=== PATIENT | male | born 1940 | race Caucasian/White ===

== ENCOUNTER 2020-05-05 21:10 | Inpatient (IN) | payer MEDICARE, SELFPAY ==
[2020-05-05 23:33] VITALS: BMI 38.8
[2020-05-06] VITALS (8 sets, daily range): BP systolic 135–178; BP diastolic 71–88; PULSE 66–86; RESP 18–20; TEMP 36.4–37.2; O2SAT 94–100; BMI 37.9; BMI 38.8
[2020-05-06] MEDS: Furosemide 40 MG/4 ML VIAL IVPUSH ×3 (01:00→17:31)
[2020-05-06] MEDS: 0.9 % Sodium Chloride Flush 3 ML SYRINGE 2 ML IVFLUSH ×4 (01:00→23:22)
[2020-05-06] MEDS: carvediloL 6.25 MG TABLET PO ×3 (01:00→21:21)
[2020-05-06] MEDS: Pantoprazole Sodium 40 MG/10 ML VIAL IVPUSH ×3 (01:00→17:31)
[2020-05-06] MEDS: HYDROcodone Bit/Acetam 5/325 TABLET 1 TAB PO ×3 (05:20→21:47)
--- NOTE | 2020-05-06 06:18 | P.HPIM_ITS ---
History of Present Illness Date of Service: 05/05/20 Chief Complaint: multiple complaint /abnormal labs this is a pleasant 79-year-old male with past medical history of COPD, HTN, diabetes, heart failure, CAD, aortic valve replacement who presents to the hospital with multiple complaints. Patient reports that he was called by his PCP to come into the ED for abnormal labs. He reports that he has not been feeling well for the past 1 week or so. He has been having dizziness, lightheadedness, walking imbalance due to the lightheadedness. He also had nausea and vomiting about 6 days ago that has now resolved. He was suffering from constipation but received MiraLax from his PCP which caused him to have d iarrhea but the diarrhea has not resolved. He did have dark stools for the past 3 days. He has been having shortness of breath on exertion with no cough . He has had some lower extremity edema. Fourteen point review of system otherwise negative On arrival to the ED patient hemodynamically stable with no significant abnormal vitals. Next labs are significant for hemoglobin of 9.9 ( 12.8 in April 23), hematocrit of 31.8, MCV of 91.4. Labs are also significant for troponin of 42.5, BNP of 858, and stool occult blood positive patient will be admitted for further management Past medical history: COPD, hypertension, diabetes, heart failure, CAD, AVR Surgical history: Back surgery, neck surgery, cataracts, hernia repair, aortic valve replacement family history: Mother had breast cancer and coronary artery disease social history: Comes from home, lives with his , denies any tobacco alcohol or illicit drug Review of Systems Review of Systems: Yes all other systems are reviewed and are negative FOR[facility]LY [facility] Social History Advance Directives: No Advance Directives Information Provided: No Meds Allergies Allergy/AdvReac Type Severity Reaction Status Date / Time No Known Allergies* Allergy Uncoded 04/23/20 13:56 Home Medications Medication Instructions Recorded Confirmed Type acetaminophen 1,000 mg PO BID PRN 05/06/20 05/06/20 History albuterol sulfate 2.5 mg INHALATION Q4H PRN 05/06/20 05/06/20 History albuterol sulfate [ProAir HFA] 2 puff PO Q4H PRN 05/06/20 05/06/20 History apixaban [Eliquis] 1 tab PO BID 05/06/20 05/06/20 History carvedilol 1 tab PO BID 05/06/20 05/06/20 History docusate sodium [Stool Softener] 1 cap PO BID 05/06/20 05/06/20 History furosemide 1 tab PO DAILY 05/06/20 05/06/20 History hydrocodone-acetaminophen 1 tab PO Q8H PRN 05/06/20 05/06/20 History latanoprost 1 drp OPHTHALMIC-RIGHT BEDTIME 05/06/20 05/06/20 History levobunolol 1 drp OPHTHALMIC-RIGHT BID 05/06/20 05/06/20 History magnesium hydroxide [Milk of 30 ml PO BID PRN 05/06/20 05/06/20 History Magnesia] metformin 1 tab PO BID 05/06/20 05/06/20 History polyethylene glycol 3350 [Miralax] 17 g PO BEDTIME 05/06/20 05/06/20 History potassium chloride 1 tab PO BID 05/06/20 05/06/20 History simvastatin 1 tab PO BEDTIME 05/06/20 05/06/20 History Physical Exam Vital Signs and Narrative: Vital Signs: Last Vital Signs Temp 98.2 F 05/06/20 04:00 Pulse 72 05/06/20 04:00 Resp 18 05/06/20 04:00 BP 160/82 H 05/06/20 04:00 Pulse Ox 96 05/06/20 04:00 Body Mass Index 38.8 on arrival patient's vitals were significant for 98.4 temp, pulse of 73, respiratory rate of 18, blood pressure 168/77 and pulse ox of 95% on room air Const: General: cooperative and no acute distress Orientati on/consciousness: patient oriented x3 Eyes: General: appearance normal, both eyes and all related structures Pupils: Equal, round and reactive pupils present Resp: Effort & Inspection: normal respiratory effort Cardio: Rate: regular rate Rhythm: regular rhythm GI: Other: no tenderness, no guarding or rebound, no distention Inspection: Yes normal to inspection Skin: General skin exam: no rashes or lesions noted Neuro: General: patient oriented x3 Cranial nerves: Yes Equal, round and reactive pupils present Extrem: General: Yes edema ( 1+ lower extremity edema) Results Labs Labs: Laboratory Tests 05/05/20 05/05/20 05/05/20 17:07 17:07 18:18 WBC 8.8 RBC 3.48 L Hgb 9.9 L Hct 31.8 L MCV 91.4 MCH 28.4 MCHC 31.1 RDW Coeff of Leighann 14.1 Plt Count 344 D MPV 9.4 Immature Gran % (Auto) 0.6 H Neut % (Auto) 73.2 H Lymph % (Auto) 17.3 L [place] % (Auto) 7.1 Eos % (Auto) 1.7 Baso % (Auto) 0.1 Abs Immat Gran (auto) 0.05 H Absolute Lymphs (auto) 1.5 Absolute Monos (auto) 0.6 Absolute Eos (auto) 0.2 Absolute Basos (auto) 0.0 Absolute Nucleated RBC 0.000 Nucleated RBC % (auto) 0.0 Absolute Neutrophils 6.5 PT INR APTT Sodium 144 Potassium 3.6 Chloride 104 Bicarbonate 31 H Anion Gap 13 BUN 10 D Creatinine 0.95 Estimated Creat Clear 73.0 Est GFR (Non-Af Amer) > 60 Random Glucose 143 H Fasting Glucose Calcium Magnesium 2.0 Iron 40 L TIBC 256 Iron Saturation 16 L Ferritin 229 Total Bilirubin 0.3 Direct Bilirubin 0.2 AST 39 H D ALT 60 H Alkaline Phosphatase 109 D Troponin I High Sens B-Natriuretic Peptide Total Protein 5.9 L Albumin 3.4 L Lipase 33 Vitamin B12 Folate Urine Color Urine Appearance Urine pH Ur Specific [place] Urine Protein Urine Glucose (UA) Urine Ketones Urine Blood Urine Nitrite Urine WBC (Auto) Stool Occult Blood POS H ABO Group 05/05/20 05/05/20 05/05/20 20:36 20:36 20:36 WBC RBC Hgb Hct MCV MCH MCHC RDW Coeff of [place] Plt Count MPV Immature Gran % (Auto) Neut % (Auto) Lymph % (Auto) [place] % (Auto) Eos % (Auto) Baso % (Auto) Abs Immat Gran (auto) Absolute Lymphs (auto) Absolute Monos (auto) Absolute Eos (auto) Absolute Basos (auto) Absolute Nucleated RBC Nucleated RBC % (auto) Absolute Neutrophils PT 16.7 H INR 1.4 H APTT 33.4 Sodium Potassium Chloride Bicarbonate Anion Gap BUN Creatinine Estimated Creat Clear Est GFR (Non-Af Amer) Random Glucose Fasting Glucose Calcium Magnesium Iron TIBC Iron Saturation Ferritin Total Bilirubin Direct Bilirubin AST ALT Alkaline Phosphatase Troponin I High Sens 42.5 H B-Natriuretic Peptide 858 H Total Protein Albumin Lipase Vitamin B12 Folate Urine Color Urine Appearance Urine pH Ur Specific [place] Urine Protein Urine Glucose (UA) Urine Ketones Urine Blood Urine Nitrite Urine WBC (Auto) Stool Occult Blood ABO Group T&S COMPLETED 05/05/20 05/05/20 05/05/20 21:10 21:47 22:28 WBC RBC Hgb Hct MCV MCH MCHC RDW Coeff of Leighann Plt Count MPV Immature Gran % (Auto) Neut % (Auto) Lymph % (Auto) [place] % (Auto) Eos % (Auto) Baso % (Auto) Abs Immat Gran (auto) Absolute Lymphs (auto) Absolute Monos (auto) Absolute Eos (auto) Absolute Basos (auto) Absolute Nucleated RBC Nucleated RBC % (auto) Absolute Neutrophils PT INR APTT Sodium Potassium Chloride Bicarbonate Anion Gap BUN Creatinine Estimated Creat Clear Est GFR (Non-Af Amer) Random Glucose Fasting Glucose Calcium Magnesium Iron TIBC Iron Saturation Ferritin Cancelled Total Bilirubin Direct Bilirubin AST ALT Alkaline Phosphatase Troponin I High Sens 40.6 H B-Natriuretic Peptide Total Protein Albumin Lipase Vitamin B12 Folate Urine Color YELLOW Urine Appearance CLEAR Urine pH 7.0 Ur Specific [place] 1.010 Urine Protein NEG Urine Glucose (UA) NEG Urine Ketones NEG Urine Blood NEG Urine Nitrite NEG Urine WBC (Auto) NEG Stool Occult Blood ABO Group 05/06/20 05/06/20 05/06/20 07:00 07:00 07:00 WBC Not Rcvd RBC Not Rcvd Hgb Not Rcvd Hct Not Rcvd MCV Not Rcvd MCH Not Rcvd MCHC Not Rcvd RDW Coeff of Leighann Not Rcvd Plt Count Not Rcvd MPV Not Rcvd Immature Gran % (Auto) Not Rcvd Neut % (Auto) Not Rcvd Lymph % (Auto) Not Rcvd [place] % (Auto) Not Rcvd Eos % (Auto) Not Rcvd Baso % (Auto) Not Rcvd Abs Immat Gran (auto) Not Rcvd Absolute Lymphs (auto) Not Rcvd Absolute Monos (auto) Not Rcvd Absolute Eos (auto) Not Rcvd Absolute Basos (auto) Not Rcvd Absolute Nucleated RBC Not Rcvd Nucleated RBC % (auto) Not Rcvd Absolute Neutrophils PT INR APTT Sodium Not Rcvd Potassium Not Rcvd Chloride Not Rcvd Bicarbonate Not Rcvd Anion Gap Not Rcvd BUN Not Rcvd Creatinine Not Rcvd Estimated Creat Clear Not Rcvd Est GFR (Non-Af Amer) Not Rcvd Random Glucose Fasting Glucose Not Rcvd Calcium Not Rcvd Magnesium Iron TIBC Iron Saturation Ferritin Total Bilirubin Direct Bilirubin AST ALT Alkaline Phosphatase Troponin I High Sens B-Natriuretic Peptide Total Protein Albumin Lipase Vitamin B12 Not Rcvd Folate Not Rcvd Urine Color Urine Appearance Urine pH Ur Specific [place] Urine Protein Urine Glucose (UA) Urine Ketones Urine Blood Urine Nitrite Urine WBC (Auto) Stool Occult Blood ABO Group Assessment and Plan (1) Normocytic anemia: Status: Acute - most likely lower GI bleed, normal BUN - stool guaiac positive - patient on Eliquis for history of AVR?, no history of AFib plan: - PPI 40 IV b.i.d. - given his history of CAD hemoglobin threshold of 8 for transfusion - NPO - GI consult (2) CHF exacerbation: Status: Acute - elevated BNP - has dyspnea, orthopnea and PND and lower extremity edema - most likely due to anemia - on 40 of Lasix daily at home plan - will start on Lasix 40 IV b.i.d. - strict I&O, daily weight, low-sodium diet - echo cardio - consult cardiology (3) COPD (chronic obstructive pulmonary disease): Status: Acute no evidence of exacerbation - continue DuoNeb p.r.n. (4) Diabetes mellitus type 2 in obese: Status: Acute on metformin at home will start him on low-dose sliding scale insulin diabetic diet (5) Hypertension: Status: Acute stable continue carvedilol (6) Coronary artery disease: Status: Acute denies any chest pain will continue carvedilol
[2020-05-06 06:43] LABS: MANUAL DIFF FLAG NO
[2020-05-06 06:47] LABS: Basophils Percent Auto 0.2 % (0-2); Eosinophils Absolute Auto 0.1 X10*3/uL (0.0-0.4); Eosinophils Percent Auto 1.6 % (0-4); Hematocrit 30.8 % (42-52); Hemoglobin 9.6 g/dl (14.0-18.0); Imm Gran Abs Auto 0.06 X10*3/uL (0.00-0.03); Imm Gran Pct Auto 0.7 % (0.0-0.4); Lymphocytes Absolute Auto 1.5 X10*3/uL (1.2-4.9); Lymphocytes Percent Auto 18.8 % (20-40); Mean Corpuscular HGB Conc 31.2 g/dl (31.0-36.0); Mean Corpuscular Hemoglobin 28.5 pg (27.0-33.0); Mean Corpuscular Volume 91.4 fL (80-98); Mean Platelet Volume 9.7 fL (9.4-12.4); Monocytes Absolute Auto 0.6 X10*3/uL (0.1-1.2); Monocytes Percent Auto 7.6 % (2-11); Neutrophils Absolute Auto 5.8 X10*3/uL (2.0-8.3); Neutrophils Percent Auto 71.1 % (45-73); Platelet Count 360 X10*3/uL (160-400); Red Blood Count 3.37 X10*6/uL (4.60-5.80); Red Cell Distribution Width 14.2 % (11.0-16.0); White Blood Count 8.1 X10*3/uL (4.8-10.8)
[2020-05-06 06:56] LABS: Anion Gap 10 (12-20); Blood Urea Nitrogen 9 mg/dL (9-16); Calcium 8.2 mg/dL (8.4-10.2); Carbon Dioxide 32 mmol/L (22-29); Chloride 104 mmol/L (96-108); Creatinine Clr Calc Pharmacy 77.9; Estimated Glomerular Filt Rate > 60; Glucose Fasting 139 mg/dL (60-99); Potassium 3.4 mmol/l (3.3-5.1); Sodium 143 mmol/L (135-145)
[2020-05-06 07:26] LABS: Glucose, Whole Blood 134 mg/dL (60-115)
--- NOTE | 2020-05-06 08:02 | P.CDIC_ITS ---
CDI Concurrent Query Service Date: 05/06/20 Documentation Clarification: Please clarify if you are treating a proba ble/suspected/likely or confirmed: Acute diastolic and/or systolic Congestive heart failure Acute on chronic diastolic and/or systolic Congestive heart failure Please specify if known Acute CHF, unclear if diastolic/systolic Provider Response: CHF PLEASE DO NOT DELETE/MODIFY EXISTING CONTENT Additional information is needed in order to code to the highest accuracy and appropriate Severity of Illness (SOI). Please clarify the information noted below in your progress notes and discharge summary. Risk Factors/Clinical Indicators/Treatments ED: Clinical impression: Acute moderate systolic, left ventricular congestive heart failure. Hypoxemia. BNP 858 History of Congestive heart failure CDS: Franchesca Garsia Contact Number: [phone] Please Review the information above and exercise your independent professional judgment in responding to the query. If you concur, pleas document in the PROGRESS NOTES and DISCHARGE SUMMARY. If you do not agree with the query, please document in the query above. THIS QUERY IS PART OF THE PERMANENT MEDICAL RECORD
[2020-05-06 08:05] LABS: Folate 18.3 ng/mL (> or = 4.0); Vitamin B12 820 pg/mL (200-900)
--- NOTE | 2020-05-06 09:15 | CA_ITS ---
Transthoracic Echocardiogram Patient (Last, First, Middle): Vishal Ford F Gender: Male Date of : 1940 Age: 79 Procedure Date: 05/06/2020 Procedure Type: Transthoracic Echocardiogram Location: [facility] [place] Height: 167.64 cm Weight: 108.86 kg BSA: 2.16 m2 Heart Rate: bpm Seam Stay Stitcher: THI Fatima MD: Rebecca Harper MD Rn Lpn Cna: Boris Samaniego MD Symptoms: [facility] [place] Study Quality: Technically Difficult ECG Rhythm: Undetermined question ventricularly paced Conclusions: - 1. Technically difficult study despite using definity contrast 2. Normal LV systolic function with impaired relaxation filling pattern 3. Mildly dilated left atrium 4. Severe mitral annular calcification 5. Limited evaluation of cardiac valves with normal cardiac valvular Doppler 6. Normal RV systolic pressure Findings Procedure Information Contrast agent, definity, is being given per protocol without apparent complications. Left Ventricle The left ventricular systolic function is normal. The visually estimated ejection fraction is between 55-60%. Regional wall motion abnormalities can not be excluded due to suboptimal endocardial definition. There is paradoxical septal motion consistent with a right ventricular pacemaker. Diastolic function is indeterminate on the basis of available data. Right Ventricle The right ventricle was not well visualized. There is a pacemaker wire seen in the right ventricle. Atria The left atrium is mildly dilated. The right atrium was not well visualized. A pacemaker wire is identified in the right atrium. Aortic Valve The aortic valve was not well visualized. There is no aortic valve stenosis. There is no aortic valve regurgitation. Mitral Valve There is severe mitral annular calcification. There is trace mitral valve regurgitation. There is no mitral valve stenosis. Pulmonic Valve The pulmonic valve was not well visualized. Tricuspid Valve Likely normal tricuspid valve structure and function. There is mild tricuspid valve regurgitation. The right ventricular systolic pressure is normal. The right ventricular systolic pressure is 33 mmHg. There is no evidence of pulmonary hypertension. Great Vessels The aorta was not well visualized. The pulmonary artery was not well visualized. Venous The inferior vena cava was not well visualized. Pericardium/Pleural The pericardium was not well visualized. Prior Study Comparison No prior study available for comparison. Measurements 2D Systolic Function EF 4C: 65.30 >55% EF 2C: 52.80 >55% EF BiP: 57.50 >55% Mitral Valve MV Pk E: 0.69 MV PK A: 1.07 MV Decel Time: 144.00 E/A: 0.60 E'Lateral: 7.54 E'Medial: 7.25 E/E' Med: 9.60 E/E' Lat: 9.20 PHT: 42.00 MVA PHT: 5.24 Decel [place]: 4.80 Aortic Valve AoV Pk Arun: 2.82 AoV Mn Arun: 2.08 AoV VTI: 0.62 AoV Pk Grad: 32.00 Aov Mn Grad: 20.00 LVOT LVOT Pk Arun: 1.08 LVOT Mn Arun: 0.79 LVOT VTI: 0.22 LVOT Pk Grad: 5.00 LVOT Mn Grad: 3.00 Diastolic Function MV Pk E: 0.69 MV Pk A: 1.07 E/A: 0.60 E'Medial: 7.25 E/E' Med: 9.60 E' Laterial: 7.54 E/E' Lat: 9.20 Tricuspid Valve TR Pk Arun: 2.50 TR Pk Grad: 25.00 RA Press: 8.00 RVSP: 33.00 Updated in Other Vendor System with Status of Final Boris Samaniego MD electronically signed on 05/06/2020 4:42:29 PM with status of Final
--- NOTE | 2020-05-06 10:10 | MHC.CM.PN ---
IMM 05/06/20 Male 79 Lives with Dtr. Pt reports independent ADLS and ambulation with devices, shower bench, walker. No HCP Ed provided, pt declined. DP home no services family transport. CM will follow to assess for change in DC needs.
[2020-05-06 11:12] LABS: Glucose, Whole Blood 266 mg/dL (60-115)
[2020-05-06] MEDS: Insulin Lispro 100 UNIT/ML 3 ML VIAL SUBCUT (12:02)
[2020-05-06] MEDS: Albuterol Sulfate 90 MCG 8 GM INHALER 2 PUFF INHALE ×3 (12:03→21:40)
--- NOTE | 2020-05-06 14:31 | PM.IMPN ---
Subjective Subjective Date of Service: 05/06/20 Interval History: seen and examined this morning Still feeling short of breath with minimal exertion denies any bleeding Constitutional Constitutional: Reports fatigue and Denies fever(s) Cardiovascular Cardiovascular: Denies chest pain and Reports dyspnea Respiratory Respiratory: Reports dyspnea Gastrointestinal Gastrointestinal: Reports abdominal pain and Reports vomiting Endocrine Endocrine: Reports fatigue Physical Exam Vital Signs and I&O and Narrative: Vital Signs and I&O: Vital Signs Temp 97.5 F 05/06/20 12:00 Pulse 76 05/06/20 12:00 Resp 20 05/06/20 12:00 BP 135/73 05/06/20 12:00 Pulse Ox 94 05/06/20 12:00 Intake & Output 05/05/20 05/06/20 05/06/20 18:59 06:59 18:59 Intake Total 400 / 400 240 / 240 Balance 400 / 400 240 / 240 Weight 106.651 kg 109.1 kg Intake: Intake, Oral [place] unt 400 / 400 240 / 240 Other: Continuous Bladd er Irrigation Fluid - Amount I nstilled Condom 400 Body Mass Index 38.8 Const: General: cooperative and comfortable Orientation/consciousness: oriented to person and oriented to place Chest: Chest palpation & inspection: normal inspection of the chest Resp: Effort & Inspection: normal respiratory effort Auscultation: clear to auscultation bilaterally Cardio: Heart sounds: S1 normal heart sound present and S2 normal heart sound present Neuro: General: oriented to person and oriented to place Objective Data Current Medications Generic Name Dose Route Start Last Admin Trade Name Freq PRN Reason Stop Dose Admin Acetaminophen 650 mg 05/06/20 00:01 Acetaminophen 325 Mg Tablet PO Q6H PRN FEVER/PAIN.MILD (SCALE 1-3) Hydrocodone Bitart/Acetaminophen 1 tab 05/06/20 00:01 05/06/20 13:59 Hydrocodone Bit/Acetam 5/325 Tablet PO 1 tab Q8H PRN Administration Pain, Moderate (Pain Scale 4-6 Albuterol Sulfate 2 puff 05/06/20 00:01 05/06/20 12:03 Albuterol Sulfate 90 Mcg 8 Gm Inhaler INHALE 2 puff RQ4H PRN Administration RESPIRATORY DISTRESS Carvedilol 6.25 mg 05/06/20 09:00 05/06/20 09:36 Carvedilol 6.25 Mg Tablet PO 6.25 mg BID DAVID Administration Docusate Sodium 100 mg 05/06/20 00:01 Docusate Sodium 100 Mg Capsule PO Q24H PRN Constipation Furosemide 40 mg 05/06/20 09:00 05/06/20 09:35 Furosemide 40 Mg/4 Ml Vial IVPUSH 40 mg BID@0900,1800 [facility] Administration Protocol Insulin Human Lispro 0 unit 05/06/20 07:30 05/06/20 12:02 Insulin Lispro 100 Unit/Ml 3 Ml Vial SUBCUT 6 unit QIDACHS [facility] Administration Protocol Latanoprost 1 drop 05/06/20 21:00 Latanoprost 0.005 % Ophth Danielle 2.5 Ml Drops EYE-RIGHT BEDTIME [facility] Ondansetron HCl 4 mg 05/06/20 00:01 Ondansetron Hcl 4 Mg/2 Ml Vial IVPUSH Q8H PRN Nausea and Vomiting Pantoprazole Sodium 40 mg 05/06/20 06:30 05/06/20 09:35 Pantoprazole Sodium 40 Mg/10 Ml Vial IVPUSH 40 mg BID@0630,1630 [facility] Administration Potassium Chloride 10 meq 05/06/20 09:00 05/06/20 09:36 Potassium Chloride Er 10 Meq Capsule.Er PO 10 meq BID DAVID Administration Sodium Chloride 2 ml 05/06/20 08:00 05/06/20 09:38 0.9 % Sodium Chloride Flush 3 Ml Syringe IVFLUSH 2 ml QSHIFT [facility] Administration Labs CBC & Chem 7: 05/06/20 07:00 05/06/20 07:00 Labs: Laboratory Results - last 24 hr 05/05/20 05/05/20 05/05/20 17:07 17:07 18:18 MCV 91.4 MCH 28.4 MCHC 31.1 RDW RDW Coeff of Leighann 14.1 Plt Count 344 D MPV 9.4 Immature Gran % (Auto) 0.6 H Neut % (Auto) 73.2 H Lymph % (Auto) 17.3 L Hodgeman % (Auto) 7.1 Eos % (Auto) 1.7 Baso % (Auto) 0.1 Neut # (Auto) Lymph # (Auto) Hodgeman # (Auto) Eos # (Auto) Baso # (Auto) Abs Immat Gran (auto) 0.05 H Absolute Lymphs (auto) 1.5 Absolute Monos (auto) 0.6 Absolute Eos (auto) 0.2 Absolute Basos (auto) 0.0 Absolute Nucleated RBC 0.000 Nucleated RBC % (auto) 0.0 Absolute Neutrophils 6.5 PT INR APTT Bicarbonate 31 H Anion Gap 13 Estimated Creat Clear 73.0 Estim Creat Clear Calc Estimated GFR Est GFR (Non-Af Amer) > 60 POC Glucose Random Glucose 143 H Fasting Glucose Calcium Magnesium 2.0 Iron 40 L TIBC 256 Iron Saturation 16 L Ferritin 229 Total Bilirubin 0.3 Direct Bilirubin 0.2 AST 39 H D ALT 60 H Alkaline Phosphatase 109 D Troponin I High Sens B-Natriuretic Peptide Total Protein 5.9 L Albumin 3.4 L Lipase 33 Vitamin B12 Folate Urine Color Urine Appearance Urine pH Ur Specific [place] Urine Protein Urine Glucose (UA) Urine Ketones Urine Blood Urine Nitrite Urine WBC (Auto) Stool Occult Blood POS H Blood Type ABO Group Antibody Screen 05/05/20 05/05/20 05/05/20 20:34 20:36 20:36 MCV MCH MCHC RDW RDW Coeff of Leighann Plt Count MPV Immature Gran % (Auto) Neut % (Auto) Lymph % (Auto) Hodgeman % (Auto) Eos % (Auto) Baso % (Auto) Neut # (Auto) Lymph # (Auto) Hodgeman # (Auto) Eos # (Auto) Baso # (Auto) Abs Immat Gran (auto) Absolute Lymphs (auto) Absolute Monos (auto) Absolute Eos (auto) Absolute Basos (auto) Absolute Nucleated RBC Nucleated RBC % (auto) Absolute Neutrophils PT INR APTT Bicarbonate Anion Gap Estimated Creat Clear Estim Creat Clear Calc Estimated GFR Est GFR (Non-Af Amer) POC Glucose Random Glucose Fasting Glucose Calcium Magnesium Iron TIBC Iron Saturation Ferritin Total Bilirubin Direct Bilirubin AST ALT Alkaline Phosphatase Troponin I High Sens 42.5 H B-Natriuretic Peptide 858 H Total Protein Albumin Lipase Vitamin B12 Folate Urine Color Urine Appearance Urine pH Ur Specific [place] Urine Protein Urine Glucose (UA) Urine Ketones Urine Blood Urine Nitrite Urine WBC (Auto) Stool Occult Blood Blood Type O Positive ABO Group T&S COMPLETED Antibody Screen NEGATIVE 05/05/20 05/05/20 05/05/20 20:36 21:10 21:47 MCV MCH MCHC RDW RDW Coeff of Leighann Plt Count MPV Immature Gran % (Auto) Neut % (Auto) Lymph % (Auto) Hodgeman % (Auto) Eos % (Auto) Baso % (Auto) Neut # (Auto) Lymph # (Auto) Hodgeman # (Auto) Eos # (Auto) Baso # (Auto) Abs Immat Gran (auto) Absolute Lymphs (auto) Absolute Monos (auto) Absolute Eos (auto) Absolute Basos (auto) Absolute Nucleated RBC Nucleated RBC % (auto) Absolute Neutrophils PT 16.7 H INR 1.4 H APTT 33.4 Bicarbonate Anion Gap Estimated Creat Clear Estim Creat Clear Calc Estimated GFR Est GFR (Non-Af Amer) POC Glucose Random Glucose Fasting Glucose Calcium Magnesium Iron TIBC Iron Saturation Ferritin Cancelled Total Bilirubin Direct Bilirubin AST ALT Alkaline Phosphatase Troponin I High Sens B-Natriuretic Peptide Total Protein Albumin Lipase Vitamin B12 Folate Urine Color YELLOW Urine Appearance CLEAR Urine pH 7.0 Ur Specific Aurora 1.010 Urine Protein NEG Urine Glucose (UA) NEG Urine Ketones NEG Urine Blood NEG Urine Nitrite NEG Urine WBC (Auto) NEG Stool Occult Blood Blood Type ABO Group Antibody Screen 05/05/20 05/06/20 05/06/20 22:28 05:48 05:48 MCV 91.4 MCH 28.5 MCHC 31.2 RDW 14.2 RDW Coeff of Leighann Plt Count 360 MPV 9.7 Immature Gran % (Auto) 0.7 H Neut % (Auto) 71.1 Lymph % (Auto) 18.8 L Hodgeman % (Auto) 7.6 Eos % (Auto) 1.6 Baso % (Auto) 0.2 Neut # (Auto) 5.8 Lymph # (Auto) 1.5 Hodgeman # (Auto) 0.6 Eos # (Auto) 0.1 Baso # (Auto) 0.0 Abs Immat Gran (auto) 0.06 H Absolute Lymphs (auto) Absolute Monos (auto) Absolute Eos (auto) Absolute Basos (auto) Absolute Nucleated RBC 0.000 Nucleated RBC % (auto) 0.0 Absolute Neutrophils PT INR APTT Bicarbonate Anion Gap 10 L Estimated Creat Clear Estim Creat Clear Calc 77.9 Estimated GFR > 60 Est GFR (Non-Af Amer) POC Glucose Random Glucose Fasting Glucose 139 H Calcium 8.2 L Magnesium Iron TIBC Iron Saturation Ferritin Total Bilirubin Direct Bilirubin AST ALT Alkaline Phosphatase Troponin I High Sens 40.6 H B-Natriuretic Peptide Total Protein Albumin Lipase Vitamin B12 Folate Urine Color Urine Appearance Urine pH Ur Specific [place] Urine Protein Urine Glucose (UA) Urine Ketones Urine Blood Urine Nitrite Urine WBC (Auto) Stool Occult Blood Blood Type ABO Group Antibody Screen 05/06/20 05/06/20 05/06/20 05:48 05:48 07:00 MCV MCH MCHC RDW RDW Coeff of Leighann Plt Count MPV Immature Gran % (Auto) Neut % (Auto) Lymph % (Auto) Hodgeman % (Auto) Eos % (Auto) Baso % (Auto) Neut # (Auto) Lymph # (Auto) Hodgeman # (Auto) Eos # (Auto) Baso # (Auto) Abs Immat Gran (auto) Absolute Lymphs (auto) Absolute Monos (auto) Absolute Eos (auto) Absolute Basos (auto) Absolute Nucleated RBC Nucleated RBC % (auto) Absolute Neutrophils PT INR APTT Bicarbonate Not Rcvd Anion Gap Not Rcvd Estimated Creat Clear Not Rcvd Estim Creat Clear Calc Estimated GFR Est GFR (Non-Af Amer) Not Rcvd POC Glucose Random Glucose Fasting Glucose Not Rcvd Calcium Not Rcvd Magnesium Iron TIBC Iron Saturation Ferritin Total Bilirubin Direct Bilirubin AST ALT Alkaline Phosphatase Troponin I High Sens B-Natriuretic Peptide Total Protein Albumin Lipase Vitamin B12 820 Folate 18.3 Urine Color Urine Appearance Urine pH Ur Specific [place] Urine Protein Urine Glucose (UA) Urine Ketones Urine Blood Urine Nitrite Urine WBC (Auto) Stool Occult Blood Blood Type O Positive ABO Group Antibody Screen 05/06/20 05/06/20 05/06/20 07:00 07:00 07:20 MCV Not Rcvd MCH Not Rcvd MCHC Not Rcvd RDW RDW Coeff of Leighann Not Rcvd Plt Count Not Rcvd MPV Not Rcvd Immature Gran % (Auto) Not Rcvd Neut % (Auto) Not Rcvd Lymph % (Auto) Not Rcvd Hodgeman % (Auto) Not Rcvd Eos % (Auto) Not Rcvd Baso % (Auto) Not Rcvd Neut # (Auto) Lymph # (Auto) Hodgeman # (Auto) Eos # (Auto) Baso # (Auto) Abs Immat Gran (auto) Not Rcvd Absolute Lymphs (auto) Not Rcvd Absolute Monos (auto) Not Rcvd Absolute Eos (auto) Not Rcvd Absolute Basos (auto) Not Rcvd Absolute Nucleated RBC Not Rcvd Nucleated RBC % (auto) Not Rcvd Absolute Neutrophils PT INR APTT Bicarbonate Anion Gap Estimated Creat Clear Estim Creat Clear Calc Estimated GFR Est GFR (Non-Af Amer) POC Glucose 134 H Random Glucose Fasting Glucose Calcium Magnesium Iron TIBC Iron Saturation Ferritin Total Bilirubin Direct Bilirubin AST ALT Alkaline Phosphatase Troponin I High Sens B-Natriuretic Peptide Total Protein Albumin Lipase Vitamin B12 Not Rcvd Folate Not Rcvd Urine Color Urine Appearance Urine pH Ur Specific [place] Urine Protein Urine Glucose (UA) Urine Ketones Urine Blood Urine Nitrite Urine WBC (Auto) Stool Occult Blood Blood Type ABO Group Antibody Screen 05/06/20 10:59 MCV MCH MCHC RDW RDW Coeff of Leighann Plt Count MPV Immature Gran % (Auto) Neut % (Auto) Lymph % (Auto) Hodgeman % (Auto) Eos % (Auto) Baso % (Auto) Neut # (Auto) Lymph # (Auto) Hodgeman # (Auto) Eos # (Auto) Baso # (Auto) Abs Immat Gran (auto) Absolute Lymphs (auto) Absolute Monos (auto) Absolute Eos (auto) Absolute Basos (auto) Absolute Nucleated RBC Nucleated RBC % (auto) Absolute Neutrophils PT INR APTT Bicarbonate Anion Gap Estimated Creat Clear Estim Creat Clear Calc Estimated GFR Est GFR (Non-Af Amer) POC Glucose 266 H Random Glucose Fasting Glucose Calcium Magnesium Iron TIBC Iron Saturation Ferritin Total Bilirubin Direct Bilirubin AST ALT Alkaline Phosphatase Troponin I High Sens B-Natriuretic Peptide Total Protein Albumin Lipase Vitamin B12 Folate Urine Color Urine Appearance Urine pH Ur Specific [place] Urine Protein Urine Glucose (UA) Urine Ketones Urine Blood Urine Nitrite Urine WBC (Auto) Stool Occult Blood Blood Type ABO Group Antibody Screen Progress Note: A&P (1) Symptomatic anemia: Status: Acute (2) Coronary artery disease: Status: Acute (3) Hypertension: Status: Acute (4) Diabetes mellitus type 2 in obese: Status: Acute (5) COPD (chronic obstructive pulmonary disease): Status: Acute (6) CHF exacerbation: Status: Acute Assessment and Plan: This is a 79-year-old male with a past medical history of CHF, diabetes, on Eliquis (unclear why) who presents with SOB. 1. Symptomatic anemia FOBT positive h/h stable eliquis on hold GI consult 2. CHF exacerbation iv lasix echo i/o 3. DM ISS diabetic diet 4. CAD coreg Full Code
[2020-05-06 16:37] LABS: Glucose, Whole Blood 167 mg/dL (60-115)
[2020-05-06 16:37] LABS: Glucose, Whole Blood 138 mg/dL (60-115)
[2020-05-06 21:55] LABS: Glucose, Whole Blood 146 mg/dL (60-115)
[2020-05-06] MEDS: Latanoprost 0.005 % Ophth Sol 2.5 ML DROPS 1 DROP EYE-RIGHT (23:03)
[2020-05-06] MEDS: Acetaminophen 325 MG TABLET 650 MG PO (23:21)
[2020-05-07] VITALS (8 sets, daily range): BP systolic 136–180; BP diastolic 69–100; PULSE 69–85; RESP 16–22; TEMP 36.1–37; O2SAT 94–97; BMI 38.5
[2020-05-07] MEDS: Albuterol Sulfate 90 MCG 8 GM INHALER 2 PUFF INHALE ×4 (02:14→21:45)
[2020-05-07 07:34] LABS: Glucose, Whole Blood 169 mg/dL (60-115)
[2020-05-07] MEDS: Insulin Lispro 100 UNIT/ML 3 ML VIAL SUBCUT ×3 (08:06→21:41)
[2020-05-07] MEDS: Docusate Sodium 100 MG CAPSULE PO (08:16)
[2020-05-07] MEDS: HYDROcodone Bit/Acetam 5/325 TABLET 1 TAB PO (08:16)
[2020-05-07] MEDS: Furosemide 40 MG/4 ML VIAL IVPUSH ×2 (08:17→16:51)
[2020-05-07] MEDS: Pantoprazole Sodium 40 MG/10 ML VIAL IVPUSH ×2 (08:18→16:51)
[2020-05-07] MEDS: 0.9 % Sodium Chloride Flush 3 ML SYRINGE 2 ML IVFLUSH ×3 (08:24→21:42)
[2020-05-07] MEDS: carvediloL 6.25 MG TABLET PO ×2 (08:26→21:41)
[2020-05-07 11:31] LABS: Glucose, Whole Blood 269 mg/dL (60-115)
--- NOTE | 2020-05-07 12:01 | P.PNIM_ITS ---
Subjective Subjective Interval History: Seen in f/u for SOB d/t CHF. Anemia with with FOB + Less SOB but feels constipatated Physical Exam Vital Signs and I&O and Narrative: Vital Signs and I&O: Vital Signs Temp 96.9 F 05/07/20 11:13 Pulse 71 05/07/20 11:13 Resp 20 05/07/20 11:13 BP 141/69 H 05/07/20 11:13 Pulse Ox 97 05/07/20 11:13 Const: General: cooperative, comfortable and no acute distress Orientation/consciousness: oriented to person, oriented to place and patient oriented x3 Eyes: General: appearance normal, both eyes and all related structures Pupils: Equal, round and reactive pupils present Chest: Chest palpation & inspection: normal inspection of the chest Resp: Effort & Inspection: normal respiratory effort Auscultation: clear to auscultation bilaterally Cardio: Rate: regular rate Rhythm: regular rhythm Heart sounds: S1 normal heart sound present and S2 normal heart sound present GI: Other: no tenderness, no guarding or rebound, no distention Inspection: Yes normal to inspection Skin: General skin exam: no rashes or lesions noted Neuro: General: oriented to person, oriented to place and patient oriented x3 Cranial nerves: Yes Equal, round and reactive pupils present Extrem: General: Yes edema ( 1+ lower extremity edema) Objective Data Current Medications Generic Name Dose Route Start Last Admin Trade Name Freq PRN Reason Stop Dose Admin Acetaminophen 650 mg 05/06/20 00:01 05/06/20 23:21 Acetaminophen 325 Mg Tablet PO 650 mg Q6H PRN Administration FEVER/PAIN.MILD (SCALE 1-3) Hydrocodone Bitart/Acetaminophen 1 tab 05/06/20 00:01 05/07/20 08:16 Hydrocodone Bit/Acetam 5/325 Tablet PO 1 tab Q8H PRN Administration Pain, Moderate (Pain Scale 4-6 Albuterol Sulfate 2 puff 05/06/20 00:01 05/07/20 08:08 Albuterol Sulfate 90 Mcg 8 Gm Inhaler INHALE 2 puff RQ4H PRN Administration RESPIRATORY DISTRESS Carvedilol 6.25 mg 05/06/20 09:00 05/07/20 08:26 Carvedilol 6.25 Mg Tablet PO 6.25 mg BID DAVID Administration Docusate Sodium 100 mg 05/06/20 00:01 05/07/20 08:16 Docusate Sodium 100 Mg Capsule PO 100 mg Q24H PRN Administration Constipation Furosemide 40 mg 05/06/20 09:00 05/07/20 08:17 Furosemide 40 Mg/4 Ml Vial IVPUSH 40 mg BID@0900,1800 [facility] Administration Protocol Insulin Human Lispro 0 unit 05/06/20 07:30 05/07/20 11:43 Insulin Lispro 100 Unit/Ml 3 Ml Vial SUBCUT 6 unit QIDACHS [facility] Administration Protocol Latanoprost 1 drop 05/06/20 21:00 05/06/20 23:03 Latanoprost 0.005 % Ophth Danielle 2.5 Ml Drops EYE-RIGHT 1 drop BEDTIME DAVID Administration Ondansetron HCl 4 mg 05/06/20 00:01 Ondansetron Hcl 4 Mg/2 Ml Vial IVPUSH Q8H PRN Nausea and Vomiting Pantoprazole Sodium 40 mg 05/06/20 06:30 05/07/20 08:18 Pantoprazole Sodium 40 Mg/10 Ml Vial IVPUSH 40 mg BID@0630,1630 [facility] Administration Potassium Chloride 10 meq 05/06/20 09:00 05/07/20 08:17 Potassium Chloride Er 10 Meq Capsule.Er PO 10 meq BID DAVID Administration Sodium Chloride 2 ml 05/06/20 08:00 05/07/20 08:24 0.9 % Sodium Chloride Flush 3 Ml Syringe IVFLUSH 2 ml QSHIFT [facility] Administration Labs CBC & Chem 7: 05/06/20 07:00 05/06/20 07:00 Labs: Laboratory Results - last 24 hr 05/06/20 05/06/20 05/06/20 15:55 16:26 21:48 POC Glucose 167 H 138 H 146 H 05/07/20 05/07/20 07:20 11:26 POC Glucose 169 H 269 H Assessment and Plan (1) Symptomatic anemia: Status: Acute (2) Coronary artery disease: Status: Acute (3) Hypertension: Status: Acute (4) Diabetes mellitus type 2 in obese: Status: Acute (5) COPD (chronic obstructive pulmonary disease): Status: Acute (6) CHF exacerbation: Status: Acute Assessment and Plan: 79-year-old male with a past medical history of CHF, diabetes, on Eliquis (unclear why) who presents with SOB. 1. Symptomatic Anemia FOBT positive h/h stable eliquis on hold GI consult is pending 2. CHF exacerbation IV whit Downey to PO today echo pending i/o 3. DM ISS diabetic diet 4. CAD coreg 5. Constipation--bowel regimen Full Code
[2020-05-07 12:40] LABS: Hematocrit 33.4 % (42-52); Hemoglobin 10.5 g/dl (14.0-18.0); Mean Corpuscular HGB Conc 31.4 g/dl (31.0-36.0); Mean Corpuscular Hemoglobin 28.8 pg (27.0-33.0); Mean Corpuscular Volume 91.5 fL (80-98); Mean Platelet Volume 9.2 fL (9.4-12.4); Platelet Count 388 X10*3/uL (160-400); Red Blood Count 3.65 X10*6/uL (4.60-5.80); Red Cell Distribution Width 14.3 % (11.0-16.0); White Blood Count 8.8 X10*3/uL (4.8-10.8)
--- NOTE | 2020-05-07 15:07 | MHC.CM.PN ---
HCP COMPLETED WITH PT TODAY NAMING HIS DAUGHTER WITH WHOM HE LIVES, ÁNGELA GAGE ([phone]) HIS PRIMARY AND HIS SON, LILIANA GAGE JR ([phone]) HIS SECONDARY PROXY.
[2020-05-07 16:47] LABS: Glucose, Whole Blood 145 mg/dL (60-115)
[2020-05-07 21:22] LABS: Glucose, Whole Blood 188 mg/dL (60-115)
[2020-05-07] MEDS: Latanoprost 0.005 % Ophth Sol 2.5 ML DROPS 1 DROP EYE-RIGHT (21:40)
[2020-05-08] VITALS (7 sets, daily range): BP systolic 146–166; BP diastolic 78–91; PULSE 64–78; RESP 18–20; TEMP 35.9–36.4; O2SAT 93–97; BMI 86.0
[2020-05-08] MEDS: HYDROcodone Bit/Acetam 5/325 TABLET 1 TAB PO ×3 (00:45→17:19)
[2020-05-08] MEDS: Acetaminophen 325 MG TABLET 650 MG PO ×3 (02:31→21:36)
[2020-05-08] MEDS: Pantoprazole Sodium 40 MG/10 ML VIAL IVPUSH ×2 (05:50→17:18)
[2020-05-08 07:58] LABS: Glucose, Whole Blood 158 mg/dL (60-115)
[2020-05-08] MEDS: carvediloL 6.25 MG TABLET PO ×2 (08:56→21:36)
[2020-05-08] MEDS: Furosemide 40 MG/4 ML VIAL IVPUSH (08:56)
[2020-05-08] MEDS: 0.9 % Sodium Chloride Flush 3 ML SYRINGE 2 ML IVFLUSH ×3 (08:57→21:37)
[2020-05-08] MEDS: Albuterol Sulfate 90 MCG 8 GM INHALER 2 PUFF INHALE (11:03)
[2020-05-08 11:52] LABS: Glucose, Whole Blood 216 mg/dL (60-115)
[2020-05-08] MEDS: Insulin Lispro 100 UNIT/ML 3 ML VIAL SUBCUT ×3 (12:15→21:36)
[2020-05-08] MEDS: Lactulose 20 GM/30 ML SOLUTION 15 GM PO (12:17)
--- NOTE | 2020-05-08 12:36 | CONS_ITS ---
DATE OF SERVICE: 05/07/2020 REFERRING PHYSICIAN: Dr. Haider REASON FOR CONSULTATION: Symptomatic anemia. HISTORY OF PRESENT ILLNESS: The patient is a pleasant 79-year-old man, who was admitted to the hospital on with complaints of lightheadedness and weakness with nausea and vomiting and dark stools. He has been noted to be anemic with a hemoglobin of 9.9, which is down from 12.8 in 2018. Stools have been occult blood positive. He reports no bleeding and no upper GI symptoms. He previously had undergone colonoscopy in [address] Cannon for bleeding diverticular disease as an outpatient. He has been on Eliquis, but has no history of atrial fibrillation. This has been held since admission. PAST MEDICAL HISTORY: 1. Congestive heart failure. 2. Coronary artery disease and aortic valve replacement. 3. Diabetes mellitus. 4. Hypertension. CURRENT MEDICATIONS: His current medication list is reviewed in the chart. ALLERGIES: NKDA. FAMILY HISTORY: This is reviewed with the patient and is noncontributory. SOCIAL HISTORY: There is no current tobacco, alcohol, or substance abuse. REVIEW OF SYSTEMS: SKIN: No pruritus. HEENT: Negative. CARDIOPULMONARY: No shortness of breath or chest pain. GASTROINTESTINAL: As above. GENITOURINARY: Negative. NEUROPSYCHIATRIC: Negative. PHYSICAL EXAMINATION: GENERAL: Reveals a pleasant male, lying comfortably in bed. VITAL SIGNS: Reviewed in electronic medical record and are stable. SKIN: Pale. HEENT: Shows no scleral icterus. NECK: Without lymphadenopathy or thyromegaly. LUNGS: Clear. HEART: Shows a regular rate and rhythm. S1, S2. No murmur. ABDOMEN: Soft without focal masses or tenderness. Bowel sounds are present. No organomegaly is noted. EXTREMITIES: Show edema. LABORATORY DATA: Reviewed. IMPRESSION: Anemia with Hemoccult-positive stools in the setting of anticoagulation. I did discuss colonoscopy and endoscopy with the patient. This will be arranged for Sunday if he is stable from a cardiac standpoint. He understands risks and benefits and agrees to proceed. Thanks for asking me to see him. I will follow him in the hospital with you. MD ELISABETH Ozuna/CATHERINE / [phone]
--- NOTE | 2020-05-08 16:51 | P.PNIM_ITS ---
Subjective Subjective Date of Service: 05/08/20 Interval History: patient admitted for shortness of breath and diagnosed to have congestive heart failure and anemia patient complaining of constipation this a.m. otherwise denies any shortness of breath, no chest pain no other acute issues overnight. Review of Systems General patient denies lightheadedness dizziness. Cardiovascular no chest pain, no palpitation. Respiratory complaining of shortness of breath and tightness,no cough. Skin no rash Physical Exam Vital Signs and I&O and Narrative: Vital Signs and I&O: Vital Signs Temp 97.4 F 05/08/20 16:23 Pulse 69 05/08/20 16:23 Resp 18 05/08/20 16:23 BP 149/82 H 05/08/20 16:23 Pulse Ox 96 05/08/20 16:23 Intake & Output 05/07/20 05/08/20 05/08/20 18:59 06:59 18:59 Intake Total 460 / 1660 1200 / 1660 480 / 480 Output Total 1800 / 3000 1200 / 3000 650 / 650 Balance -1340 / -1340 0 / -1340 -170 / -170 Urine Output (Aver age ml/kg/hr) 1.39 0.41 0.22 Weight 242 kg Intake: Intake, Oral [place]ister unt 460 / 1660 1200 / 1660 480 / 480 Output: Output, Urine Am ount 1200 / 2400 1200 / 2400 650 / 650 Output, Urine Am ount (Catheter) 600 / 600 Condom 600 / 600 Other: Meal Refused No NPO No Breakfast % Eate n 100% 100% Lunch % Eaten 100% 100% Afternoon Snack % Eaten 100 Dinner % Eaten 100% Diabetic Snack % Eaten 100 Urine Urinal Urine Color Yellow Body Mass Index 86.0 general patient sitting comfortably in no distress. Neck is supple no JVD. Lungs clear to auscultation diminished breath sounds right base no wheeze, no rh onchi noted. Gastrointestinal abdomen obese soft nontender bowel sounds audible. Heart regular rate rhythm. Extremities Bilateral pitting edema. Skin no rash no pallor. Neurological examination patient awake alert no neuro deficit noted. Objective Data Current Medications Generic Name Dose Route Start Last Admin Trade Name Freq PRN Reason Stop Dose Admin Acetaminophen 650 mg 05/06/20 00:01 05/08/20 14:53 Acetaminophen 325 Mg Tablet PO 650 mg Q6H PRN Administration FEVER/PAIN.MILD (SCALE 1-3) Hydrocodone Bitart/Acetaminophen 1 tab 05/06/20 00:01 05/08/20 09:02 Hydrocodone Bit/Acetam 5/325 Tablet PO 1 tab Q8H PRN Administration Pain, Moderate (Pain Scale 4-6 Albuterol Sulfate 2 puff 05/06/20 00:01 05/08/20 11:03 Albuterol Sulfate 90 Mcg 8 Gm Inhaler INHALE 2 puff RQ4H PRN Administration RESPIRATORY DISTRESS Carvedilol 6.25 mg 05/06/20 09:00 05/08/20 08:56 Carvedilol 6.25 Mg Tablet PO 6.25 mg BID DAVID Administration Docusate Sodium 100 mg 05/06/20 00:01 05/07/20 08:16 Docusate Sodium 100 Mg Capsule PO 100 mg Q24H PRN Administration Constipation Insulin Human Lispro 0 unit 05/06/20 07:30 05/08/20 12:15 Insulin Lispro 100 Unit/Ml 3 Ml Vial SUBCUT 4 unit QIDACHS [facility] Administration Protocol Latanoprost 1 drop 05/06/20 21:00 05/07/20 21:40 Latanoprost 0.005 % Ophth Danielle 2.5 Ml Drops EYE-RIGHT 1 drop BEDTIME [facility]ID Administration Ondansetron HCl 4 mg 05/06/20 00:01 Ondansetron Hcl 4 Mg/2 Ml Vial IVPUSH Q8H PRN Nausea and Vomiting Pantoprazole Sodium 40 mg 05/06/20 06:30 05/08/20 05:50 Pantoprazole Sodium 40 Mg/10 Ml Vial IVPUSH 40 mg BID@0630,1630 [facility] Administration Polyethylene Glycol/Electrolytes 4,000 ml 05/09/20 13:30 Peg 3350/Na Sulf,Bicarb,Cl/Kcl 4,000 Ml Soln.Recon PO 05/09/20 13:31 ONCE@1330 DAVID Potassium Chloride 10 meq 05/06/20 09:00 05/08/20 08:56 Potassium Chloride Er 10 Meq Capsule.Er PO 10 meq BID DAVID Administration Sodium Chloride 2 ml 05/06/20 08:00 05/08/20 08:57 0.9 % Sodium Chloride Flush 3 Ml Syringe IVFLUSH 2 ml QSHIFT [facility] Administration Labs CBC & Chem 7: 05/07/20 12:29 05/06/20 07:00 Labs: Laboratory Results - last 24 hr 05/07/20 05/08/20 05/08/20 21:14 07:54 11:48 POC Glucose 188 H 158 H 216 H Assessment and Plan (1) Symptomatic anemia: Status: Acute (2) Coronary artery disease: Status: Acute (3) Hypertension: Status: Acute (4) Diabetes mellitus type 2 in obese: Status: Acute (5) COPD (chronic obstructive pulmonary disease): Status: Acute (6) CHF exacerbation: Status: Acute (7) Normocytic anemia: Status: Acute Assessment and Plan: Symptomatic anemia. Patient presented with shortness of breath and weakness and noted to be anemic with his heme-positive stool patient seen by it applications manager and will be undergoing upper endoscopy and colonoscopy on Sunday continue current diet and NPO Sunday morning. Will continue IV Protonix no active GI bleed noted. Patient was on Eliquis currently held, Will verify medications with PCP on Sunday. acute Diastolic congestive heart failure patient noted to have elevated BNP on admission with bilateral leg edema currently on IV Lasix patient lung examination is normal therefore will hold IV Lasix and will place patient on ovidio ly Lasix once a day will follow BNP and electrolytes at a.m. History of COPD no acute exacerbation Will continue home inhalers. Constipation persistent will give lactulose and follow bowel movement. History of coronary artery disease continue Coreg no acute symptoms of chest pain. Insulin-dependent diabetes mellitus blood sugars elevated continue insulin sliding scale. DVT prophylaxis on compression boots.
[2020-05-08 17:11] LABS: Glucose, Whole Blood 163 mg/dL (60-115)
[2020-05-08 21:30] LABS: Glucose, Whole Blood 157 mg/dL (60-115)
[2020-05-08] MEDS: Latanoprost 0.005 % Ophth Sol 2.5 ML DROPS 1 DROP EYE-RIGHT (21:37)
[2020-05-09] VITALS (10 sets, daily range): BP systolic 132–180; BP diastolic 60–90; PULSE 65–77; RESP 14–20; TEMP 36.3–36.8; O2SAT 95–98; BMI 37.4
[2020-05-09] MEDS: Pantoprazole Sodium 40 MG/10 ML VIAL IVPUSH ×2 (05:38→18:55)
[2020-05-09] MEDS: HYDROcodone Bit/Acetam 5/325 TABLET 1 TAB PO ×2 (06:26→14:48)
[2020-05-09 06:51] LABS: MANUAL DIFF FLAG NO
[2020-05-09 07:02] LABS: Basophils Percent Auto 0.3 % (0-2); Eosinophils Absolute Auto 0.2 X10*3/uL (0.0-0.4); Eosinophils Percent Auto 2.6 % (0-4); Hematocrit 32.7 % (42-52); Hemoglobin 10.2 g/dl (14.0-18.0); Imm Gran Abs Auto 0.03 X10*3/uL (0.00-0.03); Imm Gran Pct Auto 0.4 % (0.0-0.4); Lymphocytes Percent Auto 28.3 % (20-40); Mean Corpuscular HGB Conc 31.2 g/dl (31.0-36.0); Mean Corpuscular Hemoglobin 28.7 pg (27.0-33.0); Mean Corpuscular Volume 91.9 fL (80-98); Mean Platelet Volume 9.4 fL (9.4-12.4); Monocytes Absolute Auto 0.6 X10*3/uL (0.1-1.2); Monocytes Percent Auto 8.8 % (2-11); Neutrophils Absolute Auto 4.1 X10*3/uL (2.0-8.3); Neutrophils Percent Auto 59.6 % (45-73); Platelet Count 379 X10*3/uL (160-400); Red Blood Count 3.56 X10*6/uL (4.60-5.80); Red Cell Distribution Width 14.4 % (11.0-16.0); White Blood Count 6.9 X10*3/uL (4.8-10.8)
[2020-05-09 07:23] LABS: B Type Natriuretic Peptide 217 pg/mL (<100)
[2020-05-09 07:35] LABS: Glucose, Whole Blood 127 mg/dL (60-115)
[2020-05-09 07:43] LABS: Anion Gap 12 (12-20); Carbon Dioxide 32 mmol/L (22-29); Chloride 101 mmol/L (96-108); Creatinine Clr Calc Pharmacy 70.1; Estimated Glomerular Filt Rate > 60; Glucose Random 132 mg/dL (60-115); Sodium 141 mmol/L (135-145)
[2020-05-09 07:46] LABS: Blood Urea Nitrogen 17 mg/dL (9-16); Calcium 8.7 mg/dL (8.4-10.2)
[2020-05-09] MEDS: lisinopriL 10 MG TABLET PO (09:58)
[2020-05-09] MEDS: Furosemide 40 MG/4 ML SOLUTION PO (09:58)
[2020-05-09] MEDS: carvediloL 6.25 MG TABLET PO ×2 (09:59→21:59)
[2020-05-09] MEDS: 0.9 % Sodium Chloride Flush 3 ML SYRINGE 2 ML IVFLUSH ×3 (10:00→22:00)
[2020-05-09 11:29] LABS: Glucose, Whole Blood 258 mg/dL (60-115)
[2020-05-09] MEDS: Insulin Lispro 100 UNIT/ML 3 ML VIAL SUBCUT (12:51)
[2020-05-09] MEDS: Albuterol Sulfate 90 MCG 8 GM INHALER 2 PUFF INHALE (12:55)
[2020-05-09] MEDS: PEG 3350/Na Sulf,Bicarb,Cl/KCL 4,000 ML SOLN.RECON 4000 ML PO (14:49)
--- NOTE | 2020-05-09 15:26 | P.PNIM_ITS ---
Subjective Subjective Date of Service: 05/09/20 Interval History: patient admitted for shortness of breath and diagnosed to have congestive heart failure and anemia patient complaining of Intermittent shortness of breath/ tightness feels related to COPD use updraft treatment twice daily and as needed albuterol at home, otherwise denies any chest pain no other acute patient had 2 normal bowel movements.. Review of Systems review of systems [employer] no headache, no dizziness CVS no chest pain, no palpitation. Gastrointestinal no nausea no vomiting constipation resolved Physical Exam Vital Signs and I&O and Narrative: Vital Signs and I&O: Vital Signs Temp 97.7 F 05/09/20 11:29 Pulse 74 05/09/20 11:29 Resp 20 05/09/20 11:29 BP 167/81 H 05/09/20 11:29 Pulse Ox 97 05/09/20 11:29 Intake & Output 05/08/20 05/09/20 05/09/20 18:59 06:59 18:59 Intake Total 480 / 480 720 / 720 Output Total 650 / 1000 350 / 1000 950 / 950 Balance -170 / -520 -350 / -520 -230 / -230 Urine Output (Aver age ml/kg/hr) 0.22 0.28 0.75 Weight 105.2 kg Intake: Intake, Oral [place] unt 480 / 480 720 / 720 Output: Output, Urine Am ount 650 / 1000 350 / 1000 950 / 950 Other: Meal Refused No NPO No Breakfast % Eate n 100% 100% Lunch % Eaten 100% 100% Urine Urinal Bathroom Urinal Urine Color Yellow Yellow Yellow Body Mass Index 37.4 general patient sitting comfortably in no distress. Neck is supple no JVD. Lungs clear to auscultation diminished breath sounds right base no wheeze, no rhonchi noted. Gastrointestinal abdomen obese , soft nontender bowel sounds audible. Heart regular rate rhythm. Extremities Bilateral pitting edema resolved. Skin no rash no pallor. Neurological examination patient awake alert no neuro deficit noted. Objective Data Current Medications Generic Name Dose Route Start Last Admin Trade Name Freq PRN Reason Stop Dose Admin Acetaminophen 650 mg 05/06/20 00:01 05/08/20 21:36 Acetaminophen 325 Mg Tablet PO 650 mg Q6H PRN Administration FEVER/PAIN.MILD (SCALE 1-3) Hydrocodone Bitart/Acetaminophen 1 tab 05/06/20 00:01 05/09/20 14:48 Hydrocodone Bit/Acetam 5/325 Tablet PO 1 tab Q8H PRN Administration Pain, Moderate (Pain Scale 4-6 Albuterol Sulfate 2 puff 05/06/20 00:01 05/09/20 12:55 Albuterol Sulfate 90 Mcg 8 Gm Inhaler INHALE 2 puff RQ4H PRN Administration RESPIRATORY DISTRESS Carvedilol 6.25 mg 05/06/20 09:00 05/09/20 09:59 Carvedilol 6.25 Mg Tablet PO 6.25 mg BID DAVID Administration Docusate Sodium 100 mg 05/06/20 00:01 05/07/20 08:16 Docusate Sodium 100 Mg Capsule PO 100 mg Q24H PRN Administration Constipation Furosemide 40 mg 05/09/20 09:15 05/09/20 09:58 Furosemide 40 Mg/4 Ml Solution PO 40 mg DAILY [facility] Administration Protocol Insulin Human Lispro 0 unit 05/06/20 07:30 05/09/20 12:51 Insulin Lispro 100 Unit/Ml 3 Ml Vial SUBCUT 6 unit QIDACHS [facility] Administration Protocol Latanoprost 1 drop 05/06/20 21:00 05/08/20 21:37 Latanoprost 0.005 % Ophth Danielle 2.5 Ml Drops EYE-RIGHT 1 drop BEDTIME DAVID Administration Lisinopril 10 mg 05/09/20 10:00 05/09/20 09:58 Lisinopril 10 Mg Tablet PO 10 mg DAILY DAVID Administration Protocol Ondansetron HCl 4 mg 05/06/20 00:01 Ondansetron Hcl 4 Mg/2 Ml Vial IVPUSH Q8H PRN Nausea and Vomiting Potassium Chloride 10 meq 05/06/20 09:00 05/09/20 09:59 Potassium Chloride Er 10 Meq Capsule.Er PO 10 meq BID DAVID Administration Sodium Chloride 2 ml 05/06/20 08:00 05/09/20 10:00 0.9 % Sodium Chloride Flush 3 Ml Syringe IVFLUSH 2 ml QSHIFT [facility] Administration Labs CBC & Chem 7: 05/09/20 06:27 05/09/20 06:27 Labs: Laboratory Results - last 24 hr 05/05/20 05/06/20 05/06/20 17:07 05:48 07:00 Hct 31.8 L 30.8 L Not Rcvd MCV MCH MCHC RDW Plt Count MPV Immature Gran % (Auto) Neut % (Auto) Lymph % (Auto) Harvey % (Auto) Eos % (Auto) Baso % (Auto) Neut # (Auto) Lymph # (Auto) Harvey # (Auto) Eos # (Auto) Baso # (Auto) Abs Immat Gran (auto) Absolute Nucleated RBC Nucleated RBC % (auto) Anion Gap Estim Creat Clear Calc Estimated GFR POC Glucose Random Glucose Calcium B-Natriuretic Peptide 05/07/20 05/08/20 05/08/20 12:29 17:07 21:20 Hct 33.4 L MCV MCH MCHC RDW Plt Count MPV Immature Gran % (Auto) Neut % (Auto) Lymph % (Auto) Harvey % (Auto) Eos % (Auto) Baso % (Auto) Neut # (Auto) Lymph # (Auto) Harvey # (Auto) Eos # (Auto) Baso # (Auto) Abs Immat Gran (auto) Absolute Nucleated RBC Nucleated RBC % (auto) Anion Gap Estim Creat Clear Calc Estimated GFR POC Glucose 163 H 157 H Random Glucose Calcium B-Natriuretic Peptide 05/09/20 05/09/20 05/09/20 06:27 06:27 06:27 Hct 32.7 L MCV 91.9 MCH 28.7 MCHC 31.2 RDW 14.4 Plt Count 379 MPV 9.4 Immature Gran % (Auto) 0.4 Neut % (Auto) 59.6 Lymph % (Auto) 28.3 Harvey % (Auto) 8.8 Eos % (Auto) 2.6 Baso % (Auto) 0.3 Neut # (Auto) 4.1 Lymph # (Auto) 2.0 Harvey # (Auto) 0.6 Eos # (Auto) 0.2 Baso # (Auto) 0.0 Abs Immat Gran (auto) 0.03 Absolute Nucleated RBC 0.000 Nucleated RBC % (auto) 0.0 Anion Gap 12 Estim Creat Clear Calc 70.1 Estimated GFR > 60 POC Glucose Random Glucose 132 H Calcium 8.7 B-Natriuretic Peptide 217 H 05/09/20 05/09/20 07:29 11:25 Hct MCV MCH MCHC RDW Plt Count MPV Immature Gran % (Auto) Neut % (Auto) Lymph % (Auto) Harvey % (Auto) Eos % (Auto) Baso % (Auto) Neut # (Auto) Lymph # (Auto) Harvey # (Auto) Eos # (Auto) Baso # (Auto) Abs Immat Gran (auto) Absolute Nucleated RBC Nucleated RBC % (auto) Anion Gap Estim Creat Clear Calc Estimated GFR POC Glucose 127 H 258 H Random Glucose Calcium B-Natriuretic Peptide Assessment and Plan (1) Symptomatic anemia: Status: Acute (2) Coronary artery disease: Status: Acute (3) Hypertension: Status: Acute (4) Diabetes mellitus type 2 in obese: Status: Acute (5) COPD (chronic obstructive pulmonary disease): Status: Acute (6) CHF exacerbation: Status: Acute (7) Normocytic anemia: Status: Acute Assessment and Plan: Symptomatic anemia. Patient presented with shortness of breath and weakness and noted to be anemic with heme-positive stool patient seen by archival records clerk and will be undergoing upper endoscopy and colonoscopy on Sunday continue current diet and NPO Sunday morning. Will continue IV Protonix no active GI bleed noted. Patient was on Eliquis due to risk of CVA currently held. acute Diastolic congestive heart failure patient noted to have elevated BNP on admission with bilateral leg edema no patient feeling significantly better no orthopnea, PND leg edema has resolved therefore patient placed back on by mouth Lasix 40 mg daily home dose. BNP trended down History of COPD no acute exacerbation Will continue home inhalers and add scheduled updraft twice daily. Constipation resolved History of coronary artery disease continue Coreg no acute symptoms of chest pain. Insulin-dependent diabetes mellitus blood sugars fluctuating continue insulin sliding scale. DVT prophylaxis on compression boots.
[2020-05-09 16:49] LABS: Glucose, Whole Blood 133 mg/dL (60-115)
[2020-05-09 21:55] LABS: Glucose, Whole Blood 129 mg/dL (60-115)
[2020-05-09] MEDS: Latanoprost 0.005 % Ophth Sol 2.5 ML DROPS 1 DROP EYE-RIGHT (21:59)
[2020-05-10] VITALS (12 sets, daily range): BP systolic 96–184; BP diastolic 53–100; PULSE 71–88; RESP 16–22; TEMP 36–36.8; O2SAT 95–100
[2020-05-10] MEDS: Albuterol Sulfate 90 MCG 8 GM INHALER 2 PUFF INHALE (04:01)
[2020-05-10] MEDS: Pantoprazole Sodium 40 MG/10 ML VIAL IVPUSH ×2 (05:25)
[2020-05-10 08:38] LABS: Glucose, Whole Blood 164 mg/dL (60-115)
[2020-05-10 11:22] LABS: Glucose, Whole Blood 155 mg/dL (60-115)
--- NOTE | 2020-05-10 12:28 | P.PNIM_ITS ---
Subjective Subjective Interval History: patient admitted for shortness of breath and diagnosed to have congestive heart failure and anemia patient complaining of chest tightness feels related to COPD use updraft treatment twice daily and as needed albuterol at home, otherwise denies any chest pain no other acute issues overnight, has had multiple normal bowel sounds last night due to colonoscopy prep. Physical Exam Vital Signs and I&O and Narrative: Vital Signs and I&O: Vital Signs Temp 97.8 F 05/10/20 08:24 Pulse 72 05/10/20 08:24 Resp 20 05/10/20 08:24 BP 160/88 H 05/10/20 08:24 Pulse Ox 95 05/10/20 08:24 Intake & Output 05/09/20 05/10/20 05/10/20 18:59 06:59 18:59 Intake Total 720 / 960 240 / 960 Output Total 1050 / 1450 400 / 1450 Balance -330 / -490 -160 / -490 Urine Output (Aver age ml/kg/hr) 0.83 0.32 Intake: Intake, Oral [place] unt 720 / 960 240 / 960 Output: Output, Urine Am ount 1050 / 1450 400 / 1450 Other: Breakfast % Eate n 100% Lunch % Eaten 100% Diabetic Snack % Eaten 100 Urine Urinal Urinal Urine Color Yellow Last Bowel Movem ent 05/10/20 Stool Bathroom Stool Color Clear Stool Consistenc y Watery Body Mass Index 37.4 General sitting comfortably in no distress. Neck is supple no JVD. Lungs clear to auscultation diminished breath sounds right base no wheeze, no rhonchi noted, no change from yesterday. Gastrointestinal abdomen obese , soft nontender bowel sounds audible. Heart regular rate rhythm. Extremities no edema. Skin no rash, no pallor. Neurological examination patient awake alert no neuro deficit noted. Objective Data Current Medications Generic Name Dose Route Start Last Admin Trade Name Freq PRN Reason Stop Dose Admin Acetaminophen 650 mg 05/06/20 00:01 05/08/20 21:36 Acetaminophen 325 Mg Tablet PO 650 mg Q6H PRN Administration FEVER/PAIN.MILD (SCALE 1-3) Hydrocodone Bitart/Acetaminophen 1 tab 05/06/20 00:01 05/09/20 14:48 Hydrocodone Bit/Acetam 5/325 Tablet PO 1 tab Q8H PRN Administration Pain, Moderate (Pain Scale 4-6 Albuterol Sulfate 2 puff 05/06/20 00:01 05/10/20 04:01 Albuterol Sulfate 90 Mcg 8 Gm Inhaler INHALE 2 puff RQ4H PRN Administration RESPIRATORY DISTRESS Carvedilol 6.25 mg 05/06/20 09:00 05/09/20 21:59 Carvedilol 6.25 Mg Tablet PO 6.25 mg BID DAVID Administration Docusate Sodium 100 mg 05/06/20 00:01 05/07/20 08:16 Docusate Sodium 100 Mg Capsule PO 100 mg Q24H PRN Administration Constipation Furosemide 40 mg 05/09/20 09:15 05/09/20 09:58 Furosemide 40 Mg/4 Ml Solution PO 40 mg DAILY [facility] Administration Protocol Insulin Human Lispro 0 unit 05/06/20 07:30 05/10/20 12:00 Insulin Lispro 100 Unit/Ml 3 Ml Vial SUBCUT Not Given QIDACHS [facility] Protocol Latanoprost 1 drop 05/06/20 21:00 05/09/20 21:59 Latanoprost 0.005 % Ophth Danielle 2.5 Ml Drops EYE-RIGHT 1 drop BEDTIME [facility] Administration Lisinopril 10 mg 05/09/20 10:00 05/09/20 09:58 Lisinopril 10 Mg Tablet PO 10 mg DAILY [facility] Administration Protocol Ondansetron HCl 4 mg 05/06/20 00:01 Ondansetron Hcl 4 Mg/2 Ml Vial IVPUSH Q8H PRN Nausea and Vomiting Pantoprazole Sodium 40 mg 05/09/20 16:00 05/10/20 05:25 Pantoprazole Sodium 40 Mg/10 Ml Vial IVPUSH 40 mg DAILY@0630 [facility] Administration Potassium Chloride 10 meq 05/06/20 09:00 05/09/20 21:59 Potassium Chloride Er 10 Meq Capsule.Er PO 10 meq BID DAVID Administration Sodium Chloride 2 ml 05/06/20 08:00 05/09/20 22:00 0.9 % Sodium Chloride Flush 3 Ml Syringe IVFLUSH 2 ml QSHIFT [facility] Administration Labs CBC & Chem 7: 05/09/20 06:27 05/09/20 06:27 Labs: Laboratory Results - last 24 hr 10/04/20 10/04/20 10/05/20 16:46 21:50 08:30 POC Glucose 133 H 129 H 164 H 05/10/20 11:13 POC Glucose 155 H Assessment and Plan (1) Symptomatic anemia: Status: Acute (2) Coronary artery disease: Status: Acute (3) Hypertension: Status: Acute (4) Diabetes mellitus type 2 in obese: Status: Acute (5) COPD (chronic obstructive pulmonary disease): Status: Acute (6) CHF exacerbation: Status: Acute (7) Normocytic anemia: Status: Acute Assessment and Plan: Symptomatic anemia. Patient presented with shortness of breath and weakness and noted to be anemic with heme-positive stool patient seen by pet care assistant and will be undergoing upper endoscopy and colonoscopy on today, is NPO Will continue IV Protonix no active GI bleed noted. Patient was on Eliquis due to risk of CVA currently on hold,held. acute Diastolic congestive heart failure patient noted to have elevated BNP on admission with bilateral leg edema, patient treated with IV Lasix, with good response patient feeling significantly better no orthopnea, PND leg edema has resolved ,therefore patient placed back on by mouth Lasix 40 mg daily home dose. BNP trended down, will hold Lasix today since patient is NPO for endoscopy, follow clinical course. History of COPD no acute exacerbation Will continue home inhalers and scheduled updraft twice daily. Hypertension blood pressure elevated today will give Coreg and lisinopril and follow BP closely Constipation resolved History of coronary artery disease continue Coreg no acute symptoms of chest pain. Insulin-dependent diabetes mellitus blood sugars fluctuating continue insulin sliding scale, blood sugar 155 this a.m. status post prosthetic aortic valve replacement DVT prophylaxis on compression boots.
[2020-05-10] MEDS: lisinopriL 10 MG TABLET PO (13:08)
[2020-05-10] MEDS: carvediloL 6.25 MG TABLET PO ×2 (13:09→21:43)
[2020-05-10] MEDS: 0.9 % Sodium Chloride Flush 3 ML SYRINGE 2 ML IVFLUSH ×3 (13:10→23:33)
[2020-05-10 13:53] LABS: Glucose, Whole Blood 142 mg/dL (60-115)
[2020-05-10] MEDS: Albuterol Sulfate (0.083%) 2.5 MG/3 ML VIAL.NEB INHALE (14:04)
--- NOTE | 2020-05-10 14:07 | PC.NURSE ---
patient receiving resp treatment at this time. hob 90 degrees.
--- NOTE | 2020-05-10 14:22 | P.CONAN_ITS ---
FORM[facility]LY [facility] Social History Social History Smoking Status: Former smoker Smoked in Last 30 Days: No Patient Interested in Nicotine Replacement: No Patient Given Instructions on How to Stop Smoking: No Second Hand Smoke Exposure: No Use of substances other than those prescribed or required for medical reasons: No Currently Displaying Signs/Symptoms of Drug Intoxication Withdrawal: No Advance Directives: No Advance Directives Information Provided: No Do you have thoughts of harming others: None Do you have a plan to hurt others: No Plan service: No Current occupational status: retired [employer] Allergies Allergy/AdvReac Type Severity Reaction Status Date / Time No Known Allergies* Allergy Uncoded 04/23/20 13:56 Home Medications Medication Instructions Recorded Confirmed Type acetaminophen 1,000 mg PO BID PRN 05/06/20 05/06/20 History albuterol sulfate 2.5 mg INHALATION Q4H PRN 05/06/20 05/06/20 History albuterol sulfate [ProAir HFA] 2 puff PO Q4H PRN 05/06/20 05/06/20 History apixaban [Eliquis] 1 tab PO BID 05/06/20 05/06/20 History carvedilol 1 tab PO BID 05/06/20 05/06/20 History docusate sodium [Stool Softener] 1 cap PO BID 05/06/20 05/06/20 History furosemide 1 tab PO DAILY 05/06/20 05/06/20 History hydrocodone-acetaminophen 1 tab PO Q8H PRN 05/06/20 05/06/20 History latanoprost 1 drp OPHTHALMIC-RIGHT BEDTIME 05/06/20 05/06/20 History levobunolol 1 drp OPHTHALMIC-RIGHT BID 05/06/20 05/06/20 History magnesium hydroxide [Milk of 30 ml PO BID PRN 05/06/20 05/06/20 History Magnesia] metformin 1 tab PO BID 05/06/20 05/06/20 History polyethylene glycol 3350 [Miralax] 17 g PO BEDTIME 05/06/20 05/06/20 History potassium chloride 1 tab PO BID 05/06/20 05/06/20 History simvastatin 1 tab PO BEDTIME 05/06/20 05/06/20 History Exam Exam Date and Time: May 10, 2020 1422 Height,Weight and Vital Signs: Height 5 ft 6 in Weight 105.2 kg Last Vital Signs Temp 98.2 F 05/10/20 13:54 Pulse 80 05/10/20 13:54 Resp 22 H 05/10/20 13:54 BP 142/100 H 05/10/20 13:54 Pulse Ox 96 05/10/20 13:54 Pertinent Lab Results Pertinent Lab Results: Laboratory Tests 05/05/20 05/05/20 05/05/20 17:07 17:07 18:18 WBC 8.8 RBC 3.48 L Hgb 9.9 L Hct 31.8 L MCV 91.4 MCH 28.4 MCHC 31.1 RDW RDW Coeff of Leighann 14.1 Plt Count 344 D MPV 9.4 Immature Gran % (Auto) 0.6 H Neut % (Auto) 73.2 H Lymph % (Auto) 17.3 L [place] % (Auto) 7.1 Eos % (Auto) 1.7 Baso % (Auto) 0.1 Neut # (Auto) Lymph # (Auto) [place] # (Auto) Eos # (Auto) Baso # (Auto) Abs Immat Gran (auto) 0.05 H Absolute Lymphs (auto) 1.5 Absolute Monos (auto) 0.6 Absolute Eos (auto) 0.2 Absolute Basos (auto) 0.0 Absolute Nucleated RBC 0.000 Nucleated RBC % (auto) 0.0 Absolute Neutrophils 6.5 PT INR APTT Sodium 144 Potassium 3.6 Chloride 104 Carbon Dioxide Bicarbonate 31 H Anion Gap 13 BUN 10 D Creatinine 0.95 Estimated Creat Clear 73.0 Estim Creat Clear Calc Estimated GFR Est GFR (Non-Af Amer) > 60 POC Glucose Random Glucose 143 H Fasting Glucose Calcium Magnesium 2.0 Iron 40 L TIBC 256 Iron Saturation 16 L Ferritin 229 Total Bilirubin 0.3 Direct Bilirubin 0.2 AST 39 H D ALT 60 H Alkaline Phosphatase 109 D Troponin I High Sens B-Natriuretic Peptide Total Protein 5.9 L Albumin 3.4 L Lipase 33 Vitamin B12 Folate Urine Color Urine Appearance Urine pH Ur Specific [place] Urine Protein Urine Glucose (UA) Urine Ketones Urine Blood Urine Nitrite Urine WBC (Auto) Stool Occult Blood POS H Blood Type ABO Group Antibody Screen 05/05/20 05/05/20 05/05/20 20:34 20:36 20:36 WBC RBC Hgb Hct MCV MCH MCHC RDW RDW Coeff of Leighann Plt Count MPV Immature Gran % (Auto) Neut % (Auto) Lymph % (Auto) [place] % (Auto) Eos % (Auto) Baso % (Auto) Neut # (Auto) Lymph # (Auto) [place] # (Auto) Eos # (Auto) Baso # (Auto) Abs Immat Gran (auto) Absolute Lymphs (auto) Absolute Monos (auto) Absolute Eos (auto) Absolute Basos (auto) Absolute Nucleated RBC Nucleated RBC % (auto) Absolute Neutrophils PT INR APTT Sodium Potassium Chloride Carbon Dioxide Bicarbonate Anion Gap BUN Creatinine Estimated Creat Clear Estim Creat Clear Calc Estimated GFR Est GFR (Non-Af Amer) POC Glucose Random Glucose Fasting Glucose Calcium Magnesium Iron TIBC Iron Saturation Ferritin Total Bilirubin Direct Bilirubin AST ALT Alkaline Phosphatase Troponin I High Sens 42.5 H B-Natriuretic Peptide 858 H Total Protein Albumin Lipase Vitamin B12 Folate Urine Color Urine Appearance Urine pH Ur Specific [place] Urine Protein Urine Glucose (UA) Urine Ketones Urine Blood Urine Nitrite Urine WBC (Auto) Stool Occult Blood Blood Type O Positive ABO Group T&S COMPLETED Antibody Screen NEGATIVE 05/05/20 05/05/20 05/05/20 20:36 21:10 21:47 WBC RBC Hgb Hct MCV MCH MCHC RDW RDW Coeff of Leighann Plt Count MPV Immature Gran % (Auto) Neut % (Auto) Lymph % (Auto) [place] % (Auto) Eos % (Auto) Baso % (Auto) Neut # (Auto) Lymph # (Auto) [place] # (Auto) Eos # (Auto) Baso # (Auto) Abs Immat Gran (auto) Absolute Lymphs (auto) Absolute Monos (auto) Absolute Eos (auto) Absolute Basos (auto) Absolute Nucleated RBC Nucleated RBC % (auto) Absolute Neutrophils PT 16.7 H INR 1.4 H APTT 33.4 Sodium Potassium Chloride Carbon Dioxide Bicarbonate Anion Gap BUN Creatinine Estimated Creat Clear Estim Creat Clear Calc Estimated GFR Est GFR (Non-Af Amer) POC Glucose Random Glucose Fasting Glucose Calcium Magnesium Iron TIBC Iron Saturation Ferritin Cancelled Total Bilirubin Direct Bilirubin AST ALT Alkaline Phosphatase Troponin I High Sens B-Natriuretic Peptide Total Protein Albumin Lipase Vitamin B12 Folate Urine Color YELLOW Urine Appearance CLEAR Urine pH 7.0 Ur Specific [place] 1.010 Urine Protein NEG Urine Glucose (UA) NEG Urine Ketones NEG Urine Blood NEG Urine Nitrite NEG Urine WBC (Auto) NEG Stool Occult Blood Blood Type ABO Group Antibody Screen 05/05/20 05/06/20 05/06/20 22:28 05:48 05:48 WBC 8.1 RBC 3.37 L Hgb 9.6 L Hct 30.8 L MCV 91.4 MCH 28.5 MCHC 31.2 RDW 14.2 RDW Coeff of Leighann Plt Count 360 MPV 9.7 Immature Gran % (Auto) 0.7 H Neut % (Auto) 71.1 Lymph % (Auto) 18.8 L [place] % (Auto) 7.6 Eos % (Auto) 1.6 Baso % (Auto) 0.2 Neut # (Auto) 5.8 Lymph # (Auto) 1.5 [place] # (Auto) 0.6 Eos # (Auto) 0.1 Baso # (Auto) 0.0 Abs Immat Gran (auto) 0.06 H Absolute Lymphs (auto) Absolute Monos (auto) Absolute Eos (auto) Absolute Basos (auto) Absolute Nucleated RBC 0.000 Nucleated RBC % (auto) 0.0 Absolute Neutrophils PT INR APTT Sodium 143 Potassium 3.4 Chloride 104 Carbon Dioxide 32 H Bicarbonate Anion Gap 10 L BUN 9 Creatinine 0.89 Estimated Creat Clear Estim Creat Clear Calc 77.9 Estimated GFR > 60 Est GFR (Non-Af Amer) POC Glucose Random Glucose Fasting Glucose 139 H Calcium 8.2 L Magnesium Iron TIBC Iron Saturation Ferritin Total Bilirubin Direct Bilirubin AST ALT Alkaline Phosphatase Troponin I High Sens 40.6 H B-Natriuretic Peptide Total Protein Albumin Lipase Vitamin B12 Folate Urine Color Urine Appearance Urine pH Ur Specific [place] Urine Protein Urine Glucose (UA) Urine Ketones Urine Blood Urine Nitrite Urine WBC (Auto) Stool Occult Blood Blood Type ABO Group Antibody Screen 05/06/20 05/06/20 05/06/20 05:48 05:48 07:00 WBC RBC Hgb Hct MCV MCH MCHC RDW RDW Coeff of Leighann Plt Count MPV Immature Gran % (Auto) Neut % (Auto) Lymph % (Auto) [place] % (Auto) Eos % (Auto) Baso % (Auto) Neut # (Auto) Lymph # (Auto) [place] # (Auto) Eos # (Auto) Baso # (Auto) Abs Immat Gran (auto) Absolute Lymphs (auto) Absolute Monos (auto) Absolute Eos (auto) Absolute Basos (auto) Absolute Nucleated RBC Nucleated RBC % (auto) Absolute Neutrophils PT INR APTT Sodium Not Rcvd Potassium Not Rcvd Chloride Not Rcvd Carbon Dioxide Bicarbonate Not Rcvd Anion Gap Not Rcvd BUN Not Rcvd Creatinine Not Rcvd Estimated Creat Clear Not Rcvd Estim Creat Clear Calc Estimated GFR Est GFR (Non-Af Amer) Not Rcvd POC Glucose Random Glucose Fasting Glucose Not Rcvd Calcium Not Rcvd Magnesium Iron TIBC Iron Saturation Ferritin Total Bilirubin Direct Bilirubin AST ALT Alkaline Phosphatase Troponin I High Sens B-Natriuretic Peptide Total Protein Albumin Lipase Vitamin B12 820 Folate 18.3 Urine Color Urine Appearance Urine pH Ur Specific [place] Urine Protein Urine Glucose (UA) Urine Ketones Urine Blood Urine Nitrite Urine WBC (Auto) Stool Occult Blood Blood Type O Positive ABO Group Antibody Screen 05/06/20 05/06/20 05/06/20 07:00 07:00 07:20 WBC Not Rcvd RBC Not Rcvd Hgb Not Rcvd Hct Not Rcvd MCV Not Rcvd MCH Not Rcvd MCHC Not Rcvd RDW RDW Coeff of Leighann Not Rcvd Plt Count Not Rcvd MPV Not Rcvd Immature Gran % (Auto) Not Rcvd Neut % (Auto) Not Rcvd Lymph % (Auto) Not Rcvd [place] % (Auto) Not Rcvd Eos % (Auto) Not Rcvd Baso % (Auto) Not Rcvd Neut # (Auto) Lymph # (Auto) [place] # (Auto) Eos # (Auto) Baso # (Auto) Abs Immat Gran (auto) Not Rcvd Absolute Lymphs (auto) Not Rcvd Absolute Monos (auto) Not Rcvd Absolute Eos (auto) Not Rcvd Absolute Basos (auto) Not Rcvd Absolute Nucleated RBC Not Rcvd Nucleated RBC % (auto) Not Rcvd Absolute Neutrophils PT INR APTT Sodium Potassium Chloride Carbon Dioxide Bicarbonate Anion Gap BUN Creatinine Estimated Creat Clear Estim Creat Clear Calc Estimated GFR Est GFR (Non-Af Amer) POC Glucose 134 H Random Glucose Fasting Glucose Calcium Magnesium Iron TIBC Iron Saturation Ferritin Total Bilirubin Direct Bilirubin AST ALT Alkaline Phosphatase Troponin I High Sens B-Natriuretic Peptide Total Protein Albumin Lipase Vitamin B12 Not Rcvd Folate Not Rcvd Urine Color Urine Appearance Urine pH Ur Specific [place] Urine Protein Urine Glucose (UA) Urine Ketones Urine Blood Urine Nitrite Urine WBC (Auto) Stool Occult Blood Blood Type ABO Group Antibody Screen 05/06/20 05/06/20 05/06/20 10:59 15:55 16:26 WBC RBC Hgb Hct MCV MCH MCHC RDW RDW Coeff of Leighann Plt Count MPV Immature Gran % (Auto) Neut % (Auto) Lymph % (Auto) [place] % (Auto) Eos % (Auto) Baso % (Auto) Neut # (Auto) Lymph # (Auto) [place] # (Auto) Eos # (Auto) Baso # (Auto) Abs Immat Gran (auto) Absolute Lymphs (auto) Absolute Monos (auto) Absolute Eos (auto) Absolute Basos (auto) Absolute Nucleated RBC Nucleated RBC % (auto) Absolute Neutrophils PT INR APTT Sodium Potassium Chloride Carbon Dioxide Bicarbonate Anion Gap BUN Creatinine Estimated Creat Clear Estim Creat Clear Calc Estimated GFR Est GFR (Non-Af Amer) POC Glucose 266 H 167 H 138 H Random Glucose Fasting Glucose Calcium Magnesium Iron TIBC Iron Saturation Ferritin Total Bilirubin Direct Bilirubin AST ALT Alkaline Phosphatase Troponin I High Sens B-Natriuretic Peptide Total Protein Albumin Lipase Vitamin B12 Folate Urine Color Urine Appearance Urine pH Ur Specific [place] Urine Protein Urine Glucose (UA) Urine Ketones Urine Blood Urine Nitrite Urine WBC (Auto) Stool Occult Blood Blood Type ABO Group Antibody Screen 05/06/20 05/07/20 05/07/20 21:48 07:20 11:26 WBC RBC Hgb Hct MCV MCH MCHC RDW RDW Coeff of Leighann Plt Count MPV Immature Gran % (Auto) Neut % (Auto) Lymph % (Auto) [place] % (Auto) Eos % (Auto) Baso % (Auto) Neut # (Auto) Lymph # (Auto) [place] # (Auto) Eos # (Auto) Baso # (Auto) Abs Immat Gran (auto) Absolute Lymphs (auto) Absolute Monos (auto) Absolute Eos (auto) Absolute Basos (auto) Absolute Nucleated RBC Nucleated RBC % (auto) Absolute Neutrophils PT INR APTT Sodium Potassium Chloride Carbon Dioxide Bicarbonate Anion Gap BUN Creatinine Estimated Creat Clear Estim Creat Clear Calc Estimated GFR Est GFR (Non-Af Amer) POC Glucose 146 H 169 H 269 H Random Glucose Fasting Glucose Calcium Magnesium Iron TIBC Iron Saturation Ferritin Total Bilirubin Direct Bilirubin AST ALT Alkaline Phosphatase Troponin I High Sens B-Natriuretic Peptide Total Protein Albumin Lipase Vitamin B12 Folate Urine Color Urine Appearance Urine pH Ur Specific [place] Urine Protein Urine Glucose (UA) Urine Ketones Urine Blood Urine Nitrite Urine WBC (Auto) Stool Occult Blood Blood Type ABO Group Antibody Screen 05/07/20 05/07/20 05/07/20 12:29 16:41 21:14 WBC 8.8 RBC 3.65 L Hgb 10.5 L Hct 33.4 L MCV 91.5 MCH 28.8 MCHC 31.4 RDW 14.3 RDW Coeff of Leighann Plt Count 388 MPV 9.2 L Immature Gran % (Auto) Neut % (Auto) Lymph % (Auto) [place] % (Auto) Eos % (Auto) Baso % (Auto) Neut # (Auto) Lymph # (Auto) [place] # (Auto) Eos # (Auto) Baso # (Auto) Abs Immat Gran (auto) Absolute Lymphs (auto) Absolute Monos (auto) Absolute Eos (auto) Absolute Basos (auto) Absolute Nucleated RBC 0.000 Nucleated RBC % (auto) 0.0 Absolute Neutrophils PT INR APTT Sodium Potassium Chloride Carbon Dioxide Bicarbonate Anion Gap BUN Creatinine Estimated Creat Clear Estim Creat Clear Calc Estimated GFR Est GFR (Non-Af Amer) POC Glucose 145 H 188 H Random Glucose Fasting Glucose Calcium Magnesium Iron TIBC Iron Saturation Ferritin Total Bilirubin Direct Bilirubin AST ALT Alkaline Phosphatase Troponin I High Sens B-Natriuretic Peptide Total Protein Albumin Lipase Vitamin B12 Folate Urine Color Urine Appearance Urine pH Ur Specific [place] Urine Protein Urine Glucose (UA) Urine Ketones Urine Blood Urine Nitrite Urine WBC (Auto) Stool Occult Blood Blood Type ABO Group Antibody Screen 05/08/20 05/08/20 05/08/20 07:54 11:48 17:07 WBC RBC Hgb Hct MCV MCH MCHC RDW RDW Coeff of Leighann Plt Count MPV Immature Gran % (Auto) Neut % (Auto) Lymph % (Auto) [place] % (Auto) Eos % (Auto) Baso % (Auto) Neut # (Auto) Lymph # (Auto) [place] # (Auto) Eos # (Auto) Baso # (Auto) Abs Immat Gran (auto) Absolute Lymphs (auto) Absolute Monos (auto) Absolute Eos (auto) Absolute Basos (auto) Absolute Nucleated RBC Nucleated RBC % (auto) Absolute Neutrophils PT INR APTT Sodium Potassium Chloride Carbon Dioxide Bicarbonate Anion Gap BUN Creatinine Estimated Creat Clear Estim Creat Clear Calc Estimated GFR Est GFR (Non-Af Amer) POC Glucose 158 H 216 H 163 H Random Glucose Fasting Glucose Calcium Magnesium Iron TIBC Iron Saturation Ferritin Total Bilirubin Direct Bilirubin AST ALT Alkaline Phosphatase Troponin I High Sens B-Natriuretic Peptide Total Protein Albumin Lipase Vitamin B12 Folate Urine Color Urine Appearance Urine pH Ur Specific [place] Urine Protein Urine Glucose (UA) Urine Ketones Urine Blood Urine Nitrite Urine WBC (Auto) Stool Occult Blood Blood Type ABO Group Antibody Screen 05/08/20 05/09/20 05/09/20 21:20 06:27 06:27 WBC 6.9 RBC 3.56 L Hgb 10.2 L Hct 32.7 L MCV 91.9 MCH 28.7 MCHC 31.2 RDW 14.4 RDW Coeff of Leighann Plt Count 379 MPV 9.4 Immature Gran % (Auto) 0.4 Neut % (Auto) 59.6 Lymph % (Auto) 28.3 [place] % (Auto) 8.8 Eos % (Auto) 2.6 Baso % (Auto) 0.3 Neut # (Auto) 4.1 Lymph # (Auto) 2.0 [place] # (Auto) 0.6 Eos # (Auto) 0.2 Baso # (Auto) 0.0 Abs Immat Gran (auto) 0.03 Absolute Lymphs (auto) Absolute Monos (auto) Absolute Eos (auto) Absolute Basos (auto) Absolute Nucleated RBC 0.000 Nucleated RBC % (auto) 0.0 Absolute Neutrophils PT INR APTT Sodium 141 Potassium 4.0 Chloride 101 Carbon Dioxide 32 H Bicarbonate Anion Gap 12 BUN 17 H D Creatinine 0.97 Estimated Creat Clear Estim Creat Clear Calc 70.1 Estimated GFR > 60 Est GFR (Non-Af Amer) POC Glucose 157 H Random Glucose 132 H Fasting Glucose Calcium 8.7 Magnesium Iron TIBC Iron Saturation Ferritin Total Bilirubin Direct Bilirubin AST ALT Alkaline Phosphatase Troponin I High Sens B-Natriuretic Peptide Total Protein Albumin Lipase Vitamin B12 Folate Urine Color Urine Appearance Urine pH Ur Specific [place] Urine Protein Urine Glucose (UA) Urine Ketones Urine Blood Urine Nitrite Urine WBC (Auto) Stool Occult Blood Blood Type ABO Group Antibody Screen 05/09/20 05/09/20 05/09/20 06:27 07:29 11:25 WBC RBC Hgb Hct MCV MCH MCHC RDW RDW Coeff of Leighann Plt Count MPV Immature Gran % (Auto) Neut % (Auto) Lymph % (Auto) [place] % (Auto) Eos % (Auto) Baso % (Auto) Neut # (Auto) Lymph # (Auto) [place] # (Auto) Eos # (Auto) Baso # (Auto) Abs Immat Gran (auto) Absolute Lymphs (auto) Absolute Monos (auto) Absolute Eos (auto) Absolute Basos (auto) Absolute Nucleated RBC Nucleated RBC % (auto) Absolute Neutrophils PT INR APTT Sodium Potassium Chloride Carbon Dioxide Bicarbonate Anion Gap BUN Creatinine Estimated Creat Clear Estim Creat Clear Calc Estimated GFR Est GFR (Non-Af Amer) POC Glucose 127 H 258 H Random Glucose Fasting Glucose Calcium Magnesium Iron TIBC Iron Saturation Ferritin Total Bilirubin Direct Bilirubin AST ALT Alkaline Phosphatase Troponin I High Sens B-Natriuretic Peptide 217 H Total Protein Albumin Lipase Vitamin B12 Folate Urine Color Urine Appearance Urine pH Ur Specific [place] Urine Protein Urine Glucose (UA) Urine Ketones Urine Blood Urine Nitrite Urine WBC (Auto) Stool Occult Blood Blood Type ABO Group Antibody Screen 05/09/20 05/09/20 05/10/20 16:46 21:50 08:30 WBC RBC Hgb Hct MCV MCH MCHC RDW RDW Coeff of Leighann Plt Count MPV Immature Gran % (Auto) Neut % (Auto) Lymph % (Auto) [place] % (Auto) Eos % (Auto) Baso % (Auto) Neut # (Auto) Lymph # (Auto) [place] # (Auto) Eos # (Auto) Baso # (Auto) Abs Immat Gran (auto) Absolute Lymphs (auto) Absolute Monos (auto) Absolute Eos (auto) Absolute Basos (auto) Absolute Nucleated RBC Nucleated RBC % (auto) Absolute Neutrophils PT INR APTT Sodium Potassium Chloride Carbon Dioxide Bicarbonate Anion Gap BUN Creatinine Estimated Creat Clear Estim Creat Clear Calc Estimated GFR Est GFR (Non-Af Amer) POC Glucose 133 H 129 H 164 H Random Glucose Fasting Glucose Calcium Magnesium Iron TIBC Iron Saturation Ferritin Total Bilirubin Direct Bilirubin AST ALT Alkaline Phosphatase Troponin I High Sens B-Natriuretic Peptide Total Protein Albumin Lipase Vitamin B12 Folate Urine Color Urine Appearance Urine pH Ur Specific [place] Urine Protein Urine Glucose (UA) Urine Ketones Urine Blood Urine Nitrite Urine WBC (Auto) Stool Occult Blood Blood Type ABO Group Antibody Screen 05/10/20 05/10/20 11:13 13:49 WBC RBC Hgb Hct MCV MCH MCHC RDW RDW Coeff of Leighann Plt Count MPV Immature Gran % (Auto) Neut % (Auto) Lymph % (Auto) [place] % (Auto) Eos % (Auto) Baso % (Auto) Neut # (Auto) Lymph # (Auto) [place] # (Auto) Eos # (Auto) Baso # (Auto) Abs Immat Gran (auto) Absolute Lymphs (auto) Absolute Monos (auto) Absolute Eos (auto) Absolute Basos (auto) Absolute Nucleated RBC Nucleated RBC % (auto) Absolute Neutrophils PT INR APTT Sodium Potassium Chloride Carbon Dioxide Bicarbonate Anion Gap BUN Creatinine Estimated Creat Clear Estim Creat Clear Calc Estimated GFR Est GFR (Non-Af Amer) POC Glucose 155 H 142 H Random Glucose Fasting Glucose Calcium Magnesium Iron TIBC Iron Saturation Ferritin Total Bilirubin Direct Bilirubin AST ALT Alkaline Phosphatase Troponin I High Sens B-Natriuretic Peptide Total Protein Albumin Lipase Vitamin B12 Folate Urine Color Urine Appearance Urine pH Ur Specific [place] Urine Protein Urine Glucose (UA) Urine Ketones Urine Blood Urine Nitrite Urine WBC (Auto) Stool Occult Blood Blood Type ABO Group Antibody Screen Airway Mallampati Class: IV (Known difficult airway ) TM Dist: >3cm Neck ROM: Full Partial: Lower Heart: RRR Lungs: slight wheezes BL s/P albuterol treatment Assessment and Plan Assessment Anesthesia Assessment: Anesthesia Plan Discussed and Consent Obtained Final Anesthetic Review NPO: Yes ASA Class: III Final Preanesthetic Review: No Changes in Pt Med Stat, Meds & Allergies Reviewed, Consent Obtained/Reviewed and Med/Surg/Anes Hx Reviewed Patient Risk: Intermediate Procedure Risk: Low Anesthetic Plan Anesthetic Plan: MAC: Disposition: Standard PACU
--- NOTE | 2020-05-10 15:50 | MHC.CM.PN ---
Second IMM delivered verbally today. DC plan continues to be home with daughter
--- NOTE | 2020-05-10 16:37 | PM.OP ---
Brief Operative Note Date of procedure: 05/10/20 Pre-op diagnosis: Anemia, Heme + stool
--- NOTE | 2020-05-10 16:39 | PM.OP ---
Brief Operative Note Date of procedure: 05/10/20 Pre-op diagnosis: Anemia, Heme + Post-op diagnosis: other (Hiatal hernia, Colon polyps) Procedure: EGD, Colonoscopy to cecum and TI with snare polypectomy Anesthesia: MAC Surgeon: Christopher Akhtar Pathology: other (A. Ascending colon polyp B. Polyp at 30cm) Condition: stable Disposition: PACU
--- NOTE | 2020-05-10 16:42 | PM.EVENT ---
Event Note Event Note: GI-Full note dictated EGD Findings: 1. Hiatal hernia, otherwise WNL Colonoscopy Findings: 1. Approx 6-8mm polyps in Ascending colon and at 30cm snared and recovered 2. Sigmoid diverticulosis 3. Internal hemorrhoids Rec: Advance diet, start Iron supplement, po PPI, F/U CBC. Hold all blood thinners x 1 week. If anemia remains problematic as an outpatient he may need a small bowel video capsule study. D/W his daughter, Elsa. Thanks
[2020-05-10 17:38] LABS: Glucose, Whole Blood 125 mg/dL (60-115)
[2020-05-10 20:45] LABS: Glucose, Whole Blood 185 mg/dL (60-115)
--- NOTE | 2020-05-10 20:56 | OP_ITS ---
SURGEON: Christopher Akhtar MD INDICATIONS: The patient presents for evaluation of anemia and heme-positive stool. Full consent has been obtained from him for this, including risks of bleeding and perforation. PREOPERATIVE DIAGNOSIS: POSTOPERATIVE DIAGNOSIS: PROCEDURE PERFORMED: Esophagogastroduodenoscopy, and colonoscopy to cecum and terminal ileum with snare polypectomy. ESTIMATED BLOOD LOSS: COMPLICATIONS: ANESTHESIA: Monitored anesthesia care. ASSISTANTS: SPECIMENS: PREOPERATIVE DIAGNOSES: Anemia and heme-positive stool. POSTOPERATIVE DIAGNOSES: Anemia and heme-positive stool, hiatal hernia, colon polyps, diverticulosis and internal hemorrhoids. DESCRIPTION OF PROCEDURE: The patient was placed in the left lateral decubitus position. The Olympus video gastroscope was passed in the posterior oropharynx and upper esophagus under direct vision. The scope was passed slowly into the distal esophagus. The gastroesophageal junction appeared normal at 35 cm. There was no sign of any esophagitis nor mass. The scope was entered into the stomach. There was a small hiatal hernia. The scope was advanced to pylorus and duodenum cannulated the descending portion. The duodenum including the bulb appeared normal without mass or ulceration. The scope was withdrawn back in the stomach. The gastric antrum and body appeared normal with good peristalsis. Scope was retroflexed visualizing the proximal stomach carefully which appeared normal, without any sign of mass or ulceration. The scope was straightened out and withdrawn back into the esophagus. The esophageal mucosa appeared normal. The scope was withdrawn from the patient. He was turned around for colonoscopy. The digital rectal exam revealed no abnormalities. The Olympus video pediatric colonoscope was entered into the rectum and advanced easily to the cecum. Once in the cecum, I did identify normal-appearing cecal pouch with appendiceal orifice and a normal-appearing ileocecal valve. The terminal ileum was cannulated and appeared normal. The scope was withdrawn back in the colon. There was transillumination of light deep in the right lower quadrant. The entire cecum and ileocecal valve appeared normal. The scope was slowly withdrawn assessing all mucosal surfaces carefully. For the most part, preparation was very good, although there was some small areas of a liquid stool, which was irrigated and suctioned away as best as possible. In the ascending colon and at 30 cm, were approximately 6 to 8 mm polyps, which were each snared and recovered by suction. The polypectomy sites appeared clean, without any sign of residual polyp nor bleeding. I did not visualize any other polyps, colitis, nor angiodysplasia. There was a moderate amount of sigmoid diverticulosis. In the rectum, scope was retroflexed visualizing small internal hemorrhoids, but no other pathology. The rectal mucosa appeared normal. The scope was straightened out and withdrawn from the patient. He tolerated both procedures well and was returned to the recovery area in stable condition. IMPRESSION: 1. Colon polyps, status post snare polypectomy. 2. Diverticulosis. 3. Small internal hemorrhoids. 4. Hiatal hernia. PLAN: The results of the pathology will be checked. Given these minimal findings and his age, I do not think he would need any further screening colonoscopies. I would recommend that he not use any aspirin, NSAIDs, nor any other blood thinners for at least 1 week. He should start an iron supplement in regard to the anemia. He will startva PPI orally as well. He can have followup blood counts as an outpatient. If the significant anemia persists and/or worsens, he may need further evaluation with a small bowel video capsule study. Hopefully, things will improve with iron supplementation, use of a PPI, and avoidance of all aspirin and NSAIDs. He had been on Eliquis as an outpatient and I think this could be restarted within a week or two. This has been discussed with his daughter, Elsa. MD MICHELE Phipps/CATHERINE / [phone] GRACIA
[2020-05-10] MEDS: Insulin Lispro 100 UNIT/ML 3 ML VIAL SUBCUT (21:44)
[2020-05-10] MEDS: HYDROcodone Bit/Acetam 5/325 TABLET 1 TAB PO (21:47)
[2020-05-10] MEDS: Latanoprost 0.005 % Ophth Sol 2.5 ML DROPS 1 DROP EYE-RIGHT (23:32)
[2020-05-11] VITALS (11 sets, daily range): BP systolic 101–163; BP diastolic 67–84; PULSE 66–86; RESP 18–20; TEMP 35.9–37; O2SAT 95–98; BMI 37.8
[2020-05-11] MEDS: Omeprazole 20 MG CAPSULE.DR PO (06:15)
[2020-05-11] MEDS: Omeprazole 40 MG CAPSULE.DR PO (06:15)
[2020-05-11 06:34] LABS: MANUAL DIFF FLAG NO
--- NOTE | 2020-05-11 06:37 | PC.NURSE ---
Partial denture handed to Cleo Fox RN, Nursing Human Anatomy Teacher.
[2020-05-11 06:48] LABS: Basophils Percent Auto 0.2 % (0-2); Eosinophils Absolute Auto 0.2 X10*3/uL (0.0-0.4); Eosinophils Percent Auto 2.8 % (0-4); Hematocrit 31.4 % (42-52); Hemoglobin 9.6 g/dl (14.0-18.0); Imm Gran Abs Auto 0.01 X10*3/uL (0.00-0.03); Imm Gran Pct Auto 0.2 % (0.0-0.4); Lymphocytes Absolute Auto 1.5 X10*3/uL (1.2-4.9); Lymphocytes Percent Auto 25.2 % (20-40); Mean Corpuscular HGB Conc 30.6 g/dl (31.0-36.0); Mean Corpuscular Hemoglobin 28.4 pg (27.0-33.0); Mean Corpuscular Volume 92.9 fL (80-98); Mean Platelet Volume 9.6 fL (9.4-12.4); Monocytes Absolute Auto 0.6 X10*3/uL (0.1-1.2); Monocytes Percent Auto 9.8 % (2-11); Neutrophils Absolute Auto 3.6 X10*3/uL (2.0-8.3); Neutrophils Percent Auto 61.8 % (45-73); Platelet Count 340 X10*3/uL (160-400); Red Blood Count 3.38 X10*6/uL (4.60-5.80); White Blood Count 5.8 X10*3/uL (4.8-10.8)
[2020-05-11 07:27] LABS: Anion Gap 12 (12-20); Blood Urea Nitrogen 17 mg/dL (9-16); Calcium 8.6 mg/dL (8.4-10.2); Carbon Dioxide 31 mmol/L (22-29); Chloride 104 mmol/L (96-108); Creatinine Clr Calc Pharmacy 61.1; Estimated Glomerular Filt Rate > 60; Glucose Fasting 191 mg/dL (60-99); Potassium 4.3 mmol/l (3.3-5.1); Sodium 143 mmol/L (135-145)
[2020-05-11 07:47] LABS: Glucose, Whole Blood 151 mg/dL (60-115)
[2020-05-11] MEDS: Ferrous Sulfate 324 MG TABLET.DR PO ×2 (09:06→17:05)
[2020-05-11] MEDS: Furosemide 40 MG/4 ML SOLUTION PO (09:06)
[2020-05-11] MEDS: 0.9 % Sodium Chloride Flush 3 ML SYRINGE 2 ML IVFLUSH ×3 (09:08→23:53)
[2020-05-11] MEDS: carvediloL 6.25 MG TABLET PO ×2 (09:09→21:51)
[2020-05-11] MEDS: lisinopriL 10 MG TABLET PO (09:10)
[2020-05-11] MEDS: Albuterol Sulfate 90 MCG 8 GM INHALER 2 PUFF INHALE ×2 (09:20→19:13)
[2020-05-11 11:33] LABS: Glucose, Whole Blood 272 mg/dL (60-115)
[2020-05-11] MEDS: Insulin Lispro 100 UNIT/ML 3 ML VIAL SUBCUT (12:47)
[2020-05-11] MEDS: Acetaminophen 325 MG TABLET 650 MG PO ×2 (12:50→21:54)
--- NOTE | 2020-05-11 16:19 | HO.PM.IMPN ---
Subjective Subjective Date of Service: 05/11/20 Interval History: patient admitted for shortness of breath and diagnosed to have congestive heart failure and anemia patient feels better but tired this morning, no acute issues overnight is status post upper and lower endoscopy last evening, patient denies abdominal pain nausea vomiting or diarrhea. Review of Systems CIRCULATION ANALYST no headache, no dizziness. CVS no chest pain, no palpitation. Respiratory no cough, no sputum production , no shortness of breath. Skin no rash Physical Exam Vital Signs and I&O and Narrative: Vital Signs and I&O: Vital Signs Temp 98.3 F 05/11/20 15:26 Pulse 71 05/11/20 15:26 Resp 18 05/11/20 15:26 BP 143/80 H 05/11/20 15:26 Pulse Ox 98 05/11/20 15:26 Intake & Output 05/10/20 05/11/20 05/11/20 18:59 06:59 18:59 Intake Total 0 / 705.666 705.666 / 705.666 840 / 840 Output Total 800 / 1050 250 / 1050 Balance -800 / -344.334 455.666 / -344.334 840 / 840 Urine Output (Aver age ml/kg/hr) 0.63 0.20 0.20 Weight 106.36 kg Intake: Intake, Oral Gilsum unt 0 / 600 600 / 600 840 / 840 Intake, IV Amoun t 105.666 / 105.666 Lactated Ringe rs 1,000 ml In 1, 105.666 / 105.666 000 ml @ 20 ml s/hr IVCONT .Q24H [facility] Rx#:[id number] Output: Output, Urine Am ount 800 / 1050 250 / 1050 Other: NPO Yes Urine Urinal Urine Color Concentrated Body Mass Index 37.8 General sitting comfortably in no distress. Neck is supple no JVD. Lungs clear to auscultation diminished breath sounds right base no wheeze, no rhonchi noted, no change from yesterday. Gastrointestinal abdomen obese , soft nontender bowel sounds audible. Heart regular rate rhythm. Extremities no edema. Skin no rash, no pallor. Neurological examination patient awake alert no neuro deficit noted. Objective Data Current Medications Generic Name Dose Route Start Last Admin Trade Name Freq PRN Reason Stop Dose Admin Acetaminophen 650 mg 05/06/20 00:01 05/11/20 12:50 Acetaminophen 325 Mg Tablet PO 650 mg Q6H PRN Administration FEVER/PAIN.MILD (SCALE 1-3) Albuterol Sulfate 2 puff 05/06/20 00:01 05/11/20 09:20 Albuterol Sulfate 90 Mcg 8 Gm Inhaler INHALE 2 puff RQ4H PRN Administration RESPIRATORY DISTRESS Carvedilol 6.25 mg 05/06/20 09:00 05/11/20 09:09 Carvedilol 6.25 Mg Tablet PO 6.25 mg BID DAVID Administration Docusate Sodium 100 mg 05/06/20 00:01 05/07/20 08:16 Docusate Sodium 100 Mg Capsule PO 100 mg Q24H PRN Administration Constipation Ferrous Sulfate 324 mg 05/11/20 08:00 05/11/20 09:06 Ferrous Sulfate 324 Mg Tablet. PO 324 mg BIDWM DAVID Administration Furosemide 40 mg 05/09/20 09:15 05/11/20 09:06 Furosemide 40 Mg/4 Ml Solution PO 40 mg DAILY [facility] Administration Protocol Insulin Human Lispro 0 unit 05/06/20 07:30 05/11/20 12:47 Insulin Lispro 100 Unit/Ml 3 Ml Vial SUBCUT 6 unit QIDACHS [facility] Administration Protocol Latanoprost 1 drop 05/06/20 21:00 05/10/20 23:32 Latanoprost 0.005 % Ophth Danielle 2.5 Ml Drops EYE-RIGHT 1 drop BEDTIME DAVID Administration Lisinopril 10 mg 05/09/20 10:00 05/11/20 09:10 Lisinopril 10 Mg Tablet PO 10 mg DAILY [facility] Administration Protocol Omeprazole 20 mg 05/10/20 18:14 05/11/20 06:15 Omeprazole 20 Mg Capsule. PO 20 mg DAILY@0630 [facility] Administration Ondansetron HCl 4 mg 05/06/20 00:01 Ondansetron Hcl 4 Mg/2 Ml Vial IVPUSH Q8H PRN Nausea and Vomiting Ondansetron HCl 4 mg 05/10/20 14:27 Ondansetron Hcl 4 Mg/2 Ml Vial IVPUSH ONCE PRN Nausea and Vomiting Ondansetron HCl 4 mg 05/10/20 14:38 Ondansetron Hcl 4 Mg/2 Ml Vial IVPUSH ONCE PRN Nausea and Vomiting Potassium Chloride 10 meq 05/06/20 09:00 05/11/20 09:06 Potassium Chloride Er 10 Meq Capsule.Er PO 10 meq BID DAVID Administration Sodium Chloride 2 ml 05/06/20 08:00 05/11/20 09:08 0.9 % Sodium Chloride Flush 3 Ml Syringe IVFLUSH 2 ml QSHIFT DAVID Administration Labs CBC & Chem 7: 05/11/20 05:39 05/11/20 05:39 Labs: Laboratory Results - last 24 hr 05/10/20 05/10/20 05/11/20 17:31 20:42 05:39 MCV 92.9 MCH 28.4 MCHC 30.6 L RDW 15.0 Plt Count 340 MPV 9.6 Immature Gran % (Auto) 0.2 Neut % (Auto) 61.8 Lymph % (Auto) 25.2 [place] % (Auto) 9.8 Eos % (Auto) 2.8 Baso % (Auto) 0.2 Neut # (Auto) 3.6 Lymph # (Auto) 1.5 [place] # (Auto) 0.6 Eos # (Auto) 0.2 Baso # (Auto) 0.0 Abs Immat Gran (auto) 0.01 Absolute Nucleated RBC 0.000 Nucleated RBC % (auto) 0.0 Anion Gap Estim Creat Clear Calc Estimated GFR POC Glucose 125 H 185 H Fasting Glucose Calcium 05/11/20 05/11/20 05/11/20 05:39 07:44 11:28 MCV MCH MCHC RDW Plt Count MPV Immature Gran % (Auto) Neut % (Auto) Lymph % (Auto) [place] % (Auto) Eos % (Auto) Baso % (Auto) Neut # (Auto) Lymph # (Auto) [place] # (Auto) Eos # (Auto) Baso # (Auto) Abs Immat Gran (auto) Absolute Nucleated RBC Nucleated RBC % (auto) Anion Gap 12 Estim Creat Clear Calc 61.1 Estimated GFR > 60 POC Glucose 151 H 272 H Fasting Glucose 191 H D Calcium 8.6 Assessment and Plan (1) Symptomatic anemia: Status: Acute (2) Coronary artery disease: Status: Acute (3) Hypertension: Status: Acute (4) Diabetes mellitus type 2 in obese: Status: Acute (5) COPD (chronic obstructive pulmonary disease): Status: Acute (6) CHF exacerbation: Status: Acute (7) Normocytic anemia: Status: Acute Assessment and Plan: Symptomatic anemia. Patient presented with shortness of breath and weakness and noted to be anemic with heme-positive stool patient seen by home office representative and underwent upper endoscopy and colonoscopy upper endo showed hiatal hernia otherwise normal colonoscopy showed small polyp in ascending colon that was snared and recovered he also noted to have sigmoid diverticulosis and internal hemorrhoids patient in advance patient has been placed on iron supplement BP I GI recommend to hold blood thinness for 1 week and if anemia remains problematic then he will have outpatient small bowel video capsule study, will hold Eliquis upon discharge and recommend follow-up with primary care physician for need of continued anticoagulation. acute Diastolic congestive heart failure patient noted to have elevated BNP on admission with bilateral leg edema, patient treated with IV Lasix, with good response patient feeling significantly better no orthopnea, PND leg edema has resolved ,therefore patient placed back on by mouth Lasix 40 mg daily home dose. BNP trended down. History of COPD no acute exacerbation Will continue home inhalers and scheduled updraft twice daily. Hypertension blood pressure elevated today will give Coreg and lisinopril and follow BP closely Constipation resolved History of coronary artery disease continue Coreg no acute symptoms of chest pain. Insulin-dependent diabetes mellitus blood sugars continue insulin sliding scale, blood sugar is stable this a.m. status post prosthetic aortic valve replacement DVT prophylaxis on compression boots.
[2020-05-11 16:43] LABS: Glucose, Whole Blood 113 mg/dL (60-115)
[2020-05-11 21:40] LABS: Glucose, Whole Blood 141 mg/dL (60-115)
[2020-05-11] MEDS: Latanoprost 0.005 % Ophth Sol 2.5 ML DROPS 1 DROP EYE-RIGHT (21:50)
[2020-05-12 04:00] VITALS: BP 158/72; PULSE 90; RESP 20; TEMP 37; O2SAT 95
[2020-05-12 06:00] VITALS: BMI 38.9
[2020-05-12 07:53] VITALS: BP 163/82; PULSE 76; RESP 20; TEMP 36.5; O2SAT 95
[2020-05-12 07:55] LABS: Glucose, Whole Blood 145 mg/dL (60-115)
[2020-05-12] MEDS: Omeprazole 20 MG CAPSULE.DR PO (07:58)
[2020-05-12] MEDS: Furosemide 40 MG/4 ML SOLUTION PO (07:58)
[2020-05-12 07:59] VITALS: BP 163/82; PULSE 76
[2020-05-12] MEDS: carvediloL 6.25 MG TABLET PO (07:59)
[2020-05-12] MEDS: Ferrous Sulfate 324 MG TABLET.DR PO (08:04)
[2020-05-12 08:08] VITALS: BP 163/82; PULSE 76
[2020-05-12] MEDS: lisinopriL 10 MG TABLET PO (08:08)
[2020-05-12] MEDS: Albuterol Sulfate 90 MCG 8 GM INHALER 2 PUFF INHALE (08:16)
[2020-05-12] MEDS: 0.9 % Sodium Chloride Flush 3 ML SYRINGE 2 ML IVFLUSH (08:20)
[2020-05-12 09:00] VITALS: BMI 38.9
--- NOTE | 2020-05-12 10:08 | MHC.CM.PN ---
Per MD discussion, Patient will be medically cleared for dc to home today at noon, no services.Second IMM addressed with Patient.
[2020-05-12] MEDS: Lactulose 20 GM/30 ML SOLUTION PO (10:27)
--- NOTE | 2020-05-12 11:07 | MHC.CM.PN ---
MD would like Patient to have VNA at home. A referral was made to [facility] and they have been notified of today's dc.
--- NOTE | 2020-05-12 11:56 | P.DS_ITS ---
DS: Providers Provider Date of admission: 05/05/20 21:10 Primary care physician: Anthony Chang MD Consults: 05/06/20 14:37 Consult to Gastroenterology Routine Consulting Provider: Suhail Rm Reason for consultation: symptomatic anemia DS: Diagnosis Discharge Diagnosis (1) Symptomatic anemia: Status: Acute (2) Coronary artery disease: Status: Acute (3) Hypertension: Status: Acute (4) Diabetes mellitus type 2 in obese: Status: Acute (5) COPD (chronic obstructive pulmonary disease): Status: Acute (6) CHF exacerbation: Status: Acute (7) Normocytic anemia: Status: Acute DS: Summary Hospital Course Hospital Course: 79-year-old gentleman with past medical history of COPD hypertension diabetes coronary artery disease and heart failure status post prosthetic aortic valve replacement on Eliquis for CVA prophylaxis presented to [facility] due to multiple complaints of not feeling well for 1 week with dizziness lightheadedness associated with constipation and dark colored stool for past 3 days patient also complained of shortness of breath with exertion patient workup in the ER was suggestive of acute normocytic anemia, and CHF exacerbation. Symptomatic anemia. Patient presented with shortness of breath and weakness and noted to be anemic with heme-positive stool patient underwent upper and lower endoscopy by Dr. Akhtar upper endo showed hiatal hernia otherwise normal colonoscopy showed a small polyp in ascending colon that was snared and recovered patient was noted to have sigmoid diverticulosis and internal hemorrhoids, patient did not require blood transfusion his hematocrit is stable at 31.4 he has been started on iron supplement and Prilosec his Eliquis has been discontinued for 1 week and recommendation is to resume Eliquis only if the hematocrit is stable with no further dark-colored stools. Recommended patient to follow-up with PCP in 1 week time. Acute diastolic congestive heart failure exacerbation patient was noted to have elevated BN of PE with bilateral edema patient was treated with IV Lasix with good response leg edema, PND orthopnea has since resolved patient has been placed back on Lasix 40 mg and continued on potassium. History of COPD no acute exacerbation noted. Hypertension stable continue home medication Coreg and lisinopril. Chronic constipation patient is on multiple bowel regimen has been instructed to take prunes and high-fiber diet and continue MiraLax and stool softener Time Spent with Patient Time attestation: Total time spent providing and/or coordinating discharge services: Time spent: Greater than 30 minutes Physical Exam Vital Signs and I&O and Narrative: Vital Signs and I&O: Vital Signs Temp 97.7 F 05/12/20 07:53 Pulse 76 05/12/20 08:08 Resp 20 05/12/20 07:53 BP 163/82 H 05/12/20 08:08 Pulse Ox 95 05/12/20 07:53 Intake & Output 05/11/20 05/12/20 05/12/20 18:59 06:59 18:59 Intake Total 840 / 940 100 / 940 Output Total 900 / 900 Balance 840 / 40 -800 / 40 Urine Output (Aver age ml/kg/hr) 0.69 0.69 Weight 109.3 kg 109.3 kg Intake: Intake, Oral Iron Belt unt 840 / 940 100 / 940 Output: Output, Urine Am ount 900 / 900 Other: Meal Refused No NPO No Dinner % Eaten 75% Urine Bathroom Body Mass Index 38.9 General patient resting comfortably in no acute distress. Neck is supple no JVD. CVS regular rate rhythm, Respiratory lungs clear to auscultation, no respiratory distress, no wheeze, no rhonchi. Gastrointestinal abdomen soft, nontender, bowel sounds audible, no no guarding , no rigidity. Extremities no clubbing cyanosis or edema. Neuro nonfocal patient moving all 4 extremity speech clear. Skin no rash DS: Data Data Completed and Pending Completed studies during hospitalization [Text1]: Pending at discharge 05/10/20 15:56 Surgical [PTH] Routine Labs on day of discharge: Labs from last 24 hours 05/12/20 05/11/20 05/11/20 07:52 21:37 16:39 POC Glucose 145 H 141 H 113 Discharge Plan Discharge Patient Disposition: Home Health Service Referrals: [facility] [Outside] Anthony Chang MD [Primary Care Provider] - 1 Week (Please call and schedule a follow up appointment.) Discharge Medications: New lisinopril 10 mg Tablet 10 mg PO DAILY Qty: 30 RF: 0 omeprazole 20 mg Capsule,Delayed Release(Dr/Ec) 20 mg PO DAILY@0630 Qty: 30 RF: 0 ferrous sulfate 324 mg (65 mg iron) Tablet,Delayed Release (Dr/Ec) 324 mg PO BIDWM Qty: 60 RF: 0 Continued acetaminophen 500 mg Tablet 1,000 mg PO BID PRN (Reason: Pain (Scale Score 4-6)) RF: 0 albuterol sulfate [ProAir HFA] 90 mcg/actuation HFA aerosol inhaler 2 puff PO Q4H PRN (Reason: Respiratory Distress) RF: 0 albuterol sulfate 2.5 mg /3 mL (0.083 %) Solution For Nebulization 2.5 mg INHALATION Q4H PRN (Reason: Respiratory Distress) RF: 0 levobunolol 0.5 % drops 1 drp ophthalmic-Right BID RF: 0 furosemide 40 mg tablet 1 tab PO DAILY RF: 0 latanoprost 0.005 % drops 1 drp ophthalmic-Right BEDTIME RF: 0 metformin 500 mg tablet 1 tab PO BID RF: 0 carvedilol 6.25 mg tablet 1 tab PO BID RF: 0 hydrocodone-acetaminophen 5-325 mg tablet 1 tab PO Q8H PRN (Reason: Pain (Scale Score 4-6)) RF: 0 potassium chloride 10 mEq tablet extended release 1 tab PO BID RF: 0 simvastatin 20 mg tablet 1 tab PO BEDTIME RF: 0 docusate sodium [Stool Softener] 100 mg capsule 1 cap PO BID RF: 0 magnesium hydroxide [Milk of Magnesia] 400 mg/5 mL Suspension 30 ml PO BID PRN (Reason: Constipation) RF: 0 polyethylene glycol 3350 [Miralax] 17 gram Powder In Packet 17 g PO BEDTIME RF: 0 Held Eliquis 5 mg tablet 1 tab PO BID RF: 0 Hold Instructions: Resume on 05/19/20. resume Eliquis only after discussing with primary care physician and if hematocrit remains stable Discharge Orders: Discharge Order (Routine); Ordered 05/12/20 Ordered By: Giselle Colindres Diet: diabetic diet and low salt diet Activity on Discharge: As tolerated Visit Report Forms: Patient Portal Discharge page Care Plan Goals: as per discharge plan Health Concerns: as per discharge plan Plan of Treatment: outpatient follow-up with primary care physician in 1 week and discuss resumption of Eliquis, hold Eliquis for 1 week and resume only after discussing with primary care physician if no drop in hematocrit.
[2020-05-12 11:59] VITALS: BP 168/82; PULSE 74; RESP 20; TEMP 36.6; O2SAT 94
[2020-05-12] MEDS: Acetaminophen 325 MG TABLET 650 MG PO (12:09)
[2020-05-12 12:12] LABS: Glucose, Whole Blood 198 mg/dL (60-115)
== END 2020-05-12 12:48 | disposition home health service (06) | DRG 377 ==
PROVIDERS: Family Medicine; Internal Medicine; Admitting Provider Internal Medicine; Emergency Provider Internal Medicine; PCP Internal Medicine; Visit Provider Hospitalist
PROC: 0DBK8ZX Excision of Ascending Colon, Via Natural or Artificial Opening Endoscopic, Diagnostic (ICD-10-PCS; principal; 2020-05-10 15:10)
DX: K57.31 Diverticulosis of large intestine without perforation or abscess with bleeding (principal); I50.33 Acute on chronic diastolic (congestive) heart failure; I11.0 Hypertensive heart disease with heart failure; D64.9 Anemia, unspecified; E11.9 Type 2 diabetes mellitus without complications; I25.10 Atherosclerotic heart disease of native coronary artery without angina pectoris; K59.09 Other constipation; E66.9 Obesity, unspecified; K64.8 Other hemorrhoids; K44.9 Diaphragmatic hernia without obstruction or gangrene; Z95.2 Presence of prosthetic heart valve; Z68.38 Body mass index [BMI] 38.0-38.9, adult; Z79.84 Long term (current) use of oral hypoglycemic drugs; Z79.899 Other long term (current) drug therapy
CPT/HCPCS: 36415; 71045; 80048; 80051; 80076; 81003; 82272; 82565; 82607; 82728; 82746; 82947; 83540; 83550; 83690; 83735; 83880; 84484; 84520; 85025; 85027; 85610; 85730; 86850; 86900; 86901; 88305; 93306; 94640; 94664; 96360; 99285; J1940; Q9957

== ENCOUNTER → 2020-07-23 10:54 | Outpatient (BNVA) | payer MEDICARE, SELFPAY | PROVIDERS: PCP Internal Medicine; Visit Provider Orthopaedic Surgery | DX: M21.061 Valgus deformity, not elsewhere classified, right knee (principal); M17.11 Unilateral primary osteoarthritis, right knee | CPT/HCPCS: 99212 ==

== ENCOUNTER → 2020-10-13 10:29 | Outpatient (REF) | payer MEDICARE, SELFPAY ==
--- NOTE | 2020-10-13 10:30 | CA_ITS ---
Transthoracic Echocardiogram Patient (Last, First, Middle): Vishal Ford F Gender: Male Date of : 1940 Age: 80 Procedure Date: 10/13/2020 Procedure Type: Transthoracic Echocardiogram Location: OP Height: 152.4 cm Weight: 111.13 kg BSA: 2.03 m2 Heart Rate: bpm BP: 120 / 80 mmHg Facing Grinder: FRANK Referring MD: Anthony Chang MD Road Boss: Boris Samaniego MD Symptoms: CHF, AFIB, CAD Study Quality: Technically Difficult/contrast ECG Rhythm: Ventriculary paced rhythm Conclusions: - 1. Technically very limited study despite use of contrast 2. Mildly reduced LV systolic function with LVEF of 45-50% 3. Limited evaluation of cardiac valves with severe mitral calcification with normal cardiac valvular Dopplers 4. Normal calculated RV systolic pressure on this study Findings Procedure Information The patient receives contrast. Left Ventricle Normal left ventricular cavity size. There is normal left ventricular wall thickness. The left ventricular systolic function is mildly decreased. The visually estimated ejection fraction is between 45-50%. There is paradoxical septal motion consistent with a right ventricular pacemaker. Spectral Doppler is indicative of an impaired relaxation filling pattern. Right Ventricle The right ventricle was not well visualized. There is a pacemaker wire seen in the right ventricle. Atria The left atrium was not well visualized. Interatrial shunt cannot be excluded. The right atrium was not well visualized. A pacemaker wire is identified in the right atrium. Aortic Valve The aortic valve was not well visualized. There is no aortic valve stenosis. Patient reported prostatic aortic valve, however this is not well visualized. Flow velocities are within normal limits Mitral Valve The mitral valve was not well visualized. There is severe mitral annular calcification. There is trace mitral valve regurgitation. There is no mitral valve stenosis. Pulmonic Valve The pulmonic valve was not well visualized. Tricuspid Valve The tricuspid valve was not well visualized. The right ventricular systolic pressure is normal. The right ventricular systolic pressure is 20 mmHg. Great Vessels The aorta was not well visualized. The pulmonary artery was not well visualized. Venous The inferior vena cava was not well visualized. Pericardium/Pleural The pericardium was not well visualized. Prior Study Comparison No significant change compared to prior study dated: 05/06/2020. Patient reported prosthetic aortic valve, however this valve is not well visualized, flow velocities across the valve within normal limits. LV systolic function appears mildly depressed on this study, however this study is extremely limited. Measurements 2D Linear Measurements IVSd: 1.07 0.6-0.9/0.6-1.0 cm LVIDd: 3.83 3.9-5.3/4.2-5.9 cm LVIDd Index: 1.89 2.4-3.2/2.2-3.1 cm/m2 LVIDs: 3.01 2.0-3.6 cm LVPWd: 1.07 0.7-1.1 cm LA Diam: 4.10 2.7-3.8/3.0-4.0 cm LAIDs Index: 2.02 1.5-2.3 cm/m2 LV Mass: 162.86 67-162/88-224 g LV Mass Index: 80.23 43-95/49-115 g/m2 LVOT Diam: 2.00 3.0+(-)1.3 cm Mitral Valve MV Pk E: 0.75 MV PK A: 1.05 MV Decel Time: 148.00 E/A: 0.70 E'Lateral: 9.79 E'Medial: 6.42 E/E' Med: 11.60 E/E' Lat: 7.60 PHT: 43.00 MVA PHT: 5.12 Decel Garfield: 5.05 Aortic Valve AoV Pk Arun: 1.81 AoV Mn Arun: 1.23 AoV VTI: 0.34 AoV Pk Grad: 13.00 Aov Mn Grad: 7.00 GARFIELD Cont.VTI: 1.59 LVOT LVOT Pk Arun: 0.80 LVOT Mn Arun: 0.59 LVOT VTI: 0.17 LVOT Pk Grad: 3.00 LVOT Mn Grad: 2.00 LVOT Diam: 2.00 LVOT Area: 3.14 Diastolic Function MV Pk E: 0.75 MV Pk A: 1.05 E/A: 0.70 E'Medial: 6.42 E/E' Med: 11.60 E' Laterial: 9.79 E/E' Lat: 7.60 Tricuspid Valve TR Pk Arun: 2.09 TR Pk Grad: 17.00 RA Press: 3.00 RVSP: 20.00 Great Vessels Aorta Ao Arch: 2.90 Updated in Other Vendor System with Status of Final Boris Samaniego MD electronically signed on 10/14/2020 8:35:31 AM with status of Final
== END ==
LOC: HO.CARD 10:29
PROVIDERS: PCP Internal Medicine; Visit Provider Internal Medicine
DX: I25.10 Atherosclerotic heart disease of native coronary artery without angina pectoris (principal); I50.9 Heart failure, unspecified; I48.91 Unspecified atrial fibrillation
CPT/HCPCS: 93306; Q9957

== ENCOUNTER 2020-10-15 08:56 | Outpatient (REF) | payer MEDICARE, SELFPAY ==
--- NOTE | ~2020-10-15 | XR_ITS ---
EXAMINATION: XR RIGHT KNEE XR LIMITED LEFT KNEE CLINICAL INFORMATION: Pain unspecified. COMPARISON: X-rays of the right and left knee June 2019. TECHNIQUE: AP upright view of both knees. Additional patella and lateral view of the right knee FINDINGS: Right Knee: There is genu valgus. Lateral Compartment: Severe joint space narrowing with a [id number] appearance. Medial Compartment: Extensive chondrocalcinosis. Marginal osteophytes indicative of arthrosis. Patellofemoral Compartment: Marginal osteophytes indicative of arthrosis. Small joint effusion. Arterial calcification noted. Limited Upright Left Knee: Left total knee arthroplasty noted with components in usual position, unchanged compared to prior. XR/XR knee RT 2V IMPRESSION: Right Knee: Chondrocalcinosis. Advanced osteoarthritis. Small joint effusion. Limited Left Knee: Left total knee arthroplasty without change, intact.
--- NOTE | ~2020-10-15 | XR_ITS ---
EXAMINATION: XR RIGHT KNEE XR LIMITED LEFT KNEE CLINICAL INFORMATION: Pain unspecified. COMPARISON: X-rays of the right and left knee June 2019. TECHNIQUE: AP upright view of both knees. Additional patella and lateral view of the right knee FINDINGS: Right Knee: There is genu valgus. Lateral Compartment: Severe joint space narrowing with a [id number] appearance. Medial Compartment: Extensive chondrocalcinosis. Marginal osteophytes indicative of arthrosis. Patellofemoral Compartment: Marginal osteophytes indicative of arthrosis. Small joint effusion. Arterial calcification noted. Limited Upright Left Knee: Left total knee arthroplasty noted with components in usual position, unchanged compared to prior. XR/XR knee standing BI IMPRESSION: Right Knee: Chondrocalcinosis. Advanced osteoarthritis. Small joint effusion. Limited Left Knee: Left total knee arthroplasty without change, intact.
== END 2020-10-15 08:57 | disposition home or self-care (01) ==
LOC: HO.HOSX 08:56
PROVIDERS: Visit Provider Orthopaedic Surgery
DX: M21.061 Valgus deformity, not elsewhere classified, right knee (principal); M17.11 Unilateral primary osteoarthritis, right knee; I10 Essential (primary) hypertension; E11.69 Type 2 diabetes mellitus with other specified complication; E66.9 Obesity, unspecified; I25.10 Atherosclerotic heart disease of native coronary artery without angina pectoris; J44.9 Chronic obstructive pulmonary disease, unspecified; I50.9 Heart failure, unspecified; Z87.891 Personal history of nicotine dependence
CPT/HCPCS: 20610; 73560; 73565; 99212; J1100

== ENCOUNTER 2020-11-26 09:58 | Outpatient (REF) | payer MEDICARE, SELFPAY ==
[2020-11-26 14:03] LABS: MANUAL DIFF FLAG NO
[2020-11-26 14:10] LABS: Basophils Percent Auto 0.2 % (0-2); Eosinophils Absolute Auto 0.6 X10*3/uL (0.0-0.4); Eosinophils Percent Auto 7.3 % (0-4); Hematocrit 37.5 % (42-52); Hemoglobin 11.7 g/dl (14.0-18.0); Imm Gran Abs Auto 0.02 X10*3/uL (0.00-0.03); Imm Gran Pct Auto 0.2 % (0.0-0.4); Lymphocytes Absolute Auto 1.5 X10*3/uL (1.2-4.9); Lymphocytes Percent Auto 17.9 % (20-40); Mean Corpuscular HGB Conc 31.2 g/dl (31.0-36.0); Mean Corpuscular Hemoglobin 28.5 pg (27.0-33.0); Mean Corpuscular Volume 91.2 fL (80-98); Mean Platelet Volume 10.6 fL (9.4-12.4); Monocytes Absolute Auto 0.6 X10*3/uL (0.1-1.2); Monocytes Percent Auto 7.6 % (2-11); Neutrophils Absolute Auto 5.5 X10*3/uL (2.0-8.3); Neutrophils Percent Auto 66.8 % (45-73); Platelet Count 223 X10*3/uL (160-400); Red Blood Count 4.11 X10*6/uL (4.60-5.80); Red Cell Distribution Width 13.6 % (11.0-16.0); White Blood Count 8.2 X10*3/uL (4.8-10.8)
[2020-11-26 14:17] LABS: Estimated Average Glucose 169 mg/dL; Hemoglobin A1c % 7.5 %
[2020-11-26 14:25] LABS: Anion Gap 19 (12-20); Blood Urea Nitrogen 34 mg/dL (9-16); Calcium 9.4 mg/dL (8.4-10.2); Carbon Dioxide 28 mmol/L (22-29); Chloride 98 mmol/L (96-108); Estimated Glomerular Filt Rate 39; Glucose Random 234 mg/dL (60-115); Sodium 140 mmol/L (135-145)
== END 2020-11-26 09:59 | disposition home or self-care (01) ==
LOC: HO.WFDLDS 09:58
PROVIDERS: Visit Provider Orthopaedic Surgery
DX: Z01.812 Encounter for preprocedural laboratory examination (principal)
CPT/HCPCS: 36415; 80048; 83036; 85025

== ENCOUNTER 2020-12-13 11:00 | Outpatient (RCR) | payer MEDICARE, SELFPAY ==
--- NOTE | 2020-11-26 13:32 | MHC.PT.OD ---
[facility] [place] Office [place] Office [place] Office [address] Abby Dodson [address] [phone] F: [phone] F: [phone] F: [phone] F: [phone] Physical Therapy Daily Note Diagnosis: M17.11 Unilateral primary osteoarthritis, right knee, Unilateral primary OA R knee, signed by Dr. Eagle 11/11/20 Date of Surgery: Date of Evaluation: 11/18/20 Date of Treatment: 11/26/20 Treatments to Date: 2 Cancellations to Date: No Shows to Date: Authorized Visits: 1 Insurance End Date: Precautions/ Contraindications: Subjective: Pt reports he received his first Moderna Covid shot, scheduled to have second dose on~ December 17. Pt had pre-op labs drawn prior to visit today. Reports minimal R knee pain but states his ankles have been bothering him quite a bit 8-04/15. Pain Score and Location: Objective Flowsheet: Tests & Measures Reports has 10 steps to enter basement for laundry Currently receiving MOWS 5x/ week Lives with daughter who has poor mobility and uses a walker- states he is primary person who does laundry, grocery shopping, and self care at home, uses rollator walker. Concern for patient managing his knee at home post TKA- as he has limited support from family/friends available. Reports has 3 steps to enter home [employer] and 3 additional steps, then 4th step into home with rail. Pt lacks compliance with monitoring blood sugar reports ate three pieces of toast for breakfast, stated last night his blood sugar was 190s. Exercises Seated on [employer] bike x 5 minutes with feet being tied to pedals to increased R hip ER difficulty maintaining feet in pedals. Noted to stop several times due to feet coming out of bike straps- unable to stay in despite being tied in place. Able to complete grossly 5 minutes of pedaling without any secondary resistance. Isometric quad set x 5 sec hold x 2 sets 10R, elevated edge of bed for SAQ x 3 set 10R, AAROM heel slide x 10 sec hold x 2 sets 5R. Seated isometric hip adduction x 2 sets 10R. BP: 138/88 mmHg, Sp02 95% room air, HR 78 Pt noted to report ongoing chest pain/pressure in his chest, Its my COPD as well as presence of vertigo sx which he states are causing him to lose his balance. He was noted to pause during transitions of movement today in the clinic due to bouts of seated and standing instability. Screening limited for vertigo sx due to cervical surgery, no clearance from MD< and inability to obtain position to screen due to respiratory restraints. Pt states Dr. Chang is aware of his vertigo sx and he states he feels it is related to his medications. Sit<>stand with cues for pushing up from seated position, education to stand and stabilize his balance prior to trying to walk/move. Completed assessment/support for ambulating to car upon completion of therapy this date due to unsteadiness with use of walker. Pt noted to lose his balance on thresh-hold of sidewalk and again when walking down the sidewalk resulting in therapist CGA to prevent fall forward. Pt showed therapist how he navigates placing his rollator in the car. Pt poses as a fall risk in current state. Therapist is concerned how pt will manage himself and his care post TKA if going home after surgery - he may benefit from VNA care in addition to implement of home health aide. He is under the impression he will be going home with VNA post TKA, it unclear as to how he will be transported to and from therapy as it will be his R knee and he will not be able to drive. He states his daughter completes limited driving and is in poor health. He states currently he is also cutting his own lawn with use of his tractor; we discussed it may be a good idea for him to look into support for this following his knee surgery as he will be unable to do this himself for some time. Modalities Assessment: AAROM -10 to 105 degrees with increased R Hip ER. Concern for patient recovery and well-being at home with upcoming knee surgery due to complex medical history and report of limited support at home. He is forgetful and demonstrates safety concerns such as fall risk. He may benefit from increased care such as daily homecare nursing and home health aide supplemental if he does not go to rehab setting following his TKA. Pt is a R hand dominant, 80 y/o male, referred to PT for treatment of R TKA prehab referred to PT from Dr. Eagle following history of ongoing history of R knee OA with scheduled tentative surgery date for R TKA 12/21/20 (deemed moderate risk per medical record by chip crusher operator per medical record). Pt exhibits decreased functional mobility requiring numerous attempts to stand when in a seated position while in the office today. He exhibits impaired strength of core, hips, and knees. He is overweight and reports worse pain in my ankle than my knees. He exhibits limited ROM of the R knee. Pt exhibits complex PMH including history of pacemaker with aortic valve replacement surgery, COPD, DMII, HTN, CHF, L TKA, Neck surgery with bone graft from R hip, CHF, normocytic anemia, symptomatic anemia. He is retired and lives with his daughter in ranch home with several steps to enter. He stated his daughter is not in good health/mobility herself. He reports performing all activities of ADLS/IADLS himself. He completes grocery shopping and drives [place] I. He does verbalize difficulty getting in and out of the tub, does have a shower bench but does not currently use it. He reports not feeling well, upon arrival into PT office he informed the front office secretary he was feeling off and dizzy. Pt reports ongoing sx of vertigo which he stated began a few days ago (but stated has had this in the past). No nystagmus observed this date with functional mobility. Assessment of vitals from L UE 142/88 mmHg, HR 68 bpm, and Sp02 96% room air. He reports use of updraft machine daily. He reports forgetfulness and poses as a fall risk. Upon entrance into the clinic he demonstrated difficulty ambulating, was noted to exhibit lateral LOB when standing. I adjusted the height of his rollator walker two levels as he was noted to exhibit significant trunk lean fwd. He verbalized improvement with adjustment. I am recommending therapy twice to address his listed impairments and improve his safety/function. Pt exhibits good rehab potential but may benefit from a time frame of greater than four weeks to meet listed goals to prepare for R TKA due to complex medical history of current level of activity/status. PT Plan: 2x/week x 4 weeks- prehab tentative R TKA for 12/21/20 Short Term Goals: 1. Sit<>stand on first attempt. 2. Demonstrate good eccentric control with functional mobility. 3. AAROM R Knee 0 to 120 degrees. 4. Demonstrate carryover and prehab TKA- I HEP. Mobile Plant Operators Goals: 1. Demonstrate carryover of I HEP. 2. AROM R knee ROM 0-120 degrees. 3. SLR into flexion with good control. 4. Demonstrate safety with RW for functional mobility. 5. Negotiate an 8 inch step with good safety/insight. Electronically signed by: Geraldine Denton PT, DPT
--- NOTE | 2020-12-10 12:43 | MHC.PT.OD ---
[facility] [place] Office [place] [facility] [place] Office [address] Abby Dodson [address] [phone] F: [phone] F: [phone] F: [phone] F: [phone] Physical Therapy Daily Note Diagnosis: M17.11 Unilateral primary osteoarthritis, right knee, Unilateral primary OA R knee, signed by Dr. Eagle 11/11/20 Date of Surgery: Date of Evaluation: 11/18/20 Date of Treatment: 12/10/20 Treatments to Date: 3 Cancellations to Date: No Shows to Date: Authorized Visits: 1 Insurance End Date: Precautions/ Contraindications:history of fall/ fall risk DM HTN, hx cervical fusion pacemaker Subjective: Reports minimal R knee pain but states his L>R ankle are killing me. Pt has not been to therapy in the past 14 days stating he is tired all the time cancelled last week due to feeling ill. Scheduled for Moderna #12 on 12/17/20. Pain Score and Location: Objective Flowsheet: Tests & Measures Reports has 10 steps to enter basement for laundry Currently receiving MOWS 5x/ week Lives with daughter who has poor mobility and uses a walker- states he is primary person who does laundry, grocery shopping, and self care at home, uses rollator walker. Concern for patient managing his knee at home post TKA- as he has limited support from family/friends available. Reports has 3 steps to enter home [employer] and 3 additional steps, then 4th step into home with rail. Exercises Asked pt if was willing to ride bike and he stated he needed to use restroom- pt then stated he needed to leave prior to end of appointment in order to have work done on his vehicle. Seated gastroc/HS stretches reviewed in effort to ease L gastroc>R gastroc tightness> report of ankle pains reviewed verbally: Isometric quad set x 5 sec hold x 2 sets 10R, elevated edge of bed for SAQ x 3 set 10R, AAROM heel slide x 10 sec hold x 2 sets 5R. Seated isometric hip adduction x 2 sets 10R. BP: 132/78 mmHg, Sp02 95% room air, HR 82 He was noted to pause during transitions of movement today in the clinic due to bouts of seated and standing instability reporting ongoing vertigo not feeling right He stated he had a fall at home about three weeks ago, was able to get up off the floor on his own went to his knees and pulled himself up into standing using his nightstand. We reviewed floor recovery today, educated how to get up from the floor. Pt encouraged to research obtaining callbell/safety alarm for him. Screening limited for vertigo sx due to cervical surgery, no clearance from MD< and inability to obtain position to screen due to respiratory restraints. Pt states Dr. Chang is aware of his vertigo sx and he states he feels it is related to his medication gabapentin which he stated was prescribed a few months back. Pt noted to demonstrate significant difficulty with transitioning out of a chair. Floor recovery education Therapist demonstrated Lying on floor<>moving to kneeling> half kneeling>getting up Addressed pt questions/concerns Education in benefit of obtaining callbell safety alarm for home use in case history of fall Completed assesment/guarding during of ambulation out of the clinic office with car transfer onto ramp and into parking lot, grossly 200ft using rollator at CGA level due to slope on concrete walkway. Pt reports he is losing his balance more often and feels lightheaded when at rest and when walking. Vitals are stable today however his gait stability and safety at home is a concern. Pt reports has not been performing HEP which was issued not too much to be honest He verbalized carryover of LAQ, and ankle pumps, heel slides in sitting. He demonstrates gross knee flexion to 110 seated today, reports he feels his muscles in his knee. Modalities Assessment: AAROM -10 to 105 degrees with increased R Hip ER. Concern for patient recovery and well-being at home with upcoming knee surgery due to complex medical history and report of limited support at home. He is forgetful and demonstrates safety concerns such as fall risk. He may benefit from increased care such as daily homecare nursing and home health aide supplemental if he does not go to rehab setting following his TKA. He states he has friends who can help drive him to appts following his TKA surgery however he has demonstrated limited completion of PT thus far. He has significant challenges rising from a chair and reports new episodes of feeling dizzy which he states his PCP is aware of. He also reports increasing fatigue in recent weeks, limited participation today due to bathroom trip made during session and need to leave early due to vehicle work he had scheduled. Pt is a R hand dominant, 80 y/o male, referred to PT for treatment of R TKA prehab referred to PT from Dr. Eagle following history of ongoing history of R knee OA with scheduled tentative surgery date for R TKA 12/21/20 (deemed moderate risk per medical record by control officer manager per medical record). Pt exhibits decreased functional mobility requiring numerous attempts to stand when in a seated position while in the office today. He exhibits impaired strength of core, hips, and knees. He is overweight and reports worse pain in my ankle than my knees. He exhibits limited ROM of the R knee. Pt exhibits complex PMH including history of pacemaker with aortic valve replacement surgery, COPD, DMII, HTN, CHF, L TKA, Neck surgery with bone graft from R hip, CHF, normocytic anemia, symptomatic anemia. He is retired and lives with his daughter in ranch home with several steps to enter. He stated his daughter is not in good health/mobility herself. He reports performing all activities of ADLS/IADLS himself. He completes grocery shopping and drives [employer] [place]. He does verbalize difficulty getting in and out of the tub, does have a shower bench but does not currently use it. He reports not feeling well, upon arrival into PT office he informed the secretary office clerk he was feeling off and dizzy. Pt reports ongoing sx of vertigo which he stated began a few days ago (but stated has had this in the past). No nystagmus observed this date with functional mobility. Assessment of vitals at time of eval from L UE 142/88 mmHg, HR 68 bpm, and Sp02 96% room air. He reports use of updraft machine daily. He reports forgetfulness and poses as a fall risk. Upon entrance into the clinic he demonstrated difficulty ambulating, was noted to exhibit lateral LOB when standing. I adjusted the height of his rollator walker two levels as he was noted to exhibit significant trunk lean fwd. He verbalized improvement with adjustment. I am recommending therapy twice to address his listed impairments and improve his safety/function. Pt exhibits good rehab potential but may benefit from a time frame of greater than four weeks to meet listed goals to prepare for R TKA due to complex medical history of current level of activity/status. PT Plan: 2x/week x 4 weeks- prehab tentative R TKA for 12/21/20; tentatively has Moderna #2 covid vaccine on 12/17/20 Pt has attended 3 sessions since start of care on 11/18/20 (eval, and today). Short Term Goals: 1. Sit<>stand on first attempt. 2. Demonstrate good eccentric control with functional mobility. 3. AAROM R Knee 0 to 120 degrees. 4. Demonstrate carryover and prehab TKA- I HEP. Detention Goals: 1. Demonstrate carryover of I HEP. 2. AROM R knee ROM 0-120 degrees. 3. SLR into flexion with good control. 4. Demonstrate safety with RW for functional mobility. 5. Negotiate an 8 inch step with good safety/insight. Electronically signed by: Geraldine Denton, PT, DPT
== END 2021-01-14 12:45 | disposition other institution (70) ==
LOC: HO.PTWFD 11:00
PROVIDERS: Visit Provider Orthopaedic Surgery
DX: M17.11 Unilateral primary osteoarthritis, right knee (principal)
CPT/HCPCS: 97110; 97112; 97116; 97163; 97530; 97535

== ENCOUNTER → 2020-12-16 13:09 | Outpatient (BNVA) | payer MEDICARE, SELFPAY | PROVIDERS: PCP Internal Medicine; Visit Provider Physician Assistant | DX: Z01.818 Encounter for other preprocedural examination (principal); M17.11 Unilateral primary osteoarthritis, right knee | CPT/HCPCS: 99212 ==

== ENCOUNTER 2021-06-23 14:20 | Outpatient (REF) | payer MEDICARE, SELFPAY ==
--- NOTE | ~2021-06-23 | XR_ITS ---
EXAMINATION: XR CHEST CLINICAL INFORMATION: COPD. Clinical suspicion for pneumonia. COMPARISON: Chest radiographs 05/05/2020, 04/23/2020, 04/13/2020 TECHNIQUE: 2 views of the chest were obtained. FINDINGS: There is been prior median sternotomy with aortic valve replacement and bipolar pacemaker. Heart size normal. Vascularity normal. No vascular congestion, infiltrate, or effusion. The hilar and mediastinal contours are normal. There are degenerative changes thoracic spine. XR/XR chest 2V IMPRESSION: No acute intrathoracic disease.
== END 2021-06-23 14:21 | disposition home or self-care (01) ==
LOC: HO.HMGCX 14:20
PROVIDERS: PCP Internal Medicine; Visit Provider Internal Medicine
DX: J44.9 Chronic obstructive pulmonary disease, unspecified (principal)
CPT/HCPCS: 71046

== ENCOUNTER 2021-07-06 08:58 | Outpatient (RCR) | payer MEDICARE, SELFPAY | END 2021-08-23 07:35 | disposition home or self-care (01) | LOC: HO.PTWFD 08:58 | PROVIDERS: Visit Provider Orthopaedic Surgery | DX: M17.11 Unilateral primary osteoarthritis, right knee (principal) | CPT/HCPCS: 97110; 97162; 97530; 97535 ==

== ENCOUNTER 2021-10-10 16:05 | Outpatient (REF) | payer MEDICARE, SELFPAY ==
--- NOTE | ~2021-10-10 | XR_ITS ---
EXAMINATION: XR CHEST CLINICAL INFORMATION: This is an 81-year-old male with shortness of breath. COMPARISON: Comparison is made to the previous study dated 06/23/2021. TECHNIQUE: 2 views of the chest were obtained. FINDINGS: A dual lead left subclavian pacemaker is evident which appears unchanged. There is an aortic valve replacement again noted which appears unchanged. The pulmonary vascularity appears within normal limits. There is flattening of the diaphragms with increased aeration of the lung hanson which may represent COPD. There is blunting of the posterior sulci bilaterally. No acute pneumonitis is seen. Diffuse degenerative disc disease with associated bony changes are noted in the thoracic spine. XR/XR chest 2V IMPRESSION: 1 there is no evidence of pneumonia or congestive heart failure. No significant change is noted.
[2021-10-10 16:25] LABS: MANUAL DIFF FLAG NO
[2021-10-10 16:56] LABS: Basophils Percent Auto 0.2 % (0-2); Eosinophils Absolute Auto 0.2 X10*3/uL (0.0-0.4); Eosinophils Percent Auto 1.8 % (0-4); Hematocrit 36.2 % (42.0-52.0); Hemoglobin 11.1 g/dl (14.0-18.0); Imm Gran Abs Auto 0.04 X10*3/uL (0.00-0.03); Imm Gran Pct Auto 0.5 % (0.0-0.4); Lymphocytes Absolute Auto 1.6 X10*3/uL (1.2-4.9); Lymphocytes Percent Auto 17.5 % (20-40); Mean Corpuscular HGB Conc 30.7 g/dl (31.0-36.0); Mean Corpuscular Hemoglobin 27.8 pg (27.0-33.0); Mean Corpuscular Volume 90.7 fL (80.0-98.0); Mean Platelet Volume 9.9 fL (9.4-12.4); Monocytes Absolute Auto 0.7 X10*3/uL (0.1-1.2); Monocytes Percent Auto 7.9 % (2-11); Neutrophils Absolute Auto 6.4 x10*3/uL (2.0-8.3); Neutrophils Percent Auto 72.1 % (45-73); Platelet Count 304 X10*3/uL (160-400); Red Blood Count 3.99 X10*6/uL (4.60-5.80); Red Cell Distribution Width 14.2 % (11.0-16.0); White Blood Count 8.9 X10*3/uL (4.8-10.8)
[2021-10-10 17:09] LABS: Anion Gap 14 (12-20); Blood Urea Nitrogen 22 mg/dL (9-16); Calcium 9.7 mg/dL (8.4-10.2); Carbon Dioxide 27 mmol/L (22-29); Chloride 104 mmol/L (96-108); Estimated Glomerular Filt Rate 45; Glucose Random 132 mg/dL (60-115); Potassium 4.5 mmol/L (3.3-5.1); Sodium 140 mmol/L (135-145)
[2021-10-10 17:17] LABS: Troponin-I High Sensitivity 47.4 ng/L (<3.5-35.0)
== END 2021-10-10 16:06 | disposition home or self-care (01) ==
LOC: HO.LAB 16:05
PROVIDERS: PCP Internal Medicine; Visit Provider Family Medicine
DX: Z00.00 Encounter for general adult medical examination without abnormal findings (principal); R06.02 Shortness of breath; R42 Dizziness and giddiness
CPT/HCPCS: 36415; 71046; 80048; 84484; 85025

== ENCOUNTER 2021-10-11 10:33 | Emergency (ER) | payer MEDICARE, SELFPAY ==
[2021-10-11 10:41] VITALS: BP 184/78; PULSE 74; RESP 16; TEMP 36.2; O2SAT 97; BMI 40.7
--- NOTE | 2021-10-11 11:07 | ECG_ITS ---
Test Reason : dyspnea Blood Pressure : / mmHG Vent. Rate : 078 BPM Atrial Rate : 078 BPM P-R Int : 178 ms QRS Dur : 174 ms QT Int : 478 ms P-R-T Axes : 064 -70 082 degrees QTc Int : 544 ms Atrial-sensed ventricular-paced rhythm Abnormal ECG When compared with ECG of 05-MAY-2020 20:20, Vent. rate has increased BY 3 BPM Referred By: Nam Fraga Electronically Signed By:ROSINA SHERWOOD MD
--- NOTE | 2021-10-11 11:15 | ED.CHESTPAIN ---
HPI - Chest Pain General Chief Complaint: Dyspnea Stated Complaint: SOB/chest tightness Time Seen by Provider: 10/11/21 11:06 Source: patient and family Mode of arrival: ambulatory Limitations: no limitations History of Present Illness HPI narrative: 81-year-old male history of aortic valve replacement history of a heart attack COPD hypertension presents to the emergency department after seeing his primary care doctor. He was sent here due to an elevated troponin that was sent yesterday. Patient states he has not had chest pain at rest but when he ambulates he does have minor chest pain on left side. Patient denies any falls or injuries denies fevers chills or cough. MD complaint: chest pain and chest heaviness Related Data Home Medications Medication Instructions Recorded Confirmed acetaminophen 500 mg tablet 1,000 mg PO BID PRN 05/06/20 05/06/20 albuterol sulfate 2.5 mg INHALATION Q4H PRN 05/06/20 05/06/20 albuterol sulfate 90 mcg/actuation 2 puff PO Q4H PRN 05/06/20 05/06/20 aerosol inhaler (ProAir HFA) apixaban 5 mg tablet (Eliquis) 1 tab PO BID 05/06/20 05/06/20 carvedilol 6.25 mg tablet 1 tab PO BID 05/06/20 05/06/20 docusate sodium 100 mg capsule 1 cap PO BID 05/06/20 05/06/20 (Stool Softener) furosemide 40 mg tablet 1 tab PO DAILY 05/06/20 05/06/20 latanoprost 0.005 % eye drops 1 drp OPHTHALMIC-RIGHT BEDTIME 05/06/20 05/06/20 levobunolol 0.5 % eye drops 1 drp OPHTHALMIC-RIGHT BID 05/06/20 05/06/20 metformin 500 mg tablet 1 tab PO BID 05/06/20 05/06/20 polyethylene glycol 3350 17 gram 17 g PO BEDTIME 05/06/20 05/06/20 oral powder packet (Miralax) potassium chloride 10 mEq 1 tab PO BID 05/06/20 05/06/20 tablet,extended release simvastatin 20 mg tablet 1 tab PO BEDTIME 05/06/20 05/06/20 gabapentin 400 mg capsule 400 mg PO TID 10/15/20 Previous Rx's Medication Instructions Recorded ferrous sulfate 324 mg (65 mg 324 mg PO BIDWM #60 tab 05/12/20 iron) tablet,delayed release lisinopril 10 mg tablet 10 mg PO DAILY #30 tab 05/12/20 omeprazole 20 mg capsule,delayed 20 mg PO DAILY@0630 #30 cap 05/12/20 release Allergies Allergy/AdvReac Type Severity Reaction Status Date / Time No Known Allergies* Allergy NKA Uncoded 12/16/20 10:10 Review of Systems Review of Systems: Review of systems: General: Patient denies any fever chills recent illness or falls Musculoskeletal: Denies back pain or body aches or other injuries HEENT: denies headache, runny nose, ear pain Respiratory: denies shortness of breath, cough Cardiovascular: no chest pain or palpitations : denies dysuria, frequency Abdomen: no nausea vomiting denies abdominal pain Extremities: no swelling, no pain Skin: no diaphoresis Yes all other systems are reviewed and are negative PMFSH Past Medical History Medical History (Updated 10/11/21 @ 13:49 by Nam Fraga DO) Aortic stenosis Atrial fibrillation and flutter CHF exacerbation COPD (chronic obstructive pulmonary disease) Coronary artery disease Diabetes mellitus type 2 in obese DJD (degenerative joint disease) GERD (gastroesophageal reflux disease) Glaucoma History of cardiac pacemaker History of heart block Hx of angina pectoris Hx of congestive heart failure Hx of myocardial infarction Hyperlipidemia Hypertension Normocytic anemia Obesity On anticoagulant therapy Symptomatic anemia Surgical History History of nasal surgery History of neck surgery History of permanent cardiac pacemaker placement History of total left knee replacement Hx of aortic valve replacement Hx of colonoscopy Hx of esophagogastroduodenoscopy Social History Social History Second Hand Smoke Exposure: No Advance Directives: Yes Advance Directives on File: Yes Advance Directives Date on File: 05/13/20 service: No Current occupational status: retired Current occupation: Right Handed Physical Exam Vital Signs: Vital Signs: Last Vital Signs Temp 97.2 F 10/11/21 10:41 Pulse 70 10/11/21 13:03 Resp 19 10/11/21 13:03 BP 136/79 10/11/21 13:03 Pulse Ox 97 10/11/21 13:03 BMI result Body Mass Index 40.7 General: Well-appearing well-nourished in no signs of distress HEENT: Normocephalic atraumatic Neck: No signs of JVD, no masses no tenderness or lymphadenopathy Cardiovascular: Regular rate and rhythm Respiratory: Clear to auscultation bilaterally Abdomen: Soft nontender no masses rectal exam performed guia negative quality assurance assessor confirmed. Extremities: Normal pedal pulses no signs of edema Skin: Dry warm no rashes Back: No tenderness full ROM MDM - Chest Pain MDM Narrative Medical decision making narrative: Concern for unstable angina patient has very elevated troponin patient has no chest pain at this time will give patient nitro aspirin and fluids. Concern for ACS. Patient had a positron yesterday about previous Guerline that the trend is. 1347 recheck the patient's labs from yesterday BNP is only thing that has gone up he does not complain of shortness of breath he is satting 97% on room air chest x-ray is normal I do not feel this patient requires admission at this time patient feels comfortable going home. The chest pain was not responsive nitroglycerin he states only mild pain and is reproducible with palpation I do not think this is ACS at this time I will discharge home. Lab Data Attestation: I reviewed the patient's lab results. Result diagrams: 10/11/21 11:25 10/11/21 11:25 Labs: Lab Results 10/11/21 10/11/21 10/11/21 Range/Units 11:25 11:25 11:25 WBC 10.1 (4.8-10.8) X10*3/uL RBC 4.18 L (4.60-5.80) X10*6/uL Hgb 11.9 L (14.0-18.0) g/dl Hct 36.7 L (42.0-52.0) % MCV 87.8 (80.0-98.0) fL MCH 28.5 (27.0-33.0) pg MCHC 32.4 (31.0-36.0) g/dl RDW 14.3 (11.0-16.0) % Plt Count 320 (160-400) X10*3/uL MPV 10.1 (9.4-12.4) fL Immature Gran % (Auto) 0.3 (0.0-0.4) % Neut % (Auto) 77.3 H (45-73) % Lymph % (Auto) 14.1 L (20-40) % [place] % (Auto) 6.6 (2-11) % Eos % (Auto) 1.5 (0-4) % Baso % (Auto) 0.2 (0-2) % Lymph # (Auto) 1.4 (1.2-4.9) X10*3/uL [place] # (Auto) 0.7 (0.1-1.2) X10*3/uL Eos # (Auto) 0.2 (0.0-0.4) X10*3/uL Baso # (Auto) 0.0 (0.0-0.2) X10*3/uL Abs Immat Gran (auto) 0.03 (0.00-0.03) X10*3/uL Absolute Neuts (auto) 7.8 (2.0-8.3) x10*3/uL Absolute Nucleated RBC 0.000 (0.0-0.012) X10*3/uL Nucleated RBC % (auto) 0.0 (0.0-0.2) /100WBC Sodium 139 (135-145) mmol/L Potassium 4.5 (3.3-5.1) mmol/L Chloride 103 (96-108) mmol/L Carbon Dioxide 27 (22-29) mmol/L Anion Gap 14 (12-20) BUN 20 H (9-16) mg/dL Creatinine 1.47 H (0.5-1.4) mg/dL Estim Creat Clear Calc 45.3 Estimated GFR 46 Random Glucose 149 H (60-115) mg/dL Calcium 10.0 (8.4-10.2) mg/dL Total Bilirubin 0.6 (0.0-1.0) mg/dL Direct Bilirubin 0.2 (0.0-0.5) mg/dL AST 23 (5-37) U/L ALT 17 (0-40) U/L Alkaline Phosphatase 71 (39-117) U/L Troponin I High Sens Cancelled B-Natriuretic Peptide (<100) pg/mL Total Protein 7.2 (6.5-8.0) g/dL Albumin 4.5 (3.5-5.0) g/dL Lipase 21 (8-78) U/L COVID-19 (JACQUELINE) (Negative) COVID-19 Clin Com 10/11/21 10/11/21 Range/Units 11:25 11:25 WBC (4.8-10.8) X10*3/uL RBC (4.60-5.80) X10*6/uL Hgb (14.0-18.0) g/dl Hct (42.0-52.0) % MCV (80.0-98.0) fL MCH (27.0-33.0) pg MCHC (31.0-36.0) g/dl RDW (11.0-16.0) % Plt Count (160-400) X10*3/uL MPV (9.4-12.4) fL Immature Gran % (Auto) (0.0-0.4) % Neut % (Auto) (45-73) % Lymph % (Auto) (20-40) % [place] % (Auto) (2-11) % Eos % (Auto) (0-4) % Baso % (Auto) (0-2) % Lymph # (Auto) (1.2-4.9) X10*3/uL [place] # (Auto) (0.1-1.2) X10*3/uL Eos # (Auto) (0.0-0.4) X10*3/uL Baso # (Auto) (0.0-0.2) X10*3/uL Abs Immat Gran (auto) (0.00-0.03) X10*3/uL Absolute Neuts (auto) (2.0-8.3) x10*3/uL Absolute Nucleated RBC (0.0-0.012) X10*3/uL Nucleated RBC % (auto) (0.0-0.2) /100WBC Sodium (135-145) mmol/L Potassium (3.3-5.1) mmol/L Chloride (96-108) mmol/L Carbon Dioxide (22-29) mmol/L Anion Gap (12-20) BUN (9-16) mg/dL Creatinine (0.5-1.4) mg/dL Estim Creat Clear Calc Estimated GFR Random Glucose (60-115) mg/dL Calcium (8.4-10.2) mg/dL Total Bilirubin (0.0-1.0) mg/dL Direct Bilirubin (0.0-0.5) mg/dL AST (5-37) U/L ALT (0-40) U/L Alkaline Phosphatase (39-117) U/L Troponin I High Sens 46.9 H B-Natriuretic Peptide 874 H (<100) pg/mL Total Protein (6.5-8.0) g/dL Albumin (3.5-5.0) g/dL Lipase (8-78) U/L COVID-19 (JACQUELINE) Negative (Negative) COVID-19 Clin Com See Note ECG Data ECG #1: Attestation: I personally reviewed and interpreted this ECG as follows: ECG interpretation date: 10/11/21 ECG interpretation time: 12:32 Prior ECG tracings: not available for review Interpretation: RAte 78 read as atrial paced with LBBB Scores Heart Score History: -1- moderately suspicious ECG: -0- normal Age: -2- > or = 65 Risk factory: -2- 3 or more risk factors or treated atherosclerosis Troponin: -2- > or = 3x normal limit Score: 7 Risk: 50.1% Discharge Plan Discharge Clinical Impression: Hx of myocardial infarction, Elevated troponin Patient Disposition: Home, Self-Care Instructions: High Troponin Levels (ED) Additional Instructions: Your blood tests are improved from yesterday. If you have worsening shortness of breath or worsening chest pain please return to the ED. Prescriptions: No Action acetaminophen 500 mg Tablet 1,000 mg PO BID PRN (Reason: Pain (Scale Score 4-6)) 0RF albuterol sulfate [ProAir HFA] 90 mcg/actuation HFA aerosol inhaler 2 puff PO Q4H PRN (Reason: Respiratory Distress) 0RF albuterol sulfate 2.5 mg /3 mL (0.083 %) Solution For Nebulization 2.5 mg INHALATION Q4H PRN (Reason: Respiratory Distress) 0RF levobunolol 0.5 % drops 1 drp ophthalmic-Right BID 0RF furosemide 40 mg tablet 1 tab PO DAILY 0RF latanoprost 0.005 % drops 1 drp ophthalmic-Right BEDTIME 0RF metformin 500 mg tablet 1 tab PO BID 0RF carvedilol 6.25 mg tablet 1 tab PO BID 0RF potassium chloride 10 mEq tablet extended release 1 tab PO BID 0RF simvastatin 20 mg tablet 1 tab PO BEDTIME 0RF docusate sodium [Stool Softener] 100 mg capsule 1 cap PO BID 0RF Eliquis 5 mg tablet 1 tab PO BID 0RF Hold Instructions: Resume on 05/19/20. resume Eliquis only after discussing with primary care physician and if hematocrit remains stable polyethylene glycol 3350 [Miralax] 17 gram Powder In Packet 17 g PO BEDTIME 0RF lisinopril 10 mg Tablet 10 mg PO DAILY Qty: 30 0RF Protocol: Hold for SBP< HOLD for SBP < : 90 omeprazole 20 mg Capsule,Delayed Release(Dr/Ec) 20 mg PO DAILY@0630 Qty: 30 0RF ferrous sulfate 324 mg (65 mg iron) Tablet,Delayed Release (Dr/Ec) 324 mg PO BIDWM Qty: 60 0RF gabapentin 400 mg capsule 400 mg PO TID 0RF
[2021-10-11] MEDS: Aspirin 81 MG TAB.CHEW 324 MG PO (11:34)
[2021-10-11 11:36] VITALS: BP 146/84; PULSE 74
[2021-10-11] MEDS: Nitroglycerin 0.4 MG TAB.SUBL SUBLINGUAL (11:36)
[2021-10-11] MEDS: 0.9 % Sodium Chloride 1,000 ML 999 ML IV (11:36)
[2021-10-11 11:37] LABS: MANUAL DIFF FLAG NO
[2021-10-11 11:44] VITALS: BP 103/64; PULSE 80; RESP 19; O2SAT 95
[2021-10-11 11:52] LABS: Basophils Percent Auto 0.2 % (0-2); Eosinophils Absolute Auto 0.2 X10*3/uL (0.0-0.4); Eosinophils Percent Auto 1.5 % (0-4); Hematocrit 36.7 % (42.0-52.0); Hemoglobin 11.9 g/dl (14.0-18.0); Imm Gran Abs Auto 0.03 X10*3/uL (0.00-0.03); Imm Gran Pct Auto 0.3 % (0.0-0.4); Lymphocytes Absolute Auto 1.4 X10*3/uL (1.2-4.9); Lymphocytes Percent Auto 14.1 % (20-40); Mean Corpuscular HGB Conc 32.4 g/dl (31.0-36.0); Mean Corpuscular Hemoglobin 28.5 pg (27.0-33.0); Mean Corpuscular Volume 87.8 fL (80.0-98.0); Mean Platelet Volume 10.1 fL (9.4-12.4); Monocytes Absolute Auto 0.7 X10*3/uL (0.1-1.2); Monocytes Percent Auto 6.6 % (2-11); Neutrophils Absolute Auto 7.8 x10*3/uL (2.0-8.3); Neutrophils Percent Auto 77.3 % (45-73); Platelet Count 320 X10*3/uL (160-400); Red Blood Count 4.18 X10*6/uL (4.60-5.80); Red Cell Distribution Width 14.3 % (11.0-16.0); White Blood Count 10.1 X10*3/uL (4.8-10.8)
[2021-10-11 12:04] LABS: COVID-19 Test Negative (Negative)
[2021-10-11 12:07] LABS: Alanine Aminotransferase 17 U/L (0-40); Albumin Level 4.5 g/dL (3.5-5.0); Alkaline Phosphatase 71 U/L (39-117); Anion Gap 14 (12-20); Aspartate Amino Transferase 23 U/L (5-37); Bilirubin Direct 0.2 mg/dL (0.0-0.5); Bilirubin Total 0.6 mg/dL (0.0-1.0); Blood Urea Nitrogen 20 mg/dL (9-16); Carbon Dioxide 27 mmol/L (22-29); Chloride 103 mmol/L (96-108); Creatinine Clr Calc Pharmacy 45.3; Estimated Glomerular Filt Rate 46; Glucose Random 149 mg/dL (60-115); Lipase 21 U/L (8-78); Potassium 4.5 mmol/L (3.3-5.1); Sodium 139 mmol/L (135-145); Total Protein 7.2 g/dL (6.5-8.0)
[2021-10-11 12:09] LABS: B Type Natriuretic Peptide 874 pg/mL (<100)
[2021-10-11] MEDS: Furosemide 20 MG/2 ML VIAL IVPUSH (12:34)
[2021-10-11 13:03] VITALS: BP 136/79; PULSE 70; RESP 19; O2SAT 97
[2021-10-11 13:03] LABS: Troponin-I High Sensitivity 46.9 ng/L (<3.5-35.0)
--- NOTE | 2021-10-11 14:04 | ECG_ITS ---
Test Reason : CHEST PAIN Blood Pressure : / mmHG Vent. Rate : 069 BPM Atrial Rate : 069 BPM P-R Int : 160 ms QRS Dur : 168 ms QT Int : 478 ms P-R-T Axes : 028 -75 076 degrees QTc Int : 512 ms Atrial-sensed ventricular-paced rhythm Abnormal ECG When compared with ECG of 11-OCT-2021 11:42, Vent. rate has decreased BY 9 BPM Referred By: Nam Fraga Electronically Signed By:ROSINA SHERWOOD MD
--- NOTE | 2021-10-11 14:10 | PC.NURSE ---
pt states his l cp increased from 1 to a little under 2/10, anxious about leaving, dr brown aware and reapeat ekg and trop ordered and being done now
[2021-10-11 14:54] LABS: Troponin-I High Sensitivity 45.9 ng/L (<3.5-35.0)
[2021-10-11 15:36] VITALS: BP 155/80; PULSE 76; RESP 19; TEMP 37; O2SAT 98
--- NOTE | 2021-10-11 15:40 | PC.NURSE ---
Pt alert and oriented x4, calm and cooperative. Pt denies pain. Pt educated on dc by RN and MD, stated an understanding with daughter at bedside. IV removed. Vitals stable. pt assisted getting dressed and wheeled out to private car where daughter drove him home.
== END 2021-10-11 15:48 | disposition home or self-care (01) ==
PROVIDERS: Emergency Provider Student in an Organized Health Care Education/Training Program; PCP Internal Medicine
DX: R07.9 Chest pain, unspecified (principal); R77.8 Other specified abnormalities of plasma proteins; R06.02 Shortness of breath; I25.2 Old myocardial infarction; I48.91 Unspecified atrial fibrillation; E11.9 Type 2 diabetes mellitus without complications; I11.0 Hypertensive heart disease with heart failure; I50.9 Heart failure, unspecified; E78.5 Hyperlipidemia, unspecified; Z79.01 Long term (current) use of anticoagulants; Z20.822 Contact with and (suspected) exposure to COVID-19
CPT/HCPCS: 36415; 80048; 80076; 83690; 83880; 84484; 85025; 87635; 93005; 96361; 96374; 99284; J1940

== ENCOUNTER 2021-11-17 13:00 | Outpatient (RCR) | payer MEDICARE, SELFPAY | END 2021-11-23 08:22 | disposition home or self-care (01) | LOC: HO.PTWFD 13:00 | PROVIDERS: PCP Internal Medicine; Visit Provider Physician Assistant Medical | DX: Z96.651 Presence of right artificial knee joint (principal) | CPT/HCPCS: 97110; 97162; 97530; 97535 ==

== ENCOUNTER 2022-03-02 08:08 | Outpatient (REF) | payer MEDICARE, SELFPAY ==
[2022-03-02 11:44] LABS: MANUAL DIFF FLAG NO
[2022-03-02 11:50] LABS: Basophils Percent Auto 0.1 % (0-2); Eosinophils Absolute Auto 0.2 X10*3/uL (0.0-0.4); Eosinophils Percent Auto 1.7 % (0-4); Hematocrit 38.4 % (42.0-52.0); Hemoglobin 12.3 g/dl (14.0-18.0); Imm Gran Abs Auto 0.04 X10*3/uL (0.00-0.03); Imm Gran Pct Auto 0.5 % (0.0-0.4); Lymphocytes Absolute Auto 1.9 X10*3/uL (1.2-4.9); Lymphocytes Percent Auto 21.5 % (20-40); Mean Corpuscular Hemoglobin 28.8 pg (27.0-33.0); Mean Corpuscular Volume 89.9 fL (80.0-98.0); Mean Platelet Volume 10.8 fL (9.4-12.4); Monocytes Absolute Auto 0.6 X10*3/uL (0.1-1.2); Monocytes Percent Auto 6.6 % (2-11); Neutrophils Percent Auto 69.6 % (45-73); Platelet Count 241 X10*3/uL (160-400); Red Blood Count 4.27 X10*6/uL (4.60-5.80); White Blood Count 8.7 X10*3/uL (4.8-10.8)
[2022-03-02 12:08] LABS: Estimated Average Glucose 163 mg/dL; Hemoglobin A1c % 7.3 %
[2022-03-02 12:14] LABS: Alanine Aminotransferase 22 U/L (0-40); Albumin Level 4.1 g/dL (3.5-5.0); Alkaline Phosphatase 67 U/L (39-117); Anion Gap 15 (12-20); Aspartate Amino Transferase 23 U/L (5-37); Bilirubin Total 0.3 mg/dL (0.0-1.0); Blood Urea Nitrogen 34 mg/dL (9-16); Carbon Dioxide 26 mmol/L (22-29); Chloride 102 mmol/L (96-108); Estimated Glomerular Filt Rate 34; Glucose Fasting 165 mg/dL (60-99); Potassium 4.6 mmol/L (3.3-5.1); Sodium 138 mmol/L (135-145); Total Protein 6.5 g/dL (6.5-8.0)
== END 2022-03-02 08:09 | disposition home or self-care (01) ==
LOC: HO.WFDLDS 08:08
PROVIDERS: Visit Provider Internal Medicine
DX: E11.9 Type 2 diabetes mellitus without complications (principal); R53.83 Other fatigue
CPT/HCPCS: 36415; 80053; 83036; 85025

== ENCOUNTER 2022-03-10 12:11 | Outpatient (REF) | payer MEDICARE, SELFPAY ==
--- NOTE | ~2022-03-10 | XR_ITS ---
EXAMINATION: XR LUMBOSACRAL SPINE CLINICAL INFORMATION: Lower back pain. COMPARISON: None TECHNIQUE: AP and lateral views of the lumbosacral spine. FINDINGS: There is mild bony demineralization. There is a mild thoracolumbar dextroscoliosis. There is multi-level moderate to marked lower thoracic and lumbar degenerative disc disease, spondylosis and facet arthropathy. Degenerative disc disease is particularly pronounced at L5-S1, with marked disc space narrowing and a 1.5 cm anterolisthesis. There is a deformity of the L5 lower endplate posteriorly. There are aortoiliac atherosclerotic calcifications. There is borderline aneurysmal dilatation of the abdominal aorta, which shows a maximal caliber of approximately 3.0 cm. XR/XR lumbar spine 2-3V IMPRESSION: 1. There is multi-level marked lower thoracic and lumbar degenerative disc disease, spondylosis and facet arthropathy. Degenerative disc disease is particularly pronounced at L5-S1, with a 1.5 cm anterolisthesis. 2. There is a mild thoracolumbar dextroscoliosis. 3. There is borderline aneurysmal dilatation of the abdominal aorta. Recommend abdominal aortic ultrasound imaging surveillance.
== END 2022-03-10 12:12 | disposition home or self-care (01) ==
LOC: HO.XRAY 12:11
PROVIDERS: PCP Internal Medicine; Visit Provider Internal Medicine
DX: M54.50 Low back pain, unspecified (principal)
CPT/HCPCS: 72100

== ENCOUNTER 2023-02-08 14:10 | Outpatient (REF) | payer MEDICARE, SELFPAY ==
--- NOTE | ~2023-02-08 | XR_ITS ---
EXAMINATION: XR HIP, RIGHT CLINICAL INFORMATION: Pain. COMPARISON: None available. TECHNIQUE: AP and frog-leg lateral views of the right hip. FINDINGS: Bony alignment and mineralization are normal. The right acetabular joint space is well-maintained. There is very mild peripheral osteophyte formation of the articular surfaces of the right hip. The right femoral head is smooth. There is no fracture or dislocation. There are mild atherosclerotic calcifications. No foreign body is noted. XR/XR hip RT min 2V IMPRESSION: There is very mild osteoarthritic change of the right hip. No fracture or dislocation is seen.
== END 2023-02-08 14:11 | disposition home or self-care (01) ==
LOC: HO.XRAY 14:10
PROVIDERS: PCP Internal Medicine; Visit Provider Internal Medicine
DX: M25.551 Pain in right hip (principal)
CPT/HCPCS: 73502

== ENCOUNTER 2023-04-13 14:44 | Outpatient (REF) | payer MEDICARE, SELFPAY ==
--- NOTE | ~2023-04-13 | XR_ITS ---
EXAMINATION: XR LUMBOSACRAL SPINE CLINICAL INFORMATION: Reason for Exam LOW BACK PAIN. COMPARISON: Lumbar spine radiographs 03/10/2022 TECHNIQUE: 3 views of the lumbar spine FINDINGS: 5 nonrib-bearing lumbar-type vertebral bodies. Vertebral body heights are maintained. Dextroconvex curvature of the lumbar spine. Grade 2 anterolisthesis of L5 on S1 similar to prior. Advanced multilevel degenerative disc disease with loss of disc space height and facet arthropathy similar to prior. A 1.3 cm ovoid radiodensity overlying the right iliac bone, unclear if this could reflect ingested bowel contents or a dense sclerotic osseous lesion such as a bone island. Mild degenerative changes of the hips with subchondral sclerosis and cystic change. Atherosclerosis of the abdominal aorta. XR/XR lumbar spine 2-3V IMPRESSION: 1. Dextroconvex curvature of the lumbar spine. Grade 2 anterolisthesis of L5 on S1 similar to prior. 2. Advanced multilevel degenerative disc disease with loss of disc space height and facet arthropathy similar to prior. 3. A 1.3 cm ovoid radiodensity overlying the right iliac bone, unclear if this could reflect ingested bowel contents or a dense sclerotic osseous lesion such as a bone island. 4. Mild degenerative changes of the hips.
== END 2023-04-13 14:45 | disposition home or self-care (01) ==
LOC: HO.HMGCX 14:44
PROVIDERS: PCP Internal Medicine; Visit Provider Internal Medicine
DX: M54.50 Low back pain, unspecified (principal)
CPT/HCPCS: 72100

== ENCOUNTER 2024-07-18 13:11 | Outpatient (AMB) | payer MEDICARE, SELFPAY ==
[2024-07-18 13:51] LABS: ~PT, ~INR - Anti Coag Clinic 1.4 (0.9-1.1)
--- NOTE | 2024-07-18 14:10 | MHC.OFFVISCO ---
Intake Intake Visit Reasons: Anticoagulation Alum Operator Required: No Allergies No Known Allergies* Allergy (Uncoded 07/18/24 13:39) NKA Medication List - Last Reconciled 07/18/24 by Vannessa Borges RN acetaminophen 1,000 mg PO BID PRN albuterol sulfate 90 mcg/actuation (ProAir HFA) 2 puffs PO Q4H PRN albuterol sulfate 2.5 mg inhalation Q4H PRN apixaban (Eliquis) 1 tab PO BID carvedilol 1 tab PO BID docusate sodium (Stool Softener) 1 cap PO BID ferrous sulfate 324 mg PO BIDWM furosemide 1 tab PO DAILY gabapentin 400 mg PO TID latanoprost 0.005% 1 drp ophthalmic-Right BEDTIME levobunolol 0.5% 1 drp ophthalmic-Right BID lisinopril 10 mg See Protocol PO DAILY metformin 1 tab PO BID omeprazole 20 mg PO DAILY@0630 polyethylene glycol 3350 (Miralax) 17 grams PO BEDTIME potassium chloride ER 1 tab PO BID simvastatin 1 tab PO BEDTIME Nursing Note Pt to ACS for first visit. Arrived in w/c due to bad knees but can walk with wheeled walker. Pt drove self, used combination man to park his car, used wheeled walker to get into hospital, then used hospital w/c. 83 yo with hx of afib and aortic valve replacement. Started warfarin per Dr Mugg 5mg daily, start 07/15. Pt oriented to ACS and ACS routine. Anti-coag initial assessment done with Anti-coag education. Pt hesitant to verbalize understanding but was able to state reason for warfarin and risk for bleeding. Diet and other medications that can interact reviewed with pt and handouts given. INR: 1.4 out of therapeutic range of 2-3 Dose: 7.5mg today then 5mgtomorrow and the next day then retest Retest date: Sunday07/21/24 Pt able to verbalize understanding of dose with read back and next retest date. Anti-Coag Initial Assessment Social Hx Patient Tobacco Use Status: Former Tobacco user Tobacco use type: Cigarette Smoking packs per day: 1 (quit approx 40 years ago) alcohol intake: never Housing: House Housing Other:: lives with daughter current occupation: retired current occupational exposures/hazards: Yes (former occupation as [employer]/ used to breathe in dry cement and [place] powder) Fall risk assessment: No Falls in past year Cardiovascular Hx: CAD, MO, CHF, Arrhythmias and Other (pacemaker) Lung Disease HX: COPD Endocrine Hx: Diabetes Musculoskeletal Hx: Arthritis Blood Disorder Hx: Hyperlipidemia Hx: Kidney Disease Neurological Hx: Serious Head Injury Cancer HX: No Psych. Illness/Depression: No Surgeries: Eye surgery cataracts 2 Neck surgeries for injury from accident Nasal surgery Pacemaker Bovine Aortic Valve replacement Anti-Coag. Education Record Teaching Recipient: Patient What is the easiest way to learn: Reading, Listening, Picture, Demonstration and Education Packet List any additional concerns (family/financial etc.): glasses for reading Significant other who can be involved in Teaching Process when Indicated: daughter Alum Operator Required: No Readiness To Learn: Good Teaching Methods: Discussion, Handout, Protocol and Teach Back Response to Teaching: Return Demonstration and Verbalize Understanding Re-Education needs: Reinforce Content Education Intervention/Brief Description of Teaching 1. Able to state reason for taking Warfarin: Yes 2. Able to state Pain Management techniques: Yes 3. Able to state action of Warfarin.: Yes Able to state current dose, pill color, how and when Warfarin to be taken: Yes Able to identify signs of bleeding &/or clotting: Yes 4. Able to identify need to keep diet consistent in regard to vitamin K intake: Yes Able to state restriction on alcohol: Yes 5. Able to state need for compliance with PT/INR testing: Yes Describes rationale for carrying ID and wearing Medic Alert bracelet: Yes Patient instructed to monitor for excess bruising or signs/symptoms of clotting or bleeding: Yes 6. Able to state that there are drugs that interact with Warfin: Yes 7. Able to state the need to seek medical attention when illness/injury occur.: Yes Describes the need to avoid activities with high risk of injury: Yes 8. Able to state duration of treatment: Yes 9. Demonstrates understanding of notifying all providers of pending dental surgical, or other invasive procedures: Yes 10. Able to state Home Care instructions Questionnaires HAS-BLED Does the patient had uncontrolled Hypertension?: No Does the patient have renal disease?: Yes Does the patient have liver disease?: No Does the patient have a history of stroke?: No Has the patient had major bleeding or predisposition to bleeding?: No Does the patient have labile INRs?: No Is the patient over 65 years of age?: Yes Is the patient on medications that gives them a predisposition to bleeding?: Yes Does the patient use alcohol?: No HAS-BLED Score: 3 CHADSVASC Age: 75 or over Gender: Male Does the patient have a history of CHF?: Yes Does the patient have a history of Hypertension?: Yes Does the patient have a history of Stroke/TIA/Thromboembolism?: No Does the patient have a history of Vascular Disease (prior MO, PAD or aortic plaque)?: Yes Does the patient have a history of Diabetes?: Yes CHADS VACS Score: 6 [place] Prediction Score Rsk VTE Active Cancer: No Previous VTE, excluding superficial vein thrombosis: No Reduced mobility: Yes Already known Thrombophilic Condition: No With-in last month Trauma and/or Surgery: No Elderly 70 year or older: Yes Heart and/or Respiratory Failure: Yes Acute Myocardial infarction and/or Ischemic Stroke: Yes Acute Infection and/or Rheumatologic Disorder: No Obesity (BMI 30 or greater): Yes Ongoing Hormonal Treatment: No Score: 7 [place] Score less than 4; Low Risk of VTE [place] Score 4 or greater; High Risk of VTE Coding Level of Care Code New Patient Level 2 Diagnoses Current use of anticoagulant therapy Z79. Time Spent (min) 60 Assessment & Plan Assessment & Plan (1) Current use of anticoagulant therapy: Code(s): Z79.01 - roasterman (current) use of anticoagulants Category: Medical Orders: Orders AMB INR Today Z79.01 - [facility] (current) use of anticoagulants Medications: New warfarin 5 mg See Protocol PO DAILY
== END 2024-07-18 15:10 | disposition home or self-care (01) ==
LOC: HO.ACS 13:11
PROVIDERS: PCP Internal Medicine; Visit Provider Internal Medicine
DX: Z79.01 Long term (current) use of anticoagulants (principal)

== ENCOUNTER → 2024-07-18 13:11 | Outpatient (BNVA) | payer MEDICARE, SELFPAY | PROVIDERS: PCP Internal Medicine; Visit Provider Internal Medicine | DX: I48.21 Permanent atrial fibrillation (principal); Z79.01 Long term (current) use of anticoagulants; Z51.81 Encounter for therapeutic drug level monitoring | CPT/HCPCS: 85610; 99202 ==

== ENCOUNTER 2024-07-21 13:58 | Outpatient (AMB) | payer MEDICARE, SELFPAY ==
--- OUTSIDE RECORDS SUMMARY | 2024-07-21 14:02 | XMS_ITS | Clinical Summary ---
Author Organization Unknown Care Team Providers Care Mud Analysis Well Logging Operator Name Role Phone TOPHER PEREZ, JUAN Unavailable Unavailable ADELAIDA PT, BERTIN Unavailable Unavailable JOSE MIGUEL OT, SALLIE Unavailable Unavailable Payers Payer Name Policy Type Policy Number Effective Date Expira tion Date MEDICARE.NGS.PDGM [id number] Problems Condition Name Condition Details Condition Category Status Onset Date Resolution Date Last Treatment Date Treating Clinician Comments AFTERCARE FOLLOWING JOINT REPLACEMENT SURGERY Active 2020-08 00:00: 00 UNSPECIFIED ATRIAL FIBRILLATION Active 08-06 00:00: 00 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-4/UNSP CHR KDNY Active 08-06 00:00: 00 HEART FAILURE, UNSPECIFIED Active 08-06 00:00: 00 TYPE 2 DIABETES MELLITUS W DIABETIC CHRONIC KIDNEY DISEASE Active 08-06 00:00: 00 CHRONIC KIDNEY DISEASE, UNSPECIFIED Active 08-06 00:00: 00 TYPE 2 DIABETES MELLITUS WITH DIABETIC NEUROPATHY, UNSP Active 08-06 00:00: 00 CHRONIC OBSTRUCTIVE PULMONARY DISEASE, UNSPECIFIED Active 08-06 00:00: 00 UNSPECIFIED ASTHMA, UNCOMPLICATE D Active 08-06 00:00: 00 GASTRO-ESOPH AGEAL REFLUX DISEASE WITHOUT ESOPHAGITIS Active 08-06 00:00: 00 DIZZINESS AND GIDDINESS Active 08-06 00:00: 00 UNSPECIFIED GLAUCOMA Active 08-06 00:00: 00 HYPERLIPIDEM IA, UNSPECIFIED Active 08-06 00:00: 00 ATRIOVENTRIC ULAR BLOCK, COMPLETE Active 08-06 00:00: 00 OTHER CHRONIC PAIN Active 08-06 00:00: 00 LOW BACK PAIN, UNSPECIFIED Active 08-06 00:00: 00 MORBID (SEVERE) OBESITY DUE TO EXCESS CALORIES Active 08-06 00:00: 00 PRESENCE OF CARDIAC PACEMAKER Active 08-06 00:00: 00 PRESENCE OF RIGHT ARTIFICIAL KNEE JOINT Active 2020-08 00:00: 00 FPC (CURRENT) USE OF ORAL HYPOGLYCEMIC DRUGS Active 08-06 00:00: 00 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 Ordering Clinician Indication Dosage Frequency Signature (SIG) Comments Components clotrimazol e-betametha sone 1 %-0.05 % topical cream 2020-08 00:00: 00 08-21 00:00 :00 No [id number] Per instruc tions TWICE DAILY Per instructio ns TWICE DAILY (route: topical) Med Classific ation: Dermatolo gical latanoprost 0.005 % eye drops 05-02 00:00: 00 Yes [id number] GLAUCOMA Per instruc tions BEDTIME Per instructio ns BEDTIME (route: ophthalmic (eye)) Med Classific ation: Ophthalmi c Agents hydrocodone 5 mg-acetamin ophen 325 mg tablet 2020-08 00:00: 00 08-21 00:00 :00 No [id number] PAIN Per instruc tions 4 TIMES DAILY Per instructio ns 4 TIMES DAILY (route: oral) Med Classific ation: Analgesic , Anti-infl ammatory or Antipyret ic oxycodone 5 mg tablet 08-17 00:00: 00 Yes [id number] PAIN Per instruc tions EVERY 6 HOURS Per instructio ns EVERY 6 HOURS (route: oral) Med Classific ation: Analgesic , Anti-infl ammatory or Antipyret ic furosemide 40 mg tablet 2020-08 00:00: 00 Yes [id number] DIURETIC Per instruc tions DAILY Per instructio ns DAILY (route: oral) Med Classific ation: Cardiovas cular Therapy Agents gabapentin 600 mg tablet 2020-08 00:00: 00 Yes [id number] NEUROPATHY Per instruc tions THREE TIMES DAILY Per instructio ns THREE TIMES DAILY (route: oral) Med Classific ation: Central Nervous System Agents omeprazole 20 mg capsule,del ayed release 2020-08 1-05 00:00: 00 Yes [id number] ACID INDIGESTION Per instruc tions DAILY Per instructio ns DAILY (route: oral) Med Classific ation: Gastroint estinal Therapy Agents simvastatin 20 mg tablet 04-20 00:00: 00 Yes [id number] HLD Per instruc tions DAILY Per instructio ns DAILY (route: oral) Med Classific ation: Cardiovas cular Therapy Agents carvedilol 6.25 mg tablet 2020-08 00:00: 00 Yes [id number] HTN Per instruc tions TWICE DAILY Per instructio ns TWICE DAILY (route: oral) Med Classific ation: Cardiovas cular Therapy Agents lisinopril 10 mg tablet 2020-08 00:00: 00 Yes [id number] HTN Per instruc tions ONCE DAILY Per instructio ns ONCE DAILY (route: oral) Med Classific ation: Cardiovas cular Therapy Agents potassium chloride ER 10 mEq tablet,exte nded release 2020-08 00:00: 00 Yes [id number] HYPOKALEMIA Per instruc tions TWICE DAILY Per instructio ns TWICE DAILY (route: oral) Med Classific ation: Electroly te Balance-N utritiona l Products acetaminoph en 325 mg tablet 2020-08 00:00: 00 Yes [id number] PAIN Per instruc tions EVERY 6 HOURS Per instructio ns EVERY 6 HOURS (route: oral) Med Classific ation: Analgesic , Anti-infl ammatory or Antipyret ic Advair Diskus 250 mcg-50 mcg/dose powder for inhalation 2020-08 00:00: 00 Yes [id number] ASTHMA/COPD Per instruc tions 2 TIMES DAILY Per instructio ns 2 TIMES DAILY (route: inhalation ) Med Classific ation: Respirato ry Therapy Agents Aspirin Low Dose 81 mg tablet,collins yed release 08-19 00:00: 00 Yes [id number] PROPHYLAXIS Per instruc tions DAILY Per instructio ns DAILY (route: oral) Med Classific ation: Hematolog ical Agents Colace 100 mg capsule 08-19 00:00: 00 Yes [id number] CONSTIPATIO N Per instruc tions 2 TIMES DAILY Per instructio ns 2 TIMES DAILY (route: oral) Med Classific ation: Gastroint estinal Therapy Agents Eliquis 2.5 mg tablet 08-19 00:00: 00 Yes [id number] DVT PROPHYLAXIS Per instruc tions 2 TIMES DAILY Per instructio ns 2 TIMES DAILY (route: oral) Med Classific ation: Hematolog ical Agents ipratropium 0.5 mg-albutero l 3 mg (2.5 mg base)/3 mL nebulizatio n soln 2020-08 00:00: 00 Yes [id number] SOB/WHEEZIN G Per instruc tions NEEDED Per instructio ns NEEDED (route: inhalation ) Med Classific ation: Respirato ry Therapy Agents levobunolol 0.5 % eye drops 2020-08 00:00: 00 Yes [id number] GLAUCOMA Per instruc tions 2 TIMES DAILY Per instructio ns 2 TIMES DAILY (route: ophthalmic (eye)) Med Classific ation: Ophthalmi c Agents meclizine 25 mg tablet 2020-08 00:00: 00 Yes [id number] DIZZINESS Per instruc tions NEEDED Per instructio ns NEEDED (route: oral) Med Classific ation: Gastroint estinal Therapy Agents metformin 500 mg tablet 2020-08 00:00: 00 Yes [id number] DM Per instruc tions 2 TIMES DAILY Per instructio ns 2 TIMES DAILY (route: oral) Med Classific ation: Endocrine Milk of Magnesia 400 mg/5 mL oral suspension 08-19 00:00: 00 Yes [id number] CONSTIPATIO N Per instruc tions NEEDED Per instructio ns NEEDED (route: oral) Med Classific ation: Gastroint estinal Therapy Agents Miralax 17 gram/dose oral powder 08-19 00:00: 00 Yes [id number] BM MANAGEMENT Per instruc tions DAILY Per instructio ns DAILY (route: oral) Med Classific ation: Gastroint estinal Therapy Agents Proventil HFA 90 mcg/actuati on aerosol inhaler 2020-08 00:00: 00 Yes [id number] ASTHMA/COPD Per instruc tions 4 TIMES DAILY Per instructio ns 4 TIMES DAILY (route: inhalation ) Med Classific ation: Respirato ry Therapy Agents Senna Lax 8.6 mg tablet 08-19 00:00: 00 Yes [id number] CONSTIPATIO N Per instruc tions NEEDED Per instructio ns NEEDED (route: oral) Med Classific ation: Gastroint estinal Therapy Agents tramadol 50 mg tablet 08-19 00:00: 00 Yes [id number] PAIN Per instruc tions EVERY 6 HOURS Per instructio ns EVERY 6 HOURS (route: oral) Med Classific ation: Analgesic , Anti-infl ammatory or Antipyret ic Vital Signs Vital Name Observation Time Observation Value Commen ts Temperature 2021-09-15 10:20:00.000 97.6 [degF] Temperature 2021-09-14 12:47:00.000 97.1 [degF] Temperature 2021-09-13 13:02:00.000 97.9 [degF] Temperature 2021-09-12 11:19:28.000 97.7 [degF] Temperature 2021-09-08 12:54:06.000 97.9 [degF] Temperature 2021-09-07 10:25:00.000 98.1 [degF] Temperature 2021-09-06 15:50:00.000 97.8 [degF] Temperature 2021-09-06 13:25:00.000 97.5 [degF] Temperature 2021-08-31 09:48:00.000 98 [degF] Temperature 2021-08-29 13:30:00.000 97.3 [degF] Temperature 2021-08-29 11:46:00.000 98.2 [degF] Temperature 2021-08-26 10:46:00.000 97.7 [degF] Temperature 2021-08-24 12:40:00.000 97.3 [degF] Temperature 2021-08-23 21:26:00.000 97.6 [degF] Temperature 2021-08-22 15:12:00.000 96.9 [degF] Temperature 2021-08-21 11:01:00.000 97.5 [degF] Height 2021-08-21 11:01:00.000 65 [in_us] Pulse 2021-09-15 10:20:00.000 84 /min Pulse 2021-09-13 13:02:00.000 72 /min Pulse 2021-09-12 11:19:45.000 72 /min Pulse 2021-09-08 12:54:13.000 68 /min Pulse 2021-09-07 10:25:00.000 75 /min Pulse 2021-09-06 15:50:00.000 70 /min Pulse 2021-09-06 13:25:00.000 77 /min Pulse 2021-08-31 09:48:00.000 85 /min Pulse 2021-08-30 13:10:00.000 81 /min Pulse 2021-08-29 13:30:00.000 70 /min Pulse 2021-08-29 11:46:00.000 72 /min Pulse 2021-08-26 10:16:00.000 74 /min Pulse 2021-08-24 12:40:00.000 76 /min Pulse 2021-08-23 21:26:00.000 74 /min Pulse 2021-08-22 15:14:00.000 71 /min Pulse 2021-08-21 11:01:00.000 75 /min O2 Saturation (%) 2021-09-15 10:20:00.000 96 % O2 Saturation (%) 2021-09-12 11:21:01.000 97 % O2 Saturation (%) 2021-09-08 12:54:50.000 97 % O2 Saturation (%) 2021-09-06 13:25:00.000 95 % O2 Saturation (%) 2021-08-30 13:10:00.000 99 % O2 Saturation (%) 2021-08-29 13:30:00.000 97 % O2 Saturation (%) 2021-08-26 10:19:00.000 97 % O2 Saturation (%) 2021-08-23 21:27:00.000 96 % O2 Saturation (%) 2021-08-22 15:14:00.000 94 % Respirations 2021-09-15 10:20:00.000 16 /min Respirations 2021-09-13 13:02:00.000 16 /min Respirations 2021-09-12 11:19:52.000 18 /min Respirations 2021-09-08 12:54:22.000 18 /min Respirations 2021-09-07 10:25:00.000 18 /min Respirations 2021-09-06 15:50:00.000 16 /min Respirations 2021-09-06 13:25:00.000 16 /min Respirations 2021-08-31 09:48:00.000 16 /min Respirations 2021-08-29 13:30:00.000 20 /min Respirations 2021-08-29 11:46:00.000 16 /min Respirations 2021-08-26 10:16:00.000 16 /min Respirations 2021-08-24 12:40:00.000 16 /min Respirations 2021-08-23 21:26:00.000 18 /min Respirations 2021-08-22 15:14:00.000 18 /min Respirations 2021-08-21 11:01:00.000 18 /min Weight (lbs) 2021-08-21 11:01:00.000 248 [lb_av] Systolic Blood Pressure 2021-09-15 10:20:00.000 114 mm [Hg] Systolic Blood Pressure 2021-09-13 13:02:00.000 128 mm [Hg] Systolic Blood Pressure 2021-09-12 11:20:23.000 106 mm [Hg] Systolic Blood Pressure 2021-09-08 12:54:41.000 100 mm [Hg] Systolic Blood Pressure 2021-09-07 10:25:00.000 106 mm [Hg] Systolic Blood Pressure 2021-09-06 15:50:00.000 112 mm [Hg] Systolic Blood Pressure 2021-09-06 13:25:00.000 100 mm [Hg] Systolic Blood Pressure 2021-08-31 09:48:00.000 115 mm [Hg] Systolic Blood Pressure 2021-08-30 13:22:00.000 110 mm [Hg] Systolic Blood Pressure 2021-08-29 13:30:00.000 108 mm [Hg] Systolic Blood Pressure 2021-08-29 11:46:00.000 122 mm [Hg] Systolic Blood Pressure 2021-08-26 10:16:00.000 120 mm [Hg] Systolic Blood Pressure 2021-08-24 12:40:00.000 100 mm [Hg] Systolic Blood Pressure 2021-08-23 21:26:00.000 116 mm [Hg] Systolic Blood Pressure 2021-08-22 15:23:00.000 110 mm [Hg] Systolic Blood Pressure 2021-08-21 11:01:00.000 110 mm [Hg] Diastolic Blood Pressure 2021-09-15 10:20:00.000 68 mm [Hg] Diastolic Blood Pressure 2021-09-13 13:02:00.000 70 mm [Hg] Diastolic Blood Pressure 2021-09-12 11:20:23.000 60 mm [Hg] Diastolic Blood Pressure 2021-09-08 12:54:41.000 60 mm [Hg] Diastolic Blood Pressure 2021-09-07 10:25:00.000 62 mm [Hg] Diastolic Blood Pressure 2021-09-06 15:50:00.000 70 mm [Hg] Diastolic Blood Pressure 2021-09-06 13:25:00.000 59 mm [Hg] Diastolic Blood Pressure 2021-08-31 09:48:00.000 85 mm [Hg] Diastolic Blood Pressure 2021-08-30 13:22:00.000 70 mm [Hg] Diastolic Blood Pressure 2021-08-29 13:30:00.000 56 mm [Hg] Diastolic Blood Pressure 2021-08-29 11:46:00.000 75 mm [Hg] Diastolic Blood Pressure 2021-08-26 10:16:00.000 80 mm [Hg] Diastolic Blood Pressure 2021-08-24 12:40:00.000 60 mm [Hg] Diastolic Blood Pressure 2021-08-23 21:26:00.000 74 mm [Hg] Diastolic Blood Pressure 2021-08-22 15:23:00.000 60 mm [Hg] Diastolic Blood Pressure 2021-08-21 11:01:00.000 64 mm [Hg] Plan of Treatment Planned Activity Planned Date Details Comments Future Scheduled Test AGENCY MAY PERFORM A RESUMPTION OF CARE VISIT FOLLOWING ANY HOSPITAL ADMISSION. PHYSICAL THERAPY TO EVALUATE, ASSESS AND MONITOR, PROVIDE SKILLED THERAPEUTIC INTERVENTION, ACTIVITY, EDUCATION, AND TRAINING TO ADDRESS: [code = AGENCY MAY PERFORM A RESUMPTION OF CARE VISIT FOLLOWING ANY HOSPITAL ADMISSION. PHYSICAL THERAPY TO EVALUATE, ASSESS AND MONITOR, PROVIDE SKILLED THERAPEUTIC INTERVENTION, ACTIVITY, EDUCATION, AND TRAINING TO ADDRESS:] Future Scheduled Test TRANSFER T RAINING (PT) [code = TRANSFER TRAINING (PT)] Future Scheduled Test GAIT TRAIN ING (PT) [code = GAIT TRAINING (PT)] Future Scheduled Test THERAPEUTI C EXERCISES (PT) [code = THERAPEUTIC EXERCISES (PT)] Future Scheduled Test MANUAL THE RAPY (PT); [code = MANUAL THERAPY (PT);] Future Scheduled Test ORTHOPEDIC SURGICAL AFTERCARE (PT) MAY TEACH PATIENT APPLICATION OF CRYOTHERAPY FOR PAIN AND/OR SWELLING UP TO 20 MIN AT A TIME OVER INCISION/JOINT [code = ORTHOPEDIC SURGICAL AFTERCARE (PT) MAY TEACH PATIENT APPLICATION OF CRYOTHERAPY FOR PAIN AND/OR SWELLING UP TO 20 MIN AT A TIME OVER INCISION/JOINT] Future Scheduled Test KNEE REPLA CEMENT SELF-MANAGEMENT (PT) [code = KNEE REPLACEMENT SELF-MANAGEMENT (PT)] Future Scheduled Test IDENTIFY F ALL RISK FACTORS AND ESTABLISH HOME EXERCISE PROGRAM TO MINIMIZE FALL RISK (PT) [code = IDENTIFY FALL RISK FACTORS AND ESTABLISH HOME EXERCISE PROGRAM TO MINIMIZE FALL RISK (PT)] Future Scheduled Test PAIN MANAG EMENT (PT) [code = PAIN MANAGEMENT (PT)] Future Scheduled Test PHYSICAL T HERAPY TO INSTRUCT PATIENT/CAREGIVER ON RISK FOR HOSPITALIZATION, TEACH SIGNS AND SYMPTOMS THAT PUT PATIENT AT RISK, WHEN TO NOTIFY CLINICIAN OF COMPLICATIONS/DECLINE, AND WHEN TO CALL 911. PHYSICAL THERAPY TO INSTRUCT PATIENT/CAREGIVER ON: SIGNS AND SYMPTOMS TO BE ON ALERT FOR EARLY INTERVENTION, PRIOR TO NEEDING EMERGENCY SERVICES CALL US FIRST TO KEEP BULB FARMWORKER SYMPTOM REPORT FOR VISIBLE REFERENCE NOTIFY CLINICIAN/PHYSICIAN FOR DECLINE IN STATUS WHEN AND HOW TO CALL HOME HEALTH AGENCY FACILITATE PHYSICIAN FOLLOW UP APPOINTMENT IDENTIFY SOCIOECONOMIC CONCERNS AND MAKE APPROPRIATE REFERRAL NEEDED [code = PHYSICAL THERAPY TO INSTRUCT PATIENT/CAREGIVER ON RISK FOR HOSPITALIZATION, TEACH SIGNS AND SYMPTOMS THAT PUT PATIENT AT RISK, WHEN TO NOTIFY CLINICIAN OF COMPLICATIONS/DECLINE, AND WHEN TO CALL 911. PHYSICAL THERAPY TO INSTRUCT PATIENT/CAREGIVER ON: SIGNS AND SYMPTOMS TO BE ON ALERT FOR EARLY INTERVENTION, PRIOR TO NEEDING EMERGENCY SERVICES CALL US FIRST TO KEEP BULB FARMWORKER SYMPTOM REPORT FOR VISIBLE REFERENCE NOTIFY CLINICIAN/PHYSICIAN FOR DECLINE IN STATUS WHEN AND HOW TO CALL HOME HEALTH AGENCY FACILITATE PHYSICIAN FOLLOW UP APPOINTMENT IDENTIFY SOCIOECONOMIC CONCERNS AND MAKE APPROPRIATE REFERRAL NEEDED] Future Scheduled Test OCCUPATION AL THERAPIST TO EVALUATE FOR UE STRENGTH AND SAFETY WITH ADLS [code = OCCUPATIONAL THERAPIST TO EVALUATE FOR UE STRENGTH AND SAFETY WITH ADLS ] Future Scheduled Test INCISION S ITE CARE (PT) - ASSESS AND MONITOR THE SURGICAL INCISION ON RIGHT KNEE MANAGE SURGICAL INCISION ON RIGHT KNEE [code = INCISION SITE CARE (PT) - ASSESS AND MONITOR THE SURGICAL INCISION ON RIGHT KNEE MANAGE SURGICAL INCISION ON RIGHT KNEE ] Future Scheduled Test AGENCY MAY PERFORM A RESUMPTION OF CARE VISIT FOLLOWING ANY HOSPITAL ADMISSION. OCCUPATIONAL THERAPY TO EVALUATE, ASSESS, AND MONITOR, PROVIDE SKILLED THERAPEUTIC INTERVENTION, ACTIVITY, EDUCATION, AND TRAINING TO ADDRESS; BATHING/SHOWERING (OT) TOILETING (OT) DRESSING (OT) MODIFIED ROD INDEX (OT) MEAL PREPARATION AND CLEANUP (OT) HOME ESTABLISHMENT AND HOME MAINTENANCE (OT) CAR TRANSFER (OT) EQUILIBRIUM REACTIONS/BALANCE (OT) ENERGY CONSERVATION/ACTIVITY DEMAND (OT) UPPER EXTREMITY MUSCLE POWER (OT) PAIN MANAGEMENT (OT) FALL REDUCTION (OT) SURGICAL AFTERCARE EDUCATION (OT) KNEE REPLACEMENT (OT) [code = AGENCY MAY PERFORM A RESUMPTION OF CARE VISIT FOLLOWING ANY HOSPITAL ADMISSION. OCCUPATIONAL THERAPY TO EVALUATE, ASSESS, AND MONITOR, PROVIDE SKILLED THERAPEUTIC INTERVENTION, ACTIVITY, EDUCATION, AND TRAINING TO ADDRESS; BATHING/SHOWERING (OT) TOILETING (OT) DRESSING (OT) MODIFIED ROD INDEX (OT) MEAL PREPARATION AND CLEANUP (OT) HOME ESTABLISHMENT AND HOME MAINTENANCE (OT) CAR TRANSFER (OT) EQUILIBRIUM REACTIONS/BALANCE (OT) ENERGY CONSERVATION/ACTIVITY DEMAND (OT) UPPER EXTREMITY MUSCLE POWER (OT) PAIN MANAGEMENT (OT) FALL REDUCTION (OT) SURGICAL AFTERCARE EDUCATION (OT) KNEE REPLACEMENT (OT)] Goal 2021-09-15 Patient Goal - WALK WITHOUT PAIN Goal Provider Goal - Goal Provider Goal - PT STG: PATIENT WILL DEMONSTRATE IMPROVED TRANSFERS FROM SBA TO INDEPENDENT WITH UE ASSIST WITHIN 3 WEEKS Goal Provider Goal - PT STG: PATIENT WILL DEMONSTRATE ADEQUATE STEP LENGTH, FOOT CLEARANCE AND CONSISTENT HEEL STRIKE BILATERALLY TO IMPROVE GAIT PATTERN WITHIN 3 WEEKS PT LTG: PATIENT WILL DEMONSTRATE IMPROVED AMBULATION FROM SBA TO INDEPENDENT WITH ROLLATOR WITHIN 4 WEEKS PT LTG: PATIENT WILL DEMONSTRATE IMPROVED SAFETY NEGOTIATING STAIRS FROM MIN ASSIST TO INDEPENDENT WITH RAIL WITHIN 4 WEEKS Goal Provider Goal - PT STG: PATIENT WILL DEMONSTRATE INDEPENDENCE WITH LOWER EXTREMITY HOME EXERCISE PROGRAM WITHIN 3 WEEKS PT LTG: PATIENT WILL DEMONSTRATE INCREASED STRENGTH OF RIGHT LE FROM 3-/5 TO 4/5 WITHIN 4 WEEKS IN ORDER TO IMPROVE SAFETY AND STABILITY WITH GAIT AND STAIRS PT LTG: PATIENT WILL DEMONSTRATE DECREASE PAIN FROM 7/10 TO 3/10 WITHIN 4 WEEKS IN ORDER TO IMPROVE TOLERANCE FOR FUNCTIONAL MOBILITY Goal Provider Goal - PT LTG: PATIENT WILL DEMONSTRATE INCREASED ROM OF RIGHT KNEE FROM -8-101 DEGREES TO 0-120 DEGREES WITHIN 4 WEEKS IN ORDER TO IMPROVE GAIT PATTERN AND TRANSFER TECHNIQUE Goal Provider Goal - PATIENT WILL DEMONSTRATE NORMAL HEALING FOLLOWING SURGERY WITH NO COMPLICATIONS BY DISCHARGE. Goal Provider Goal - PT GOAL: PATIENT WILL DEMONSTRATE OPTIMAL OUTCOMES, INCLUDING INCREASED ROM AND STRENGTH FOLLOWING TKA BY DISCHARGE. Goal Provider Goal - PATIENT/CAREGIVER WILL DEMONSTRATE ADHERENCE TO FALL REDUCTION SELF MANAGEMENT TO MINIMIZE FALL RISK BY DISCHARGE. Goal Provider Goal - PT GOAL: PATIENT/CAREGIVER WILL VERBALIZE UNDERSTANDING OF PAIN MANAGEMENT BY DISCHARGE. Goal Provider Goal - PATIENT/CAREGIVER WILL VERBALIZE UNDERSTANDING OF SIGNS AND SYMPTOMS THAT PUT THE PATIENT AT RISK FOR HOSPITALIZATION, WHEN TO NOTIFY THERAPIST/NURSE OF COMPLICATIONS/DECLINE AND WHEN TO CALL 911. Goal Provider Goal - Goal Provider Goal - PT GOAL: PATIENT / CAREGIVER WILL VERBALIZE / DEMONSTRATE ABILITY TO PERFORM WOUND CARE. WOUND STATUS WILL IMPROVE EVIDENCED BY A DECREASE IN SIZE, DRAINAGE, ABSENCE OF INFECTION, AND DECREASED PAIN BY DISCHARGE. Goal Provider Goal - OT STG: PATIENT WILL DEMONSTRATE IMPROVED ABILITY TO SHOWER WITH ADAPTIVE EQUIPMENT FROM UNABLE TO MINIMAL ASSISTANCE UTILIZING ENERGY CONSERVATION AND WORK SIMPLIFICATION TECHNIQUES WITHIN 4 WEEKS OT LTG: PATIENT WILL DEMONSTRATE IMPROVED ABILITY TO PERFORM LOWER BODY DRESSING INCLUDING ITEM RETRIEVAL FROM MINIMAL ASSISTANCE TO INDEPENDENCE WITHIN 3 WEEKS. OT LTG: PATIENT WILL PERFORM SHOWER TRANSFER FROM UNABLE TO INDEPENDENT WITH USE OF ADAPTIVE EQUIPMENT WITHIN 4 WEEKS OT STG: PATIENT WILL DEMONSTRATE IMPROVED ABILITY TO PERFORM TOILET TRANSFER FROM SBA ASSISTANCE TO INDEPENDENCE WITH NEEDED ADAPTIVE EQUIPMENT WITHIN 2 WEEKS. OT LTG: PATIENT WILL DEMONSTRATE THE ABILITY TO COMPLETE MEAL PREPARATION AND CLEANUP FROM MINIMAL ASSISTANCE TO INDEPENDENCE UTILIZING ENERGY CONSERVATION AND WORK SIMPLIFICATION WITHIN 4 WEEKS. OT LTG: PATIENT WILL DEMONSTRATE IMPROVED INDEPENDENCE WITH ACTIVITIES OF DAILY LIVING (ADL) SKILLS EVIDENCED BY AN IMPROVEMENT IN MODIFIED ROD INDEX SCORE FROM 78/100 TO 90/100 INDICATING DECREASED DEPENDENCY ON CAREGIVER ASSISTANCE WITHIN 4 WEEKS. OT LTG: PATIENT WILL DEMONSTRATE THE ABILITY TO COMPLETE HOME ESTABLISHMENT/MANAGEMENT FROM MAX A TO INDEPENDENCE WITHIN 4 WEEKS. OT LTG: PATIENT WILL DEMONSTRATE DECREASED FALL RISK EVIDENCED BY AN IMPROVEMENT IN FUNCTIONAL REACH SCORE FROM 0 INCHES TO 6 INCHES WITHIN 4 WEEKS OT LTG: PATIENT/CAREGIVER WILL BE ABLE TO IMPLEMENT OCCUPATIONAL THERAPY EDUCATION RECOMMENDATIONS SPECIFIC TO FALL REDUCTION FOR IMPROVED ADL/IADL COMPLETION AND HOME SAFETY BY DISCHARGE WITHIN 4 WEEKS. OT LTG: PATIENT/CAREGIVER WILL INCORPORATE SURGICAL AFTERCARE PATIENT EMPOWERMENT STRATEGIES INTO DAILY ROUTINE BY DISCHARGE IN 4 WEEKS. OT LTG: PATIENT/CAREGIVER WILL INCORPORATE TOTAL KNEE REPLACEMENT PATIENT EMPOWERMENT STRATEGIES INTO DAILY ROUTINE BY DISCHARGE 4 WEEKS. OT LTG: PATIENT WILL DEMONSTRATE IMPROVED BUE MUSCLE POWER EVIDENCED BY AN IMPROVEMENT IN MMT FROM 4- / 5 TO 4+/5 AND BE INDEPENDENT WITH HEP WITHIN 4 WEEKS. OT LTG: PATIENT WILL DEMONSTRATE THE ABILITY TO COMPLETE A CAR TRANSFER FROM MOD A TO INDEPENDENCE WITHIN 4 WEEKS PATIENT WILL VERBALIZE UNDERSTANDING OF PAIN MANAGEMENT TECHNIQUES BY DISCHARGE. Reason for Visit INDEPENDENT WITH USE OF ASSISTIVE DEVICE Encounters Start Date/Time End Date/Time Encounter Type Admission Type Attending [facility] Facility Care Department Encounter ID Discharge Date Discharge Status Discharge Condition Discharge Reason Percent Goals Met 2021-08-21 00:00:00 2021-09-15 00:00:00 Outpatient NEW ADMISSION [facility] [id number] 2021-09-15 00:00:00 DISCHARGE TO HOME OR SELF CARE INDEPENDEN T WITH USE OF ASSISTIVE DEVICE HH ONLY - OUT PATIENT 100.00
--- OUTSIDE RECORDS SUMMARY | 2024-07-21 14:02 | XMS_ITS | Clinical Summary ---
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 TS Active 08-06 [...] 2020-08 00:00: 00 08-21 00:00 :00 No [id number] Per instruc tions TWICE DAILY Per instructio ns TWICE DAILY (route: topical) Med Classific ation: Dermatolo gical latanoprost 0.005 % eye drops 05-02 00:00: 00 Yes [id number] GLAUCOMA Per instruc tions BEDTIME Per instructio ns BEDTIME (route: ophthalmic (eye)) Med Classific ation: Ophthalmi c Agents hydrocodone 5 mg-acetamin ophen 325 mg tablet 2020-08 00:00: 00 08-21 00:00 :00 No [id number] PAIN Per instruc tions 4 TIMES DAILY Per instructio ns 4 TIMES DAILY (route: oral) Med Classific ation: Analgesic , Anti-infl ammatory or Antipyret ic oxycodone 5 mg tablet 08-17 00:00: 00 Yes [id number] PAIN Per instruc tions EVERY 6 HOURS Per instructio ns EVERY 6 HOURS (route: oral) Med Classific ation: Analgesic , Anti-infl ammatory or Antipyret ic furosemide 40 mg tablet 2020-08 00:00: 00 Yes [id number] DIURETIC Per instruc tions DAILY Per instructio ns DAILY (route: oral) Med Classific ation: Cardiovas cular Therapy Agents gabapentin 600 mg tablet 2020-08 00:00: 00 Yes [id number] NEUROPATHY Per instruc tions THREE TIMES DAILY Per instructio ns THREE TIMES DAILY (route: oral) Med Classific ation: Central Nervous System Agents omeprazole 20 mg capsule,del ayed release 2020-08 1-05 00:00: 00 Yes [id number] ACID INDIGESTION Per instruc tions DAILY Per instructio ns DAILY (route: oral) Med Classific ation: Gastroint estinal Therapy Agents simvastatin 20 mg tablet 04-20 00:00: 00 Yes [id number] HLD Per instruc tions DAILY Per instructio ns DAILY (route: oral) Med Classific ation: Cardiovas cular Therapy Agents carvedilol 6.25 mg tablet 2020-08 00:00: 00 Yes [id number] HTN Per instruc tions TWICE DAILY Per instructio ns TWICE DAILY (route: oral) Med Classific ation: Cardiovas cular Therapy Agents lisinopril 10 mg tablet 2020-08 00:00: 00 Yes [id number] HTN Per instruc tions ONCE DAILY Per instructio ns ONCE DAILY (route: oral) Med Classific ation: Cardiovas cular Therapy Agents potassium chloride ER 10 mEq tablet,exte nded release 2020-08 00:00: 00 Yes [id number] HYPOKALEMIA Per instruc tions TWICE DAILY Per instructio ns TWICE DAILY (route: oral) Med Classific ation: Electroly te Balance-N utritiona l Products acetaminoph en 325 mg tablet 2020-08 00:00: 00 Yes [id number] PAIN Per instruc tions EVERY 6 HOURS Per instructio ns EVERY 6 HOURS (route: oral) Med Classific ation: Analgesic , Anti-infl ammatory or Antipyret ic Advair Diskus 250 mcg-50 mcg/dose powder for inhalation 2020-08 00:00: 00 Yes [id number] ASTHMA/COPD Per instruc tions 2 TIMES DAILY Per instructio ns 2 TIMES DAILY (route: inhalation ) Med Classific ation: Respirato ry Therapy Agents Aspirin Low Dose 81 mg tablet,collins yed release 08-19 00:00: 00 Yes [id number] PROPHYLAXIS Per instruc tions DAILY Per instructio ns DAILY (route: oral) Med Classific ation: Hematolog ical Agents Colace 100 mg capsule 08-19 00:00: 00 Yes [id number] CONSTIPATIO N Per instruc tions 2 TIMES DAILY Per instructio ns 2 TIMES DAILY (route: oral) Med Classific ation: Gastroint estinal Therapy Agents Eliquis 2.5 mg tablet 08-19 00:00: 00 Yes [id number] DVT PROPHYLAXIS Per instruc tions 2 TIMES DAILY Per instructio ns 2 TIMES DAILY (route: oral) Med Classific ation: Hematolog ical Agents ipratropium 0.5 mg-albutero l 3 mg (2.5 mg base)/3 mL nebulizatio n soln 2020-08 00:00: 00 Yes [id number] SOB/WHEEZIN G Per instruc tions NEEDED Per instructio ns NEEDED (route: inhalation ) Med Classific ation: Respirato ry Therapy Agents levobunolol 0.5 % eye drops 2020-08 00:00: 00 Yes [id number] GLAUCOMA Per instruc tions 2 TIMES DAILY Per instructio ns 2 TIMES DAILY (route: ophthalmic (eye)) Med Classific ation: Ophthalmi c Agents meclizine 25 mg tablet 2020-08 00:00: 00 Yes [id number] DIZZINESS Per instruc tions NEEDED Per instructio ns NEEDED (route: oral) Med Classific ation: Gastroint estinal Therapy Agents metformin 500 mg tablet 2020-08 00:00: 00 Yes [id number] DM Per instruc tions 2 TIMES DAILY Per instructio ns 2 TIMES DAILY (route: oral) Med Classific ation: Endocrine Milk of Magnesia 400 mg/5 mL oral suspension 08-19 00:00: 00 Yes [id number] CONSTIPATIO N Per instruc tions NEEDED Per instructio ns NEEDED (route: oral) Med Classific ation: Gastroint estinal Therapy Agents Miralax 17 gram/dose oral powder 08-19 00:00: 00 Yes [id number] BM MANAGEMENT Per instruc tions DAILY Per instructio ns DAILY (route: oral) Med Classific ation: Gastroint estinal Therapy Agents Proventil HFA 90 mcg/actuati on aerosol inhaler 2020-08 00:00: 00 Yes [id number] ASTHMA/COPD Per instruc tions 4 TIMES DAILY Per instructio ns 4 TIMES DAILY (route: inhalation ) Med Classific ation: Respirato ry Therapy Agents Senna Lax 8.6 mg tablet 08-19 00:00: 00 Yes [id number] CONSTIPATIO N Per instruc tions NEEDED Per instructio ns NEEDED (route: oral) Med Classific ation: Gastroint estinal Therapy Agents tramadol 50 mg tablet 08-19 00:00: 00 Yes [id number] PAIN Per instruc tions EVERY 6 HOURS [...] EMERGENCY SERVICES CALL US FIRST TO KEEP CHIEF GREEN OFFICER SYMPTOM REPORT FOR VISIBLE REFERENCE NOTIFY CLINICIAN/PHYSICIAN [...] EMERGENCY SERVICES CALL US FIRST TO KEEP CHIEF GREEN OFFICER SYMPTOM REPORT FOR VISIBLE REFERENCE NOTIFY CLINICIAN/PHYSICIAN [...] End Date/Time Encounter Type Admission Type Attending [facility] Facility Care Department Encounter ID Discharge Date Discharge Status Discharge Condition Discharge Reason Percent Goals Met 2021-08-21 00:00:00 2021-09-15 00:00:00 Outpatient NEW ADMISSION BERTIN SON [facility] [id number] 2021-09-15 00:00:00 DISCHARGE TO HOME OR SELF CARE INDEPENDEN T WITH USE OF ASSISTIVE DEVICE HH ONLY - OUT PATIENT 100.00
[2024-07-21 14:20] LABS: Prothrombin Time Whole Bld POC 37.2 sec (11.1-13.5); ~PT, ~INR - Anti Coag Clinic 3.1 (0.9-1.1)
--- NOTE | 2024-07-21 14:28 | MHC.OFFVISCO ---
Intake Intake Visit Reasons: Anticoagulation Allergies No Known Allergies* Allergy (Uncoded 07/21/24 13:59) NKA Medication List - Last Reconciled 07/21/24 by Vannessa Borges RN acetaminophen 1,000 mg PO BID PRN albuterol sulfate 90 mcg/actuation (ProAir HFA) 2 puffs PO Q4H PRN albuterol sulfate 2.5 mg inhalation Q4H PRN apixaban (Eliquis) 1 tab PO BID carvedilol 1 tab PO BID docusate sodium (Stool Softener) 1 cap PO BID ferrous sulfate 324 mg PO BIDWM gabapentin 400 mg PO TID latanoprost 0.005% 1 drp ophthalmic-Right BEDTIME levobunolol 0.5% 1 drp ophthalmic-Right BID lisinopril 10 mg See Protocol PO DAILY metformin 1 tab PO BID omeprazole 20 mg PO DAILY@0630 polyethylene glycol 3350 (Miralax) 17 grams PO BEDTIME potassium chloride ER 1 tab PO BID simvastatin 1 tab PO BEDTIME warfarin 5 mg See Protocol PO DAILY Nursing Note INR: 3.1?out of therapeutic range of 2-3 Medications and supplements reviewed Patient status: no changes Medications or supplements: no changes Diet: no changes Denies any signs and symptoms of bleeding or clotting or unusual bruising Bleeding, bruising, clotting discussed Nutritional guidance given: usual diet for pt Dose: decrease dose today from 5mg to 2.5mg then 5mg daily F/U INR Date : 4 days?? Patient verbalizing understanding of instructions given. Anti-Coag Initial Assessment Social Hx Patient Tobacco Use Status: Former Tobacco user Tobacco use type: Cigarette Smoking packs per day: 1 (quit approx 40 years ago) alcohol intake: never Cardiovascular Hx: CAD, NC, CHF, Arrhythmias and Other (pacemaker) Lung Disease HX: COPD Endocrine Hx: Diabetes Musculoskeletal Hx: Arthritis Blood Disorder Hx: Hyperlipidemia Hx: Kidney Disease Neurological Hx: Serious Head Injury Cancer HX: No Psych. Illness/Depression: No Coding Level of Care Code Est Patient Level 1 Diagnoses Current use of anticoagulant therapy Z79.01 Results AMB INR Fingerstick AMB INR Fingerstick 3.1 Last Edit by Vannessa Borges RN on 07/21/24 14:19 interface delay Assessment & Plan Assessment & Plan (1) Current use of anticoagulant therapy: Code(s): Z79.01 - [facility] (current) use of anticoagulants Category: Medical Medications: New glipizide 5 mg PO BID dapagliflozin propanediol (Farxiga) 10 mg PO DAILY meclizine 25 mg PO TID torsemide 20 mg PO DAILY ipratropium-albuterol 0.5 mg-3 mg(2.5 mg base)/3 mL 3 mL inhalation Q6H PRN Changed From gabapentin 400 mg PO TID To gabapentin 700 mg PO TID
== END 2024-07-21 15:27 | disposition home or self-care (01) ==
LOC: HO.ACS 13:58
PROVIDERS: PCP Internal Medicine; Visit Provider Internal Medicine
DX: Z79.01 Long term (current) use of anticoagulants (principal)

== ENCOUNTER → 2024-07-21 13:58 | Outpatient (BNVA) | payer MEDICARE, SELFPAY | PROVIDERS: PCP Internal Medicine; Visit Provider Internal Medicine | DX: I48.21 Permanent atrial fibrillation (principal); Z79.01 Long term (current) use of anticoagulants; Z51.81 Encounter for therapeutic drug level monitoring | CPT/HCPCS: 85610; 99211 ==

== ENCOUNTER 2024-07-25 14:22 | Outpatient (AMB) | payer MEDICARE, SELFPAY ==
--- OUTSIDE RECORDS SUMMARY | 2024-07-25 14:24 | XMS_ITS | Clinical Summary ---
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 TS Active 08-06 [...] 2020-08 00:00: 00 08-21 00:00 :00 No [id number] Per instruc tions TWICE DAILY Per instructio ns TWICE DAILY (route: topical) Med Classific ation: Dermatolo gical latanoprost 0.005 % eye drops 05-02 00:00: 00 Yes [id number] GLAUCOMA Per instruc tions BEDTIME Per instructio ns BEDTIME (route: ophthalmic (eye)) Med Classific ation: Ophthalmi c Agents hydrocodone 5 mg-acetamin ophen 325 mg tablet 2020-08 00:00: 00 08-21 00:00 :00 No [id number] PAIN Per instruc tions 4 TIMES DAILY Per instructio ns 4 TIMES DAILY (route: oral) Med Classific ation: Analgesic , Anti-infl ammatory or Antipyret ic oxycodone 5 mg tablet 08-17 00:00: 00 Yes [id number] PAIN Per instruc tions EVERY 6 HOURS Per instructio ns EVERY 6 HOURS (route: oral) Med Classific ation: Analgesic , Anti-infl ammatory or Antipyret ic furosemide 40 mg tablet 2020-08 00:00: 00 Yes [id number] DIURETIC Per instruc tions DAILY Per instructio ns DAILY (route: oral) Med Classific ation: Cardiovas cular Therapy Agents gabapentin 600 mg tablet 2020-08 00:00: 00 Yes [id number] NEUROPATHY Per instruc tions THREE TIMES DAILY Per instructio ns THREE TIMES DAILY (route: oral) Med Classific ation: Central Nervous System Agents omeprazole 20 mg capsule,del ayed release 2020-08 1-05 00:00: 00 Yes [id number] ACID INDIGESTION Per instruc tions DAILY Per instructio ns DAILY (route: oral) Med Classific ation: Gastroint estinal Therapy Agents simvastatin 20 mg tablet 04-20 00:00: 00 Yes [id number] HLD Per instruc tions DAILY Per instructio ns DAILY (route: oral) Med Classific ation: Cardiovas cular Therapy Agents carvedilol 6.25 mg tablet 2020-08 00:00: 00 Yes [id number] HTN Per instruc tions TWICE DAILY Per instructio ns TWICE DAILY (route: oral) Med Classific ation: Cardiovas cular Therapy Agents lisinopril 10 mg tablet 2020-08 00:00: 00 Yes [id number] HTN Per instruc tions ONCE DAILY Per instructio ns ONCE DAILY (route: oral) Med Classific ation: Cardiovas cular Therapy Agents potassium chloride ER 10 mEq tablet,exte nded release 2020-08 00:00: 00 Yes [id number] HYPOKALEMIA Per instruc tions TWICE DAILY Per instructio ns TWICE DAILY (route: oral) Med Classific ation: Electroly te Balance-N utritiona l Products acetaminoph en 325 mg tablet 2020-08 00:00: 00 Yes [id number] PAIN Per instruc tions EVERY 6 HOURS Per instructio ns EVERY 6 HOURS (route: oral) Med Classific ation: Analgesic , Anti-infl ammatory or Antipyret ic Advair Diskus 250 mcg-50 mcg/dose powder for inhalation 2020-08 00:00: 00 Yes [id number] ASTHMA/COPD Per instruc tions 2 TIMES DAILY Per instructio ns 2 TIMES DAILY (route: inhalation ) Med Classific ation: Respirato ry Therapy Agents Aspirin Low Dose 81 mg tablet,collins yed release 08-19 00:00: 00 Yes [id number] PROPHYLAXIS Per instruc tions DAILY Per instructio ns DAILY (route: oral) Med Classific ation: Hematolog ical Agents Colace 100 mg capsule 08-19 00:00: 00 Yes [id number] CONSTIPATIO N Per instruc tions 2 TIMES DAILY Per instructio ns 2 TIMES DAILY (route: oral) Med Classific ation: Gastroint estinal Therapy Agents Eliquis 2.5 mg tablet 08-19 00:00: 00 Yes [id number] DVT PROPHYLAXIS Per instruc tions 2 TIMES DAILY Per instructio ns 2 TIMES DAILY (route: oral) Med Classific ation: Hematolog ical Agents ipratropium 0.5 mg-albutero l 3 mg (2.5 mg base)/3 mL nebulizatio n soln 2020-08 00:00: 00 Yes [id number] SOB/WHEEZIN G Per instruc tions NEEDED Per instructio ns NEEDED (route: inhalation ) Med Classific ation: Respirato ry Therapy Agents levobunolol 0.5 % eye drops 2020-08 00:00: 00 Yes [id number] GLAUCOMA Per instruc tions 2 TIMES DAILY Per instructio ns 2 TIMES DAILY (route: ophthalmic (eye)) Med Classific ation: Ophthalmi c Agents meclizine 25 mg tablet 2020-08 00:00: 00 Yes [id number] DIZZINESS Per instruc tions NEEDED Per instructio ns NEEDED (route: oral) Med Classific ation: Gastroint estinal Therapy Agents metformin 500 mg tablet 2020-08 00:00: 00 Yes [id number] DM Per instruc tions 2 TIMES DAILY Per instructio ns 2 TIMES DAILY (route: oral) Med Classific ation: Endocrine Milk of Magnesia 400 mg/5 mL oral suspension 08-19 00:00: 00 Yes [id number] CONSTIPATIO N Per instruc tions NEEDED Per instructio ns NEEDED (route: oral) Med Classific ation: Gastroint estinal Therapy Agents Miralax 17 gram/dose oral powder 08-19 00:00: 00 Yes [id number] BM MANAGEMENT Per instruc tions DAILY Per instructio ns DAILY (route: oral) Med Classific ation: Gastroint estinal Therapy Agents Proventil HFA 90 mcg/actuati on aerosol inhaler 2020-08 00:00: 00 Yes [id number] ASTHMA/COPD Per instruc tions 4 TIMES DAILY Per instructio ns 4 TIMES DAILY (route: inhalation ) Med Classific ation: Respirato ry Therapy Agents Senna Lax 8.6 mg tablet 08-19 00:00: 00 Yes [id number] CONSTIPATIO N Per instruc tions NEEDED Per instructio ns NEEDED (route: oral) Med Classific ation: Gastroint estinal Therapy Agents tramadol 50 mg tablet 08-19 00:00: 00 Yes [id number] PAIN Per instruc tions EVERY 6 HOURS [...] EMERGENCY SERVICES CALL US FIRST TO KEEP DRYWALL SPRAYER SYMPTOM REPORT FOR VISIBLE REFERENCE NOTIFY CLINICIAN/PHYSICIAN [...] EMERGENCY SERVICES CALL US FIRST TO KEEP DRYWALL SPRAYER SYMPTOM REPORT FOR VISIBLE REFERENCE NOTIFY CLINICIAN/PHYSICIAN [...] End Date/Time Encounter Type Admission Type Attending [facility] Facility Care Department Encounter ID Discharge Date Discharge Status Discharge Condition Discharge Reason Percent Goals Met 2021-08-21 00:00:00 2021-09-15 00:00:00 Outpatient NEW ADMISSION [facility]IN [facility]ON [facility] [id number] 2021-09-15 00:00:00 DISCHARGE TO HOME OR SELF CARE INDEPENDEN T WITH USE OF ASSISTIVE DEVICE HH ONLY - OUT PATIENT 100.00
[2024-07-25 14:30] LABS: Prothrombin Time Whole Bld POC 30.3 sec (11.1-13.5); ~PT, ~INR - Anti Coag Clinic 2.5 (0.9-1.1)
--- NOTE | 2024-07-25 14:44 | MHC.OFFVISCO ---
Intake Intake Visit Reasons: Anticoagulation Allergies No Known Allergies* Allergy (Uncoded 07/25/24 14:26) NKA Medication List - Last Reconciled 07/25/24 by Vannessa Borges RN acetaminophen 1,000 mg PO BID PRN albuterol sulfate 90 mcg/actuation (ProAir HFA) 2 puffs PO Q4H PRN apixaban (Eliquis) 1 tab PO BID carvedilol 1 tab PO BID dapagliflozin propanediol (Farxiga) 10 mg PO DAILY docusate sodium (Stool Softener) 1 cap PO BID ferrous sulfate 324 mg PO BIDWM gabapentin 700 mg PO TID glipizide 5 mg PO BID ipratropium-albuterol 0.5 mg-3 mg(2.5 mg base)/3 mL 3 mL inhalation Q6H PRN latanoprost 0.005% 1 drp ophthalmic-Right BEDTIME levobunolol 0.5% 1 drp ophthalmic-Right BID lisinopril 10 mg See Protocol PO DAILY meclizine 25 mg PO TID metformin 1 tab PO BID omeprazole 20 mg PO DAILY@0630 polyethylene glycol 3350 (Miralax) 17 grams PO BEDTIME potassium chloride ER 1 tab PO BID simvastatin 1 tab PO BEDTIME torsemide 20 mg PO DAILY warfarin 5 mg See Protocol PO DAILY Nursing Note INR: 2.5 in therapeutic range of 2-3 Medications and supplements reviewed No changes in health, diet, medications, or supplements, Denies any signs and symptoms of bleeding or bruising or clotting. Bleeding, bruising, clotting discussed Nutritional guidance given Dose: 5mg X6 days and 2.5mg X 1 day (Mon) F/U INR: 1 week Patient verbalizes understanding of instructions given Anti-Coag Initial Assessment Social Hx Patient Tobacco Use Status: Former Tobacco user Tobacco use type: Cigarette Smoking packs per day: 1 (quit approx 40 years ago) alcohol intake: never Cardiovascular Hx: CAD, MS, CHF, Arrhythmias and Other (pacemaker) Lung Disease HX: COPD Endocrine Hx: Diabetes Musculoskeletal Hx: Arthritis Blood Disorder Hx: Hyperlipidemia Hx: Kidney Disease Neurological Hx: Serious Head Injury Cancer HX: No Psych. 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
== END 2024-07-25 14:52 | disposition home or self-care (01) ==
LOC: HO.ACS 14:22
PROVIDERS: PCP Internal Medicine; Visit Provider Internal Medicine
DX: Z79.01 Long term (current) use of anticoagulants (principal)

== ENCOUNTER → 2024-07-25 14:22 | Outpatient (BNVA) | payer MEDICARE, SELFPAY | PROVIDERS: PCP Internal Medicine; Visit Provider Internal Medicine | DX: I48.19 Other persistent atrial fibrillation (principal); Z79.01 Long term (current) use of anticoagulants; Z51.81 Encounter for therapeutic drug level monitoring | CPT/HCPCS: 85610; 99211 ==

== ENCOUNTER 2024-08-05 13:57 | Outpatient (AMB) | payer MEDICARE, SELFPAY ==
--- OUTSIDE RECORDS SUMMARY | 2024-08-05 13:59 | XMS_ITS | Clinical Summary ---
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 OF ANTICOAGULAN TS Active 08-06 [...] 2020-08 00:00: 00 08-21 00:00 :00 No [id number] Per instruc tions TWICE DAILY Per instructio ns TWICE DAILY (route: topical) Med Classific ation: Dermatolo gical latanoprost 0.005 % eye drops 05-02 00:00: 00 Yes [id number] GLAUCOMA Per instruc tions BEDTIME Per instructio ns BEDTIME (route: ophthalmic (eye)) Med Classific ation: Ophthalmi c Agents hydrocodone 5 mg-acetamin ophen 325 mg tablet 2020-08 00:00: 00 08-21 00:00 :00 No [id number] PAIN Per instruc tions 4 TIMES DAILY Per instructio ns 4 TIMES DAILY (route: oral) Med Classific ation: Analgesic , Anti-infl ammatory or Antipyret ic oxycodone 5 mg tablet 08-17 00:00: 00 Yes [id number] PAIN Per instruc tions EVERY 6 HOURS Per instructio ns EVERY 6 HOURS (route: oral) Med Classific ation: Analgesic , Anti-infl ammatory or Antipyret ic furosemide 40 mg tablet 2020-08 00:00: 00 Yes [id number] DIURETIC Per instruc tions DAILY Per instructio ns DAILY (route: oral) Med Classific ation: Cardiovas cular Therapy Agents gabapentin 600 mg tablet 2020-08 00:00: 00 Yes [id number] NEUROPATHY Per instruc tions THREE TIMES DAILY Per instructio ns THREE TIMES DAILY (route: oral) Med Classific ation: Central Nervous System Agents omeprazole 20 mg capsule,del ayed release 2020-08 1-05 00:00: 00 Yes [id number] ACID INDIGESTION Per instruc tions DAILY Per instructio ns DAILY (route: oral) Med Classific ation: Gastroint estinal Therapy Agents simvastatin 20 mg tablet 04-20 00:00: 00 Yes [id number] HLD Per instruc tions DAILY Per instructio ns DAILY (route: oral) Med Classific ation: Cardiovas cular Therapy Agents carvedilol 6.25 mg tablet 2020-08 00:00: 00 Yes [id number] HTN Per instruc tions TWICE DAILY Per instructio ns TWICE DAILY (route: oral) Med Classific ation: Cardiovas cular Therapy Agents lisinopril 10 mg tablet 2020-08 00:00: 00 Yes [id number] HTN Per instruc tions ONCE DAILY Per instructio ns ONCE DAILY (route: oral) Med Classific ation: Cardiovas cular Therapy Agents potassium chloride ER 10 mEq tablet,exte nded release 2020-08 00:00: 00 Yes [id number] HYPOKALEMIA Per instruc tions TWICE DAILY Per instructio ns TWICE DAILY (route: oral) Med Classific ation: Electroly te Balance-N utritiona l Products acetaminoph en 325 mg tablet 2020-08 00:00: 00 Yes [id number] PAIN Per instruc tions EVERY 6 HOURS Per instructio ns EVERY 6 HOURS (route: oral) Med Classific ation: Analgesic , Anti-infl ammatory or Antipyret ic Advair Diskus 250 mcg-50 mcg/dose powder for inhalation 2020-08 00:00: 00 Yes [id number] ASTHMA/COPD Per instruc tions 2 TIMES DAILY Per instructio ns 2 TIMES DAILY (route: inhalation ) Med Classific ation: Respirato ry Therapy Agents Aspirin Low Dose 81 mg tablet,collins yed release 08-19 00:00: 00 Yes [id number] PROPHYLAXIS Per instruc tions DAILY Per instructio ns DAILY (route: oral) Med Classific ation: Hematolog ical Agents Colace 100 mg capsule 08-19 00:00: 00 Yes [id number] CONSTIPATIO N Per instruc tions 2 TIMES DAILY Per instructio ns 2 TIMES DAILY (route: oral) Med Classific ation: Gastroint estinal Therapy Agents Eliquis 2.5 mg tablet 08-19 00:00: 00 Yes [id number] DVT PROPHYLAXIS Per instruc tions 2 TIMES DAILY Per instructio ns 2 TIMES DAILY (route: oral) Med Classific ation: Hematolog ical Agents ipratropium 0.5 mg-albutero l 3 mg (2.5 mg base)/3 mL nebulizatio n soln 2020-08 00:00: 00 Yes [id number] SOB/WHEEZIN G Per instruc tions NEEDED Per instructio ns NEEDED (route: inhalation ) Med Classific ation: Respirato ry Therapy Agents levobunolol 0.5 % eye drops 2020-08 00:00: 00 Yes [id number] GLAUCOMA Per instruc tions 2 TIMES DAILY Per instructio ns 2 TIMES DAILY (route: ophthalmic (eye)) Med Classific ation: Ophthalmi c Agents meclizine 25 mg tablet 2020-08 00:00: 00 Yes [id number] DIZZINESS Per instruc tions NEEDED Per instructio ns NEEDED (route: oral) Med Classific ation: Gastroint estinal Therapy Agents metformin 500 mg tablet 2020-08 00:00: 00 Yes [id number] DM Per instruc tions 2 TIMES DAILY Per instructio ns 2 TIMES DAILY (route: oral) Med Classific ation: Endocrine Milk of Magnesia 400 mg/5 mL oral suspension 08-19 00:00: 00 Yes [id number] CONSTIPATIO N Per instruc tions NEEDED Per instructio ns NEEDED (route: oral) Med Classific ation: Gastroint estinal Therapy Agents Miralax 17 gram/dose oral powder 08-19 00:00: 00 Yes [id number] BM MANAGEMENT Per instruc tions DAILY Per instructio ns DAILY (route: oral) Med Classific ation: Gastroint estinal Therapy Agents Proventil HFA 90 mcg/actuati on aerosol inhaler 2020-08 00:00: 00 Yes [id number] ASTHMA/COPD Per instruc tions 4 TIMES DAILY Per instructio ns 4 TIMES DAILY (route: inhalation ) Med Classific ation: Respirato ry Therapy Agents Senna Lax 8.6 mg tablet 08-19 00:00: 00 Yes [id number] CONSTIPATIO N Per instruc tions NEEDED Per instructio ns NEEDED (route: oral) Med Classific ation: Gastroint estinal Therapy Agents tramadol 50 mg tablet 08-19 00:00: 00 Yes [id number] PAIN Per instruc tions EVERY 6 HOURS [...] EMERGENCY SERVICES CALL US FIRST TO KEEP PIPE FITTER [place]MONIA SYMPTOM REPORT FOR VISIBLE REFERENCE NOTIFY CLINICIAN/PHYSICIAN [...] EMERGENCY SERVICES CALL US FIRST TO KEEP PIPE FITTER [place]IA SYMPTOM REPORT FOR VISIBLE REFERENCE NOTIFY CLINICIAN/PHYSICIAN [...] End Date/Time Encounter Type Admission Type Attending [facility] Facility Care Department Encounter ID Discharge Date Discharge Status Discharge Condition Discharge Reason Percent Goals Met 2021-08-21 00:00:00 2021-09-15 00:00:00 Outpatient NEW ADMISSION BERTIN SON [facility] [id number] 2021-09-15 00:00:00 DISCHARGE TO HOME OR SELF CARE INDEPENDEN T WITH USE OF ASSISTIVE DEVICE HH ONLY - OUT PATIENT 100.00
[2024-08-05 14:03] LABS: Prothrombin Time Whole Bld POC 17.9 sec (11.1-13.5); ~PT, ~INR - Anti Coag Clinic 1.5 (0.9-1.1)
--- NOTE | 2024-08-05 14:28 | MHC.OFFVISCO ---
Intake Intake Visit Reasons: Anticoagulation Allergies No Known Allergies* Allergy (Uncoded 08/05/24 13:57) NKA Medication List - Last Reconciled 08/05/24 by Vannessa Borges RN acetaminophen 1,000 mg PO BID PRN albuterol sulfate 90 mcg/actuation (ProAir HFA) 2 puffs PO Q4H PRN apixaban (Eliquis) 1 tab PO BID carvedilol 1 tab PO BID dapagliflozin propanediol (Farxiga) 10 mg PO DAILY docusate sodium (Stool Softener) 1 cap PO BID ferrous sulfate 324 mg PO BIDWM gabapentin 700 mg PO TID glipizide 5 mg PO BID ipratropium-albuterol 0.5 mg-3 mg(2.5 mg base)/3 mL 3 mL inhalation Q6H PRN latanoprost 0.005% 1 drp ophthalmic-Right BEDTIME levobunolol 0.5% 1 drp ophthalmic-Right BID lisinopril 10 mg See Protocol PO DAILY meclizine 25 mg PO TID metformin 1 tab PO BID omeprazole 20 mg PO DAILY@0630 polyethylene glycol 3350 (Miralax) 17 grams PO BEDTIME potassium chloride ER 1 tab PO BID simvastatin 1 tab PO BEDTIME torsemide 20 mg PO DAILY warfarin 5 mg See Protocol PO DAILY Nursing Note INR: 1.5?out of therapeutic range of 2-3 Pt denies a missed dose but states he had otilia greens. Medications and supplements reviewed Patient status: no changes Medications or supplements: no changes Diet: no changes Denies any signs and symptoms of bleeding or clotting or unusual bruising Bleeding, bruising, clotting discussed Nutritional guidance given: avoid greens Dose: 7.5mg X 2 days F/U INR Date : 2 days Patient verbalizing understanding of instructions given. T/C to Dr Chang. Dr Gregg escobar. Spoke to him and reported critical value INR 1.5 with dosing plan and next retest date. Anti-Coag Initial Assessment Social Hx Patient Tobacco Use Status: Former Tobacco user Tobacco use type: Cigarette Smoking packs per day: 1 (quit approx 40 years ago) alcohol intake: never Cardiovascular Hx: CAD, [place], CHF, Arrhythmias and Other (pacemaker) Lung Disease HX: COPD Endocrine Hx: Diabetes Musculoskeletal Hx: Arthritis Blood Disorder Hx: Hyperlipidemia Hx: Kidney Disease Neurological Hx: Serious Head Injury Cancer HX: No Psych. 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
== END 2024-08-05 14:37 | disposition home or self-care (01) ==
LOC: HO.ACS 13:57
PROVIDERS: PCP Internal Medicine; Visit Provider Internal Medicine
DX: Z79.01 Long term (current) use of anticoagulants (principal)

== ENCOUNTER → 2024-08-05 13:57 | Outpatient (BNVA) | payer MEDICARE, SELFPAY | PROVIDERS: PCP Internal Medicine; Visit Provider Internal Medicine | DX: I48.21 Permanent atrial fibrillation (principal); Z79.01 Long term (current) use of anticoagulants; Z51.81 Encounter for therapeutic drug level monitoring | CPT/HCPCS: 85610; 99211 ==

== ENCOUNTER 2024-08-07 13:59 | Outpatient (AMB) | payer MEDICARE, SELFPAY ==
[2024-08-07 14:15] LABS: Prothrombin Time Whole Bld POC 27.8 sec (11.1-13.5); ~PT, ~INR - Anti Coag Clinic 2.3 (0.9-1.1)
--- NOTE | 2024-08-07 14:41 | MHC.OFFVISCO ---
Intake Intake Visit Reasons: Anticoagulation Allergies No Known Allergies* Allergy (Uncoded 08/07/24 14:00) NKA Medication List - Last Reconciled 08/07/24 by Leanna Drake RN acetaminophen 1,000 mg PO BID PRN albuterol sulfate 90 mcg/actuation (ProAir HFA) 2 puffs PO Q4H PRN carvedilol 1 tab PO BID dapagliflozin propanediol (Farxiga) 10 mg PO DAILY docusate sodium (Stool Softener) 1 cap PO BID gabapentin 700 mg PO TID glipizide 5 mg PO BID ipratropium-albuterol 0.5 mg-3 mg(2.5 mg base)/3 mL 3 mL inhalation Q6H PRN latanoprost 0.005% 1 drp ophthalmic-Right BEDTIME levobunolol 0.5% 1 drp ophthalmic-Right BID meclizine 25 mg PO TID omeprazole 20 mg PO DAILY@0630 polyethylene glycol 3350 (Miralax) 17 grams PO BEDTIME potassium chloride ER 1 tab PO BID simvastatin 1 tab PO BEDTIME torsemide 20 mg PO DAILY warfarin 5 mg See Protocol PO DAILY Nursing Note INR: 2.3 in therapeutic range Medications and supplements reviewed- Pt to check his med list at home to see if he is on lisinopril and metformin any more - pt list and EMR list differ Pt states his daughter is very ill at home unable to assist him to care for home and meal prep, number given for [facility] services because he is worried about her depression pt stated he has challenges with home care and getting to the store and shopping- pt has meals on wheels - and states he is going to go to the senior center to see if they can help him obtain services, a telephone number was given for senior services for him to call to ask for help also. this nurse attempted to call PCP but office was closed - will call tomorrow or Sunday to see if a request for a home health aid can be ordered. He has had a few days of abd discomfort and frequent loose- pain yesterday a few times, has not eaten today, enc him to call PCP if worsens, may be a virus but still enc to call MD if worsens, Denies any signs and symptoms of bleeding or bruising or clotting. Bleeding, bruising, clotting discussed Nutritional guidance given - cont to eat a mix of fruits and vegertables Dose: 5mg daily F/U INR: 1 week Patient verbalizes understanding of instructions given and was able to read with difficulty he is to take 5mg daily. Anti-Coag Initial Assessment Social Hx Patient Tobacco Use Status: Former Tobacco user Tobacco use type: Cigarette Smoking packs per day: 1 (quit approx 40 years ago) alcohol intake: never Cardiovascular Hx: CAD, [place], CHF, Arrhythmias and Other (pacemaker) Lung Disease HX: COPD Endocrine Hx: Diabetes Musculoskeletal Hx: Arthritis Blood Disorder Hx: Hyperlipidemia Hx: Kidney Disease Neurological Hx: Serious Head Injury Cancer HX: No Psych. 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
--- OUTSIDE RECORDS SUMMARY | 2024-08-07 15:25 | XMS_ITS | Clinical Summary ---
Author Organization Unknown Care Team Providers Care Fundraising Manager Name Role Phone TOPHER PEREZ, JUAN Unavailable Unavailable ADELAIDA PT, BERTIN Unavailable Unavailable JOSE MIGUEL OT, SALLIE Unavailable Unavailable Payers Payer Name Policy Type Policy Number Effective Date Expira tion Date MEDICARE.NGS.PDGM [id number] Problems Condition Name Condition Details Condition Category [...] ARTIFICIAL KNEE JOINT Active 2020-08 00:00: 00 SENIOR CARE (CURRENT) USE OF ORAL HYPOGLYCEMIC DRUGS Active 08-06 00:00: 00 PRIVATE CHEF (CURRENT) USE OF ANTICOAGULAN TS Active 08-06 [...] 2020-08 00:00: 00 08-21 00:00 :00 No [id number] Per instruc tions TWICE DAILY Per instructio ns TWICE DAILY (route: topical) Med Classific ation: Dermatolo gical latanoprost 0.005 % eye drops 05-02 00:00: 00 Yes [id number] GLAUCOMA Per instruc tions BEDTIME Per instructio ns BEDTIME (route: ophthalmic (eye)) Med Classific ation: Ophthalmi c Agents hydrocodone 5 mg-acetamin ophen 325 mg tablet 2020-08 00:00: 00 08-21 00:00 :00 No [id number] PAIN Per instruc tions 4 TIMES DAILY Per instructio ns 4 TIMES DAILY (route: oral) Med Classific ation: Analgesic , Anti-infl ammatory or Antipyret ic oxycodone 5 mg tablet 08-17 00:00: 00 Yes [id number] PAIN Per instruc tions EVERY 6 HOURS Per instructio ns EVERY 6 HOURS (route: oral) Med Classific ation: Analgesic , Anti-infl ammatory or Antipyret ic furosemide 40 mg tablet 2020-08 00:00: 00 Yes [id number] DIURETIC Per instruc tions DAILY Per instructio ns DAILY (route: oral) Med Classific ation: Cardiovas cular Therapy Agents gabapentin 600 mg tablet 2020-08 00:00: 00 Yes [id number] NEUROPATHY Per instruc tions THREE TIMES DAILY Per instructio ns THREE TIMES DAILY (route: oral) Med Classific ation: Central Nervous System Agents omeprazole 20 mg capsule,del ayed release 2020-08 1-05 00:00: 00 Yes [id number] ACID INDIGESTION Per instruc tions DAILY Per instructio ns DAILY (route: oral) Med Classific ation: Gastroint estinal Therapy Agents simvastatin 20 mg tablet 04-20 00:00: 00 Yes [id number] HLD Per instruc tions DAILY Per instructio ns DAILY (route: oral) Med Classific ation: Cardiovas cular Therapy Agents carvedilol 6.25 mg tablet 2020-08 00:00: 00 Yes [id number] HTN Per instruc tions TWICE DAILY Per instructio ns TWICE DAILY (route: oral) Med Classific ation: Cardiovas cular Therapy Agents lisinopril 10 mg tablet 2020-08 00:00: 00 Yes [id number] HTN Per instruc tions ONCE DAILY Per instructio ns ONCE DAILY (route: oral) Med Classific ation: Cardiovas cular Therapy Agents potassium chloride ER 10 mEq tablet,exte nded release 2020-08 00:00: 00 Yes [id number] HYPOKALEMIA Per instruc tions TWICE DAILY Per instructio ns TWICE DAILY (route: oral) Med Classific ation: Electroly te Balance-N utritiona l Products acetaminoph en 325 mg tablet 2020-08 00:00: 00 Yes [id number] PAIN Per instruc tions EVERY 6 HOURS Per instructio ns EVERY 6 HOURS (route: oral) Med Classific ation: Analgesic , Anti-infl ammatory or Antipyret ic Advair Diskus 250 mcg-50 mcg/dose powder for inhalation 2020-08 00:00: 00 Yes [id number] ASTHMA/COPD Per instruc tions 2 TIMES DAILY Per instructio ns 2 TIMES DAILY (route: inhalation ) Med Classific ation: Respirato ry Therapy Agents Aspirin Low Dose 81 mg tablet,collins yed release 08-19 00:00: 00 Yes [id number] PROPHYLAXIS Per instruc tions DAILY Per instructio ns DAILY (route: oral) Med Classific ation: Hematolog ical Agents Colace 100 mg capsule 08-19 00:00: 00 Yes [id number] CONSTIPATIO N Per instruc tions 2 TIMES DAILY Per instructio ns 2 TIMES DAILY (route: oral) Med Classific ation: Gastroint estinal Therapy Agents Eliquis 2.5 mg tablet 08-19 00:00: 00 Yes [id number] DVT PROPHYLAXIS Per instruc tions 2 TIMES DAILY Per instructio ns 2 TIMES DAILY (route: oral) Med Classific ation: Hematolog ical Agents ipratropium 0.5 mg-albutero l 3 mg (2.5 mg base)/3 mL nebulizatio n soln 2020-08 00:00: 00 Yes [id number] SOB/WHEEZIN G Per instruc tions NEEDED Per instructio ns NEEDED (route: inhalation ) Med Classific ation: Respirato ry Therapy Agents levobunolol 0.5 % eye drops 2020-08 00:00: 00 Yes [id number] GLAUCOMA Per instruc tions 2 TIMES DAILY Per instructio ns 2 TIMES DAILY (route: ophthalmic (eye)) Med Classific ation: Ophthalmi c Agents meclizine 25 mg tablet 2020-08 00:00: 00 Yes [id number] DIZZINESS Per instruc tions NEEDED Per instructio ns NEEDED (route: oral) Med Classific ation: Gastroint estinal Therapy Agents metformin 500 mg tablet 2020-08 00:00: 00 Yes [id number] DM Per instruc tions 2 TIMES DAILY Per instructio ns 2 TIMES DAILY (route: oral) Med Classific ation: Endocrine Milk of Magnesia 400 mg/5 mL oral suspension 08-19 00:00: 00 Yes [id number] CONSTIPATIO N Per instruc tions NEEDED Per instructio ns NEEDED (route: oral) Med Classific ation: Gastroint estinal Therapy Agents Miralax 17 gram/dose oral powder 08-19 00:00: 00 Yes [id number] BM MANAGEMENT Per instruc tions DAILY Per instructio ns DAILY (route: oral) Med Classific ation: Gastroint estinal Therapy Agents Proventil HFA 90 mcg/actuati on aerosol inhaler 2020-08 00:00: 00 Yes [id number] ASTHMA/COPD Per instruc tions 4 TIMES DAILY Per instructio ns 4 TIMES DAILY (route: inhalation ) Med Classific ation: Respirato ry Therapy Agents Senna Lax 8.6 mg tablet 08-19 00:00: 00 Yes [id number] CONSTIPATIO N Per instruc tions NEEDED Per instructio ns NEEDED (route: oral) Med Classific ation: Gastroint estinal Therapy Agents tramadol 50 mg tablet 08-19 00:00: 00 Yes [id number] PAIN Per instruc tions EVERY 6 HOURS [...] EMERGENCY SERVICES CALL US FIRST TO KEEP COOLER DELIVERER SYMPTOM REPORT FOR VISIBLE REFERENCE NOTIFY CLINICIAN/PHYSICIAN [...] EMERGENCY SERVICES CALL US FIRST TO KEEP COOLER DELIVERER SYMPTOM REPORT FOR VISIBLE REFERENCE NOTIFY CLINICIAN/PHYSICIAN [...] End Date/Time Encounter Type Admission Type Attending [facility] Facility Care Department Encounter ID Discharge Date Discharge Status Discharge Condition Discharge Reason Percent Goals Met 2021-08-21 00:00:00 2021-09-15 00:00:00 Outpatient NEW ADMISSION BERTIN [facility] [id number] 2021-09-15 00:00:00 DISCHARGE TO HOME OR SELF CARE INDEPENDEN T WITH USE OF ASSISTIVE DEVICE HH ONLY - OUT PATIENT 100.00
--- OUTSIDE RECORDS SUMMARY | 2024-08-07 15:26 | XMS_ITS | Clinical Summary ---
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 TS Active 08-06 [...] 2020-08 00:00: 00 08-21 00:00 :00 No [id number] Per instruc tions TWICE DAILY Per instructio ns TWICE DAILY (route: topical) Med Classific ation: Dermatolo gical latanoprost 0.005 % eye drops 05-02 00:00: 00 Yes [id number] GLAUCOMA Per instruc tions BEDTIME Per instructio ns BEDTIME (route: ophthalmic (eye)) Med Classific ation: Ophthalmi c Agents hydrocodone 5 mg-acetamin ophen 325 mg tablet 2020-08 00:00: 00 08-21 00:00 :00 No [id number] PAIN Per instruc tions 4 TIMES DAILY Per instructio ns 4 TIMES DAILY (route: oral) Med Classific ation: Analgesic , Anti-infl ammatory or Antipyret ic oxycodone 5 mg tablet 08-17 00:00: 00 Yes [id number] PAIN Per instruc tions EVERY 6 HOURS Per instructio ns EVERY 6 HOURS (route: oral) Med Classific ation: Analgesic , Anti-infl ammatory or Antipyret ic furosemide 40 mg tablet 2020-08 00:00: 00 Yes [id number] DIURETIC Per instruc tions DAILY Per instructio ns DAILY (route: oral) Med Classific ation: Cardiovas cular Therapy Agents gabapentin 600 mg tablet 2020-08 00:00: 00 Yes [id number] NEUROPATHY Per instruc tions THREE TIMES DAILY Per instructio ns THREE TIMES DAILY (route: oral) Med Classific ation: Central Nervous System Agents omeprazole 20 mg capsule,del ayed release 2020-08 1-05 00:00: 00 Yes [id number] ACID INDIGESTION Per instruc tions DAILY Per instructio ns DAILY (route: oral) Med Classific ation: Gastroint estinal Therapy Agents simvastatin 20 mg tablet 04-20 00:00: 00 Yes [id number] HLD Per instruc tions DAILY Per instructio ns DAILY (route: oral) Med Classific ation: Cardiovas cular Therapy Agents carvedilol 6.25 mg tablet 2020-08 00:00: 00 Yes [id number] HTN Per instruc tions TWICE DAILY Per instructio ns TWICE DAILY (route: oral) Med Classific ation: Cardiovas cular Therapy Agents lisinopril 10 mg tablet 2020-08 00:00: 00 Yes [id number] HTN Per instruc tions ONCE DAILY Per instructio ns ONCE DAILY (route: oral) Med Classific ation: Cardiovas cular Therapy Agents potassium chloride ER 10 mEq tablet,exte nded release 2020-08 00:00: 00 Yes [id number] HYPOKALEMIA Per instruc tions TWICE DAILY Per instructio ns TWICE DAILY (route: oral) Med Classific ation: Electroly te Balance-N utritiona l Products acetaminoph en 325 mg tablet 2020-08 00:00: 00 Yes [id number] PAIN Per instruc tions EVERY 6 HOURS Per instructio ns EVERY 6 HOURS (route: oral) Med Classific ation: Analgesic , Anti-infl ammatory or Antipyret ic Advair Diskus 250 mcg-50 mcg/dose powder for inhalation 2020-08 00:00: 00 Yes [id number] ASTHMA/COPD Per instruc tions 2 TIMES DAILY Per instructio ns 2 TIMES DAILY (route: inhalation ) Med Classific ation: Respirato ry Therapy Agents Aspirin Low Dose 81 mg tablet,collins yed release 08-19 00:00: 00 Yes [id number] PROPHYLAXIS Per instruc tions DAILY Per instructio ns DAILY (route: oral) Med Classific ation: Hematolog ical Agents Colace 100 mg capsule 08-19 00:00: 00 Yes [id number] CONSTIPATIO N Per instruc tions 2 TIMES DAILY Per instructio ns 2 TIMES DAILY (route: oral) Med Classific ation: Gastroint estinal Therapy Agents Eliquis 2.5 mg tablet 08-19 00:00: 00 Yes [id number] DVT PROPHYLAXIS Per instruc tions 2 TIMES DAILY Per instructio ns 2 TIMES DAILY (route: oral) Med Classific ation: Hematolog ical Agents ipratropium 0.5 mg-albutero l 3 mg (2.5 mg base)/3 mL nebulizatio n soln 2020-08 00:00: 00 Yes [id number] SOB/WHEEZIN G Per instruc tions NEEDED Per instructio ns NEEDED (route: inhalation ) Med Classific ation: Respirato ry Therapy Agents levobunolol 0.5 % eye drops 2020-08 00:00: 00 Yes [id number] GLAUCOMA Per instruc tions 2 TIMES DAILY Per instructio ns 2 TIMES DAILY (route: ophthalmic (eye)) Med Classific ation: Ophthalmi c Agents meclizine 25 mg tablet 2020-08 00:00: 00 Yes [id number] DIZZINESS Per instruc tions NEEDED Per instructio ns NEEDED (route: oral) Med Classific ation: Gastroint estinal Therapy Agents metformin 500 mg tablet 2020-08 00:00: 00 Yes [id number] DM Per instruc tions 2 TIMES DAILY Per instructio ns 2 TIMES DAILY (route: oral) Med Classific ation: Endocrine Milk of Magnesia 400 mg/5 mL oral suspension 08-19 00:00: 00 Yes [id number] CONSTIPATIO N Per instruc tions NEEDED Per instructio ns NEEDED (route: oral) Med Classific ation: Gastroint estinal Therapy Agents Miralax 17 gram/dose oral powder 08-19 00:00: 00 Yes [id number] BM MANAGEMENT Per instruc tions DAILY Per instructio ns DAILY (route: oral) Med Classific ation: Gastroint estinal Therapy Agents Proventil HFA 90 mcg/actuati on aerosol inhaler 2020-08 00:00: 00 Yes [id number] ASTHMA/COPD Per instruc tions 4 TIMES DAILY Per instructio ns 4 TIMES DAILY (route: inhalation ) Med Classific ation: Respirato ry Therapy Agents Senna Lax 8.6 mg tablet 08-19 00:00: 00 Yes [id number] CONSTIPATIO N Per instruc tions NEEDED Per instructio ns NEEDED (route: oral) Med Classific ation: Gastroint estinal Therapy Agents tramadol 50 mg tablet 08-19 00:00: 00 Yes [id number] PAIN Per instruc tions EVERY 6 HOURS [...] EMERGENCY SERVICES CALL US FIRST TO KEEP AUTOMATIC OPERATOR SYMPTOM REPORT FOR VISIBLE REFERENCE NOTIFY CLINICIAN/PHYSICIAN [...] EMERGENCY SERVICES CALL US FIRST TO KEEP AUTOMATIC OPERATOR SYMPTOM REPORT FOR VISIBLE REFERENCE NOTIFY CLINICIAN/PHYSICIAN [...] 2021-09-15 00:00:00 Outpatient NEW ADMISSION BERTIN [facility] [id number] 2021-09-15 00:00:00 DISCHARGE TO HOME OR SELF CARE INDEPENDEN T WITH USE OF ASSISTIVE DEVICE HH ONLY - OUT PATIENT 100.00
== END 2024-08-07 15:07 | disposition home or self-care (01) ==
LOC: HO.ACS 13:59
PROVIDERS: PCP Internal Medicine; Visit Provider Internal Medicine
DX: Z79.01 Long term (current) use of anticoagulants (principal)

== ENCOUNTER → 2024-08-07 13:59 | Outpatient (BNVA) | payer MEDICARE, SELFPAY | PROVIDERS: PCP Internal Medicine; Visit Provider Internal Medicine | DX: I48.21 Permanent atrial fibrillation (principal); Z79.01 Long term (current) use of anticoagulants; Z51.81 Encounter for therapeutic drug level monitoring | CPT/HCPCS: 85610; 99211 ==

== ENCOUNTER 2024-08-18 13:46 | Outpatient (REF) | payer MEDICARE, SELFPAY ==
[2024-08-18 15:03] LABS: Hematocrit 43.2 % (42.0-52.0); Mean Corpuscular HGB Conc 32.4 g/dl (31.0-36.0); Mean Corpuscular Hemoglobin 28.7 pg (27.0-33.0); Mean Corpuscular Volume 88.7 fL (80.0-98.0); Mean Platelet Volume 9.9 fL (9.4-12.4); Red Blood Count 4.87 X10*6/uL (4.60-5.80); Red Cell Distribution Width 15.2 % (11.0-16.0)
[2024-08-18 15:14] LABS: Platelet Count 157 X10*3/uL (160-400); Prothrombin Time 63.9 SEC (10.9-12.4)
[2024-08-18 15:15] LABS: INTERNATIONAL NORM RATIO 5.5 (0.9-1.1)
[2024-08-18 15:45] LABS: Anion Gap 10 (12-20); Blood Urea Nitrogen 33 mg/dL (9-16); Calcium 8.3 mg/dL (8.4-10.2); Carbon Dioxide 31 mmol/L (22-29); Chloride 102 mmol/L (96-108); Estimated Glomerular Filt Rate 28; Glucose Random 349 mg/dL (60-115); Potassium 4.5 mmol/L (3.3-5.1); Sodium 138 mmol/L (135-145)
--- OUTSIDE RECORDS SUMMARY | 2024-08-18 17:49 | XMS_ITS | Clinical Summary ---
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 Active 08-06 [...] 2020-08 00:00: 00 08-21 00:00 :00 No [id number] Per instruc tions TWICE DAILY Per instructio ns TWICE DAILY (route: topical) Med Classific ation: Dermatolo gical latanoprost 0.005 % eye drops 05-02 00:00: 00 Yes [id number] GLAUCOMA Per instruc tions BEDTIME Per instructio ns BEDTIME (route: ophthalmic (eye)) Med Classific ation: Ophthalmi c Agents hydrocodone 5 mg-acetamin ophen 325 mg tablet 2020-08 00:00: 00 08-21 00:00 :00 No [id number] PAIN Per instruc tions 4 TIMES DAILY Per instructio ns 4 TIMES DAILY (route: oral) Med Classific ation: Analgesic , Anti-infl ammatory or Antipyret ic oxycodone 5 mg tablet 08-17 00:00: 00 Yes [id number] PAIN Per instruc tions EVERY 6 HOURS Per instructio ns EVERY 6 HOURS (route: oral) Med Classific ation: Analgesic , Anti-infl ammatory or Antipyret ic furosemide 40 mg tablet 2020-08 00:00: 00 Yes [id number] DIURETIC Per instruc tions DAILY Per instructio ns DAILY (route: oral) Med Classific ation: Cardiovas cular Therapy Agents gabapentin 600 mg tablet 2020-08 00:00: 00 Yes [id number] NEUROPATHY Per instruc tions THREE TIMES DAILY Per instructio ns THREE TIMES DAILY (route: oral) Med Classific ation: Central Nervous System Agents omeprazole 20 mg capsule,del ayed release 2020-08 1-05 00:00: 00 Yes [id number] ACID INDIGESTION Per instruc tions DAILY Per instructio ns DAILY (route: oral) Med Classific ation: Gastroint estinal Therapy Agents simvastatin 20 mg tablet 04-20 00:00: 00 Yes [id number] HLD Per instruc tions DAILY Per instructio ns DAILY (route: oral) Med Classific ation: Cardiovas cular Therapy Agents carvedilol 6.25 mg tablet 2020-08 00:00: 00 Yes [id number] HTN Per instruc tions TWICE DAILY Per instructio ns TWICE DAILY (route: oral) Med Classific ation: Cardiovas cular Therapy Agents lisinopril 10 mg tablet 2020-08 00:00: 00 Yes [id number] HTN Per instruc tions ONCE DAILY Per instructio ns ONCE DAILY (route: oral) Med Classific ation: Cardiovas cular Therapy Agents potassium chloride ER 10 mEq tablet,exte nded release 2020-08 00:00: 00 Yes [id number] HYPOKALEMIA Per instruc tions TWICE DAILY Per instructio ns TWICE DAILY (route: oral) Med Classific ation: Electroly te Balance-N utritiona l Products acetaminoph en 325 mg tablet 2020-08 00:00: 00 Yes [id number] PAIN Per instruc tions EVERY 6 HOURS Per instructio ns EVERY 6 HOURS (route: oral) Med Classific ation: Analgesic , Anti-infl ammatory or Antipyret ic Advair Diskus 250 mcg-50 mcg/dose powder for inhalation 2020-08 00:00: 00 Yes [id number] ASTHMA/COPD Per instruc tions 2 TIMES DAILY Per instructio ns 2 TIMES DAILY (route: inhalation ) Med Classific ation: Respirato ry Therapy Agents Aspirin Low Dose 81 mg tablet,collins yed release 08-19 00:00: 00 Yes [id number] PROPHYLAXIS Per instruc tions DAILY Per instructio ns DAILY (route: oral) Med Classific ation: Hematolog ical Agents Colace 100 mg capsule 08-19 00:00: 00 Yes [id number] CONSTIPATIO N Per instruc tions 2 TIMES DAILY Per instructio ns 2 TIMES DAILY (route: oral) Med Classific ation: Gastroint estinal Therapy Agents Eliquis 2.5 mg tablet 08-19 00:00: 00 Yes [id number] DVT PROPHYLAXIS Per instruc tions 2 TIMES DAILY Per instructio ns 2 TIMES DAILY (route: oral) Med Classific ation: Hematolog ical Agents ipratropium 0.5 mg-albutero l 3 mg (2.5 mg base)/3 mL nebulizatio n soln 2020-08 00:00: 00 Yes [id number] SOB/WHEEZIN G Per instruc tions NEEDED Per instructio ns NEEDED (route: inhalation ) Med Classific ation: Respirato ry Therapy Agents levobunolol 0.5 % eye drops 2020-08 00:00: 00 Yes [id number] GLAUCOMA Per instruc tions 2 TIMES DAILY Per instructio ns 2 TIMES DAILY (route: ophthalmic (eye)) Med Classific ation: Ophthalmi c Agents meclizine 25 mg tablet 2020-08 00:00: 00 Yes [id number] DIZZINESS Per instruc tions NEEDED Per instructio ns NEEDED (route: oral) Med Classific ation: Gastroint estinal Therapy Agents metformin 500 mg tablet 2020-08 00:00: 00 Yes [id number] DM Per instruc tions 2 TIMES DAILY Per instructio ns 2 TIMES DAILY (route: oral) Med Classific ation: Endocrine Milk of Magnesia 400 mg/5 mL oral suspension 08-19 00:00: 00 Yes [id number] CONSTIPATIO N Per instruc tions NEEDED Per instructio ns NEEDED (route: oral) Med Classific ation: Gastroint estinal Therapy Agents Miralax 17 gram/dose oral powder 08-19 00:00: 00 Yes [id number] BM MANAGEMENT Per instruc tions DAILY Per instructio ns DAILY (route: oral) Med Classific ation: Gastroint estinal Therapy Agents Proventil HFA 90 mcg/actuati on aerosol inhaler 2020-08 00:00: 00 Yes [id number] ASTHMA/COPD Per instruc tions 4 TIMES DAILY Per instructio ns 4 TIMES DAILY (route: inhalation ) Med Classific ation: Respirato ry Therapy Agents Senna Lax 8.6 mg tablet 08-19 00:00: 00 Yes [id number] CONSTIPATIO N Per instruc tions NEEDED Per instructio ns NEEDED (route: oral) Med Classific ation: Gastroint estinal Therapy Agents tramadol 50 mg tablet 08-19 00:00: 00 Yes [id number] PAIN Per instruc tions EVERY 6 HOURS [...] EMERGENCY SERVICES CALL US FIRST TO KEEP SEAM RUBBING MACHINE OPERATOR SYMPTOM REPORT FOR VISIBLE REFERENCE NOTIFY [...] EMERGENCY SERVICES CALL US FIRST TO KEEP SEAM RUBBING MACHINE OPERATOR SYMPTOM REPORT FOR VISIBLE REFERENCE NOTIFY [...] Outpatient NEW ADMISSION BERTIN SON [facility] [id number] 2021-09-15 00:00:00 DISCHARGE TO HOME OR SELF CARE INDEPENDEN T WITH USE OF ASSISTIVE DEVICE HH ONLY - OUT PATIENT 100.00
--- OUTSIDE RECORDS SUMMARY | 2024-08-18 17:49 | XMS_ITS | Clinical Summary ---
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 Active 08-06 [...] 2020-08 00:00: 00 08-21 00:00 :00 No [id number] Per instruc tions TWICE DAILY Per instructio ns TWICE DAILY (route: topical) Med Classific ation: Dermatolo gical latanoprost 0.005 % eye drops 05-02 00:00: 00 Yes [id number] GLAUCOMA Per instruc tions BEDTIME Per instructio ns BEDTIME (route: ophthalmic (eye)) Med Classific ation: Ophthalmi c Agents hydrocodone 5 mg-acetamin ophen 325 mg tablet 2020-08 00:00: 00 08-21 00:00 :00 No [id number] PAIN Per instruc tions 4 TIMES DAILY Per instructio ns 4 TIMES DAILY (route: oral) Med Classific ation: Analgesic , Anti-infl ammatory or Antipyret ic oxycodone 5 mg tablet 08-17 00:00: 00 Yes [id number] PAIN Per instruc tions EVERY 6 HOURS Per instructio ns EVERY 6 HOURS (route: oral) Med Classific ation: Analgesic , Anti-infl ammatory or Antipyret ic furosemide 40 mg tablet 2020-08 00:00: 00 Yes [id number] DIURETIC Per instruc tions DAILY Per instructio ns DAILY (route: oral) Med Classific ation: Cardiovas cular Therapy Agents gabapentin 600 mg tablet 2020-08 00:00: 00 Yes [id number] NEUROPATHY Per instruc tions THREE TIMES DAILY Per instructio ns THREE TIMES DAILY (route: oral) Med Classific ation: Central Nervous System Agents omeprazole 20 mg capsule,del ayed release 2020-08 1-05 00:00: 00 Yes [id number] ACID INDIGESTION Per instruc tions DAILY Per instructio ns DAILY (route: oral) Med Classific ation: Gastroint estinal Therapy Agents simvastatin 20 mg tablet 04-20 00:00: 00 Yes [id number] HLD Per instruc tions DAILY Per instructio ns DAILY (route: oral) Med Classific ation: Cardiovas cular Therapy Agents carvedilol 6.25 mg tablet 2020-08 00:00: 00 Yes [id number] HTN Per instruc tions TWICE DAILY Per instructio ns TWICE DAILY (route: oral) Med Classific ation: Cardiovas cular Therapy Agents lisinopril 10 mg tablet 2020-08 00:00: 00 Yes [id number] HTN Per instruc tions ONCE DAILY Per instructio ns ONCE DAILY (route: oral) Med Classific ation: Cardiovas cular Therapy Agents potassium chloride ER 10 mEq tablet,exte nded release 2020-08 00:00: 00 Yes [id number] HYPOKALEMIA Per instruc tions TWICE DAILY Per instructio ns TWICE DAILY (route: oral) Med Classific ation: Electroly te Balance-N utritiona l Products acetaminoph en 325 mg tablet 2020-08 00:00: 00 Yes [id number] PAIN Per instruc tions EVERY 6 HOURS Per instructio ns EVERY 6 HOURS (route: oral) Med Classific ation: Analgesic , Anti-infl ammatory or Antipyret ic Advair Diskus 250 mcg-50 mcg/dose powder for inhalation 2020-08 00:00: 00 Yes [id number] ASTHMA/COPD Per instruc tions 2 TIMES DAILY Per instructio ns 2 TIMES DAILY (route: inhalation ) Med Classific ation: Respirato ry Therapy Agents Aspirin Low Dose 81 mg tablet,collins yed release 08-19 00:00: 00 Yes [id number] PROPHYLAXIS Per instruc tions DAILY Per instructio ns DAILY (route: oral) Med Classific ation: Hematolog ical Agents Colace 100 mg capsule 08-19 00:00: 00 Yes [id number] CONSTIPATIO N Per instruc tions 2 TIMES DAILY Per instructio ns 2 TIMES DAILY (route: oral) Med Classific ation: Gastroint estinal Therapy Agents Eliquis 2.5 mg tablet 08-19 00:00: 00 Yes [id number] DVT PROPHYLAXIS Per instruc tions 2 TIMES DAILY Per instructio ns 2 TIMES DAILY (route: oral) Med Classific ation: Hematolog ical Agents ipratropium 0.5 mg-albutero l 3 mg (2.5 mg base)/3 mL nebulizatio n soln 2020-08 00:00: 00 Yes [id number] SOB/WHEEZIN G Per instruc tions NEEDED Per instructio ns NEEDED (route: inhalation ) Med Classific ation: Respirato ry Therapy Agents levobunolol 0.5 % eye drops 2020-08 00:00: 00 Yes [id number] GLAUCOMA Per instruc tions 2 TIMES DAILY Per instructio ns 2 TIMES DAILY (route: ophthalmic (eye)) Med Classific ation: Ophthalmi c Agents meclizine 25 mg tablet 2020-08 00:00: 00 Yes [id number] DIZZINESS Per instruc tions NEEDED Per instructio ns NEEDED (route: oral) Med Classific ation: Gastroint estinal Therapy Agents metformin 500 mg tablet 2020-08 00:00: 00 Yes [id number] DM Per instruc tions 2 TIMES DAILY Per instructio ns 2 TIMES DAILY (route: oral) Med Classific ation: Endocrine Milk of Magnesia 400 mg/5 mL oral suspension 08-19 00:00: 00 Yes [id number] CONSTIPATIO N Per instruc tions NEEDED Per instructio ns NEEDED (route: oral) Med Classific ation: Gastroint estinal Therapy Agents Miralax 17 gram/dose oral powder 08-19 00:00: 00 Yes [id number] BM MANAGEMENT Per instruc tions DAILY Per instructio ns DAILY (route: oral) Med Classific ation: Gastroint estinal Therapy Agents Proventil HFA 90 mcg/actuati on aerosol inhaler 2020-08 00:00: 00 Yes [id number] ASTHMA/COPD Per instruc tions 4 TIMES DAILY Per instructio ns 4 TIMES DAILY (route: inhalation ) Med Classific ation: Respirato ry Therapy Agents Senna Lax 8.6 mg tablet 08-19 00:00: 00 Yes [id number] CONSTIPATIO N Per instruc tions NEEDED Per instructio ns NEEDED (route: oral) Med Classific ation: Gastroint estinal Therapy Agents tramadol 50 mg tablet 08-19 00:00: 00 Yes [id number] PAIN Per instruc tions EVERY 6 HOURS [...] EMERGENCY SERVICES CALL US FIRST TO KEEP LIMOUSINE RENTAL CLERK SYMPTOM REPORT FOR VISIBLE REFERENCE NOTIFY CLINICIAN/PHYSICIAN [...] EMERGENCY SERVICES CALL US FIRST TO KEEP LIMOUSINE RENTAL CLERK SYMPTOM REPORT FOR VISIBLE REFERENCE NOTIFY CLINICIAN/PHYSICIAN [...] End Date/Time Encounter Type Admission Type Attending [facility] Facility Care Department Encounter ID Discharge Date Discharge Status Discharge Condition Discharge Reason Percent Goals Met 2021-08-21 00:00:00 2021-09-15 00:00:00 Outpatient NEW ADMISSION BERTIN SON [facility] [id number] 2021-09-15 00:00:00 DISCHARGE TO HOME OR SELF CARE INDEPENDEN T WITH USE OF ASSISTIVE DEVICE HH ONLY - OUT PATIENT 100.00
== END 2024-08-18 13:47 | disposition home or self-care (01) ==
LOC: HO.LAB 13:46
PROVIDERS: PCP Internal Medicine; Visit Provider Internal Medicine
DX: Z51.81 Encounter for therapeutic drug level monitoring (principal); Z79.01 Long term (current) use of anticoagulants
CPT/HCPCS: 36415; 80048; 85027; 85610; 99212

== ENCOUNTER 2024-08-18 13:46 | Outpatient (AMB) | payer MEDICARE, SELFPAY ==
--- NOTE | 2024-08-18 14:39 | MHC.OFFVISCO ---
Intake Intake Visit Reasons: Anticoagulation Allergies No Known Allergies* Allergy (Uncoded 08/18/24 13:57) NKA Medication List - Last Reconciled 08/18/24 by Leanna Drake RN acetaminophen 1,000 mg PO BID PRN albuterol sulfate 90 mcg/actuation (ProAir HFA) 2 puffs PO Q4H PRN carvedilol 1 tab PO BID dapagliflozin propanediol (Farxiga) 10 mg PO DAILY docusate sodium (Stool Softener) 1 cap PO BID gabapentin 700 mg PO TID glipizide 5 mg PO BID ipratropium-albuterol 0.5 mg-3 mg(2.5 mg base)/3 mL 3 mL inhalation Q6H PRN latanoprost 0.005% 1 drp ophthalmic-Right BEDTIME levobunolol 0.5% 1 drp ophthalmic-Right BID meclizine 25 mg PO TID omeprazole 20 mg PO DAILY@0630 polyethylene glycol 3350 (Miralax) 17 grams PO BEDTIME potassium chloride ER 1 tab PO BID simvastatin 1 tab PO BEDTIME torsemide 20 mg PO DAILY warfarin 5 mg See Protocol PO DAILY Nursing Note INR: 5.9 / Repeat 6.0 LAB 5.5 out of therapeutic range- pt called out last week due to GI virus for 3 days - states feels week today, put in wheel chair and sent to lab, Medications and supplements reviewed- states no changes Denies any signs and symptoms of bleeding or bruising or clotting. Bleeding, bruising, clotting discussed Nutritional guidance given - try to eat greens today if able, Dose: hold x 2 days then 2.5mg sun and recheck 08/21/24 F/U INR: 3 days Patient verbalizes understanding of instructions given to go to the ER with any unusual bleeding or bruising t/c to PCP spoke with Kyara garciaer for MD office regarding pt status above and plan of care, also concerns for his decreased ability with ambulation and being able to come here and the possibility statins may be contributing to his aches and pains and if md could assess his situation, and that labs may be called to PCP - she stated she will convey msg to PCP Anti-Coag Initial Assessment Social Hx Patient Tobacco Use Status: Former Tobacco user Tobacco use type: Cigarette Smoking packs per day: 1 (quit approx 40 years ago) alcohol intake: never Cardiovascular Hx: CAD, [place], CHF, Arrhythmias and Other (pacemaker) Lung Disease HX: COPD Endocrine Hx: Diabetes Musculoskeletal Hx: Arthritis Blood Disorder Hx: Hyperlipidemia Hx: Kidney Disease Neurological Hx: Serious Head Injury Cancer HX: No Psych. Illness/Depression: No Coding Level of Care Code Est Patient Level 2 Diagnoses Current use of anticoagulant therapy Z79. 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 - halfway (current) use of anticoagulants Basic Metabolic Panel Today Z79.01 - halfway (current) use of anticoagulants Prothrombin Time INR Today Z79.01 - halfway (current) use of anticoagulants
[2024-08-18 15:34] LABS: Prothrombin Time Whole Bld POC 71.7 sec (11.1-13.5)
[2024-08-18 15:34] LABS: Prothrombin Time Whole Bld POC 70.3 sec (11.1-13.5); ~PT, ~INR - Anti Coag Clinic 5.9 (0.9-1.1)
--- OUTSIDE RECORDS SUMMARY | 2024-08-18 16:55 | XMS_ITS | Clinical Summary ---
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 Active 08-06 [...] 2020-08 00:00: 00 08-21 00:00 :00 No [id number] Per instruc tions TWICE DAILY Per instructio ns TWICE DAILY (route: topical) Med Classific ation: Dermatolo gical latanoprost 0.005 % eye drops 05-02 00:00: 00 Yes [id number] GLAUCOMA Per instruc tions BEDTIME Per instructio ns BEDTIME (route: ophthalmic (eye)) Med Classific ation: Ophthalmi c Agents hydrocodone 5 mg-acetamin ophen 325 mg tablet 2020-08 00:00: 00 08-21 00:00 :00 No [id number] PAIN Per instruc tions 4 TIMES DAILY Per instructio ns 4 TIMES DAILY (route: oral) Med Classific ation: Analgesic , Anti-infl ammatory or Antipyret ic oxycodone 5 mg tablet 08-17 00:00: 00 Yes [id number] PAIN Per instruc tions EVERY 6 HOURS Per instructio ns EVERY 6 HOURS (route: oral) Med Classific ation: Analgesic , Anti-infl ammatory or Antipyret ic furosemide 40 mg tablet 2020-08 00:00: 00 Yes [id number] DIURETIC Per instruc tions DAILY Per instructio ns DAILY (route: oral) Med Classific ation: Cardiovas cular Therapy Agents gabapentin 600 mg tablet 2020-08 00:00: 00 Yes [id number] NEUROPATHY Per instruc tions THREE TIMES DAILY Per instructio ns THREE TIMES DAILY (route: oral) Med Classific ation: Central Nervous System Agents omeprazole 20 mg capsule,del ayed release 2020-08 1-05 00:00: 00 Yes [id number] ACID INDIGESTION Per instruc tions DAILY Per instructio ns DAILY (route: oral) Med Classific ation: Gastroint estinal Therapy Agents simvastatin 20 mg tablet 04-20 00:00: 00 Yes [id number] HLD Per instruc tions DAILY Per instructio ns DAILY (route: oral) Med Classific ation: Cardiovas cular Therapy Agents carvedilol 6.25 mg tablet 2020-08 00:00: 00 Yes [id number] HTN Per instruc tions TWICE DAILY Per instructio ns TWICE DAILY (route: oral) Med Classific ation: Cardiovas cular Therapy Agents lisinopril 10 mg tablet 2020-08 00:00: 00 Yes [id number] HTN Per instruc tions ONCE DAILY Per instructio ns ONCE DAILY (route: oral) Med Classific ation: Cardiovas cular Therapy Agents potassium chloride ER 10 mEq tablet,exte nded release 2020-08 00:00: 00 Yes [id number] HYPOKALEMIA Per instruc tions TWICE DAILY Per instructio ns TWICE DAILY (route: oral) Med Classific ation: Electroly te Balance-N utritiona l Products acetaminoph en 325 mg tablet 2020-08 00:00: 00 Yes [id number] PAIN Per instruc tions EVERY 6 HOURS Per instructio ns EVERY 6 HOURS (route: oral) Med Classific ation: Analgesic , Anti-infl ammatory or Antipyret ic Advair Diskus 250 mcg-50 mcg/dose powder for inhalation 2020-08 00:00: 00 Yes [id number] ASTHMA/COPD Per instruc tions 2 TIMES DAILY Per instructio ns 2 TIMES DAILY (route: inhalation ) Med Classific ation: Respirato ry Therapy Agents Aspirin Low Dose 81 mg tablet,collins yed release 08-19 00:00: 00 Yes [id number] PROPHYLAXIS Per instruc tions DAILY Per instructio ns DAILY (route: oral) Med Classific ation: Hematolog ical Agents Colace 100 mg capsule 08-19 00:00: 00 Yes [id number] CONSTIPATIO N Per instruc tions 2 TIMES DAILY Per instructio ns 2 TIMES DAILY (route: oral) Med Classific ation: Gastroint estinal Therapy Agents Eliquis 2.5 mg tablet 08-19 00:00: 00 Yes [id number] DVT PROPHYLAXIS Per instruc tions 2 TIMES DAILY Per instructio ns 2 TIMES DAILY (route: oral) Med Classific ation: Hematolog ical Agents ipratropium 0.5 mg-albutero l 3 mg (2.5 mg base)/3 mL nebulizatio n soln 2020-08 00:00: 00 Yes [id number] SOB/WHEEZIN G Per instruc tions NEEDED Per instructio ns NEEDED (route: inhalation ) Med Classific ation: Respirato ry Therapy Agents levobunolol 0.5 % eye drops 2020-08 00:00: 00 Yes [id number] GLAUCOMA Per instruc tions 2 TIMES DAILY Per instructio ns 2 TIMES DAILY (route: ophthalmic (eye)) Med Classific ation: Ophthalmi c Agents meclizine 25 mg tablet 2020-08 00:00: 00 Yes [id number] DIZZINESS Per instruc tions NEEDED Per instructio ns NEEDED (route: oral) Med Classific ation: Gastroint estinal Therapy Agents metformin 500 mg tablet 2020-08 00:00: 00 Yes [id number] DM Per instruc tions 2 TIMES DAILY Per instructio ns 2 TIMES DAILY (route: oral) Med Classific ation: Endocrine Milk of Magnesia 400 mg/5 mL oral suspension 08-19 00:00: 00 Yes [id number] CONSTIPATIO N Per instruc tions NEEDED Per instructio ns NEEDED (route: oral) Med Classific ation: Gastroint estinal Therapy Agents Miralax 17 gram/dose oral powder 08-19 00:00: 00 Yes [id number] BM MANAGEMENT Per instruc tions DAILY Per instructio ns DAILY (route: oral) Med Classific ation: Gastroint estinal Therapy Agents Proventil HFA 90 mcg/actuati on aerosol inhaler 2020-08 00:00: 00 Yes [id number] ASTHMA/COPD Per instruc tions 4 TIMES DAILY Per instructio ns 4 TIMES DAILY (route: inhalation ) Med Classific ation: Respirato ry Therapy Agents Senna Lax 8.6 mg tablet 08-19 00:00: 00 Yes [id number] CONSTIPATIO N Per instruc tions NEEDED Per instructio ns NEEDED (route: oral) Med Classific ation: Gastroint estinal Therapy Agents tramadol 50 mg tablet 08-19 00:00: 00 Yes [id number] PAIN Per instruc tions EVERY 6 HOURS [...] EMERGENCY SERVICES CALL US FIRST TO KEEP QUALITY ASSURANCE QA LAB ANALYST SYMPTOM REPORT FOR VISIBLE REFERENCE NOTIFY CLINICIAN/PHYSICIAN [...] EMERGENCY SERVICES CALL US FIRST TO KEEP QUALITY ASSURANCE QA LAB ANALYST SYMPTOM REPORT FOR VISIBLE REFERENCE NOTIFY CLINICIAN/PHYSICIAN [...] 2021-09-15 00:00:00 Outpatient NEW ADMISSION BERTIN SON [facility] [id number] 2021-09-15 00:00:00 DISCHARGE TO HOME OR SELF CARE INDEPENDEN T WITH USE OF ASSISTIVE DEVICE HH ONLY - OUT PATIENT 100.00
== END 2024-08-18 15:21 | disposition home or self-care (01) ==
LOC: HO.ACS 13:46
PROVIDERS: PCP Internal Medicine; Visit Provider Internal Medicine
DX: Z79.01 Long term (current) use of anticoagulants (principal)

== ENCOUNTER 2024-08-27 13:49 | Outpatient (AMB) | payer MEDICARE, SELFPAY ==
--- NOTE | 2024-08-27 13:56 | MHC.OFFVISCO ---
Intake Intake Visit Reasons: Anticoagulation Allergies No Known Allergies* Allergy (Uncoded 08/18/24 13:57) NKA Medication List - Last Reconciled 08/27/24 by Francoise Santoro RN acetaminophen 1,000 mg PO BID PRN albuterol sulfate 90 mcg/actuation (ProAir HFA) 2 puffs PO Q4H PRN carvedilol 1 tab PO BID dapagliflozin propanediol (Farxiga) 10 mg PO DAILY docusate sodium (Stool Softener) 1 cap PO BID gabapentin 700 mg PO TID glipizide 5 mg PO BID ipratropium-albuterol 0.5 mg-3 mg(2.5 mg base)/3 mL 3 mL inhalation Q6H PRN latanoprost 0.005% 1 drp ophthalmic-Right BEDTIME levobunolol 0.5% 1 drp ophthalmic-Right BID meclizine 25 mg PO TID omeprazole 20 mg PO DAILY@0630 polyethylene glycol 3350 (Miralax) 17 grams PO BEDTIME potassium chloride ER 1 tab PO BID simvastatin 1 tab PO BEDTIME torsemide 20 mg PO DAILY warfarin 5 mg See Protocol PO DAILY Nursing Note PT.STATES THAT HE HAS NOT HAD WARFARIN SINCE 08/18 WHEN INR WAS 5.5. PT.MISSED 2 APPTS. AND DID NOT RESUME DOSING INSTRUCTED. PT.STATES THAT HE IS FEELING MUCH BETTER, AND APPETITE IS IMPROVED. SOB NOTED AFTER WALK TO OFFICE FROM THE [facility]. WILL USE W/C FROM NOW ON. DOSIN.5MGM 2 DAYS THEN RESUME 5MGM DAILY AND FOLLOW-UP HERE ON 09/01/24. IMPORTANCE OF FOLLOW-UP DISCUSSED, AND REVIEW OF DOSING AND DIET. ([facility]) INFORMED OF LOW INR AND PLAN OF CARE. Anti-Coag Initial Assessment Social Hx Patient Tobacco Use Status: Former Tobacco user Tobacco use type: Cigarette Smoking packs per day: 1 (quit approx 40 years ago) alcohol intake: never Cardiovascular Hx: CAD, PA, CHF, Arrhythmias and Other (pacemaker) Lung Disease HX: COPD Endocrine Hx: Diabetes Musculoskeletal Hx: Arthritis Blood Disorder Hx: Hyperlipidemia Hx: Kidney Disease Neurological Hx: Serious Head Injury Cancer HX: No Psych. Illness/Depression: No Coding Level of Care Code Est Patient Level 1 Diagnoses Current use of anticoagulant therapy Z79.01 Assessment & Plan Assessment & Plan (1) Current use of anticoagulant therapy: Code(s): Z79.01 - terminal clerk (current) use of anticoagulants Category: Medical
[2024-08-27 14:02] LABS: Prothrombin Time Whole Bld POC 12.5 sec (11.1-13.5)
--- OUTSIDE RECORDS SUMMARY | 2024-08-27 15:59 | XMS_ITS | Clinical Summary ---
Author Organization [facility] Address [address] [facility] [address] [place] [address] Phone Care Team Providers Care Grease Remover Name Role Phone Anthony Chang MD Primary Care Provider [phone] Allergies No known active allergies Medications Fluticasone-José Miguel meterol (Advair Diskus) 250-50 MCG/ACT aerosol powder Inhale 8 Active ALBUTEROL IN Inhale 2 Active carvedilol (COREG) 6.25 MG tablet 6.25 mg 1 Active ipratropium-alb uterol (DUO-NEB) 0.5-2.5 mg/3 mL nebulizer solution Inhale 3 mL 2 Active gabapentin (NEURONTIN) 600 MG tablet 600 mg 1 (one) time each day 1 Active latanoprost (XALATAN) 0.005 % ophthalmic solution Per instructions BEDTIME (route: ophthalmic (eye)) 1 Active meclizine (ANTIVERT) 25 MG tablet Take 25 mg by mouth 2 Active Omeprazole 20 MG tablet delayed-release Per instructions DAILY (route: oral) 1 Active oxyCODONE (OXY-IR) 5 MG immediate release capsule Per instructions EVERY 6 HOURS (route: oral) 2 Active Multiple Vitamin (MULTI-VITAMIN DAILY PO) 0 Refills, Maintenance, 04/26/22 15:37:00 EDT, Partial fill upon patient request if the prescription is for a schedule II opioid drug. 2 Active simvastatin (ZOCOR) 20 MG tablet Per instructions DAILY (route: oral) 1 Active apixaban (Eliquis) 2.5 MG tablet 2.5 mg 1 (one) time each day 2 Active gabapentin (NEURONTIN) 100 MG capsule Take 100 mg by mouth 1 (one) time each day Active glipiZIDE (GLUCOTROL) 5 MG tablet Take 5 mg by mouth in the morning and 5 mg in the evening. Take before meals. Active levobunolol (BETAGAN) 0.5 % ophthalmic solution 1 drop every night Active Empagliflozin 10 MG tablet Take 25 mg by mouth 1 (one) time each day 90 tablet 11 4 05/15/20 25 Active Empagliflozin 25 MG tablet Take 25 mg by mouth 1 (one) time each day in the morning 30 tablet 3 4 Active Dapagliflozin Propanediol (Farxiga) 10 MG tablet Take 10 mg by mouth 1 (one) time each day in the morning Active torsemide (DEMADEX) 20 MG tablet Take 1 tablet (20 mg total) by mouth 1 (one) time each day 90 tablet 3 4 05/29/20 25 Active Active Problems Problem Noted Date Diagnosed Date Stage 3a chronic kidney disease 05/29/2024 Hypertensive chronic kidney disease stage 3 08/07 Aortic valve stenosis 05/04/2023 05/04/2023 Congestive heart failure 05/04/2023 023 Diabetes mellitus 05/04/2023 05/04/2023 Gastroesophageal reflux disease 05/04/2023 05/04/2023 Glaucoma 05/04/2023 05/04/2023 Heart block 05/04/2023 05/04/2023 Hyperlipidemia 05/04/2023 05/04/2023 Hypertension 05/04/2023 05/04/2023 Osteoarthritis 05/04/2023 05/04/2023 Replacement of aortic valve 05/04/202304/07 Severe obesity 05/04/2023 05/04/2023 Atrial fibrillation 08/06/2021 05/04/2023 Chronic obstructive pulmonary disease 08/06/2021 05/04/2023 Resolved Problems Problem Noted Date Diagnosed Date Resolved Date Stage 3b chronic kidney disease 08/30/2023 05/29/2024 Encounters Date Type Department Care Team Description 05/29/2024 3:15 PM EDT Office Visit [facility] [address] [address] Stephen Pina MD Stage 3a chronic kidney disease (HCC) (Primary Dx); Hypertensive chronic kidney disease stage 3; Severe obesity (HCC); Pure hypercholesterolemia, not otherwise specified from Last 3 Months Social History Tobacco Use Types Packs/Day Years Used Date Smoking Tobacco: Never Smokeless Tobacco: Never Tobacco Cessation:Counseling Given: No Alcohol Use Standard Drinks/Week Comments Never 0 (1 standard drink = 0.6 oz pur e alcohol) Sex and Gender Information Value Date Recorded Sex Assigned at Not on file Legal Sex Male 2:14 PM EDT Gender Identity Not on file Sexual Orientation Not on file Last Filed Vital Signs Vital Sign Reading Time Taken Comments Blood Pressure 141/85 08/30/2023 12:48 PM EST Pulse 71 05/29/2024 3:36 PM EDT Temperature - - Respiratory Rate - - Oxygen Saturation 95% 05/30/2023 9:05 AM EDT Inhaled Oxygen Concentration - - Weight 113 kg (250 lb) 05/29/2024 3:36 PM EDT Height - - Body Mass Index - - Plan of Treatment Health Maintenance Due Date Last Done Comments Pneumococcal Vaccine: 65+ Ye ars (2 of 2 - PCV) 12/07/2010 12/07/2009 Diabetes: Ophthalmology Exam 03/13/2023 Diabetes: Pedal Pulse Checked 03/13/2023 Diabetes: Sensory Foot Exam 03/13/2023 Diabetes: Visual Foot Exam 03/13/2023 Diabetes: Hemoglobin A1C 08/30/2023 05/30/2023 Influenza Vaccine (#1) 2024 Hepatitis B Vaccine Aged Out No longe r eligible based on patient's age to complete this topic Procedures Procedure Name Priority Date/Time Associated Diagnosis Comments HEMOGLOBIN A1C Routine 05/30/2023 9:50 AM EDT Hyperkalemia Stage 3b chronic kidney disease (HCC) Acute kidney injury due to circulatory failure (HCC) from Last 3 Months or Most Recently Relevant to Health Maintenance Results * (ABNORMAL) Hemoglobin A1c (05/30/2023 9:50 AM EDT) Hemoglobin A1C 7.2(H) (4.0-5.6) % [facility] Comment: MONITORING: In known diabetic patients, hemoglobin A1c targets should be discussed with health care provider. DIAGNOSTIC USE: ??The [place] Diabetes Association (ADA) and the World Health Organization (WHO) recommend the use of HbA1c to diagnose diabetes using a threshold of 6.5%. Patients who have an HbA1c between 5.7% and 6.4% are considered at increased risk for developing diabetes in the future. CAUTION: Falsely low HbA1c results may be observed in patients with hemolytic anemia, homozygous forms of abnormal hemoglobin (e.g. SS, CC, SC), , recent blood loss or hemoglobin F greater than 7%. Fructosamine may be used as an alternate test in these cases. REFERENCE: ADA: Standards of Medical Care in Diabetes 2020, The Journal of Clinical and Applied Research and Education Volume 43, Supplement 1 Testing performed or reported by [facility], a Service of [facility], [address] [place] [address] Faizan Christiansen MD, Outdoor Power Equipment Mechanic [facility]# [id number] Blood (Blood, Venous) 05/30/2023 9:50 AM EDT 05/30/2023 9:56 AM EDT us Larry Powell MD LAB BLOOD ORDERABLES Pina rogers Result [facility] from Last 3 Months or Most Recently Relevant to Health Maintenance Insurance [facility] MEDICARE MEDICARE [facility] Care Teams Grease Remover Relationship Specialty Start Date End Date Anthony Chang MD [address] [place] [address] PCP - General Internal Medicine 03/13/23
== END 2024-08-27 14:49 | disposition home or self-care (01) ==
LOC: HO.ACS 13:49
PROVIDERS: PCP Internal Medicine; Visit Provider Internal Medicine
DX: Z79.01 Long term (current) use of anticoagulants (principal)

== ENCOUNTER → 2024-08-27 13:49 | Outpatient (BNVA) | payer MEDICARE, SELFPAY | PROVIDERS: PCP Internal Medicine; Visit Provider Internal Medicine | DX: I48.21 Permanent atrial fibrillation (principal); Z79.01 Long term (current) use of anticoagulants; Z51.81 Encounter for therapeutic drug level monitoring | CPT/HCPCS: 85610; 99211 ==

== ENCOUNTER 2024-09-01 14:02 | Outpatient (AMB) | payer MEDICARE, SELFPAY ==
--- NOTE | 2024-09-01 14:10 | MHC.OFFVISCO ---
Intake Intake Visit Reasons: Anticoagulation Allergies No Known Allergies* Allergy (Uncoded 09/01/24 13:57) NKA Medication List - Last Reconciled 09/01/24 by Vannessa Borges RN acetaminophen 1,000 mg PO BID PRN albuterol sulfate 90 mcg/actuation (ProAir HFA) 2 puffs PO Q4H PRN carvedilol 1 tab PO BID dapagliflozin propanediol (Farxiga) 10 mg PO DAILY docusate sodium (Stool Softener) 1 cap PO BID gabapentin 700 mg PO TID glipizide 5 mg PO BID ipratropium-albuterol 0.5 mg-3 mg(2.5 mg base)/3 mL 3 mL inhalation Q6H PRN latanoprost 0.005% 1 drp ophthalmic-Right BEDTIME levobunolol 0.5% 1 drp ophthalmic-Right BID meclizine 25 mg PO TID omeprazole 20 mg PO DAILY@0630 polyethylene glycol 3350 (Miralax) 17 grams PO BEDTIME potassium chloride ER 1 tab PO BID simvastatin 1 tab PO BEDTIME torsemide 20 mg PO DAILY warfarin 5 mg See Protocol PO DAILY Nursing Note Pt to ACS with use of wheeled walker with seat. States he feels well today. INR: 2.2 in therapeutic range of 2-3 Medications and supplements reviewed No changes in health, diet, medications, or supplements, Denies any signs and symptoms of bleeding or bruising or clotting. Bleeding, bruising, clotting discussed Nutritional guidance given to avoid greens today. Food list reviewed with pt. States he has been having reds but when questioned further, pt states he has had red apples and also tomato sauce. Teaching done about which foods raise the INR and which foods lower the INR. Dose: 5mg daily F/U INR: 1 week Patient verbalizes understanding of instructions given with read back given. Anti-Coag Initial Assessment Social Hx Patient Tobacco Use Status: Former Tobacco user Tobacco use type: Cigarette Smoking packs per day: 1 (quit approx 40 years ago) alcohol intake: never Cardiovascular Hx: CAD, [place], CHF, Arrhythmias and Other (pacemaker) Lung Disease HX: COPD Endocrine Hx: Diabetes Musculoskeletal Hx: Arthritis Blood Disorder Hx: Hyperlipidemia Hx: Kidney Disease Neurological Hx: Serious Head Injury Cancer HX: No Psych. Illness/Depression: No Coding Level of Care Code Est Patient Level 1 Diagnoses Current use of anticoagulant therapy Z79.01 Results AMB INR Fingerstick AMB INR Fingerstick 2.2 Last Edit by Vannessa Borges RN on 09/01/24 14:10 interface delay Assessment & Plan Assessment & Plan (1) Current use of anticoagulant therapy: Code(s): Z79.01 - prison (current) use of anticoagulants Category: Medical
--- OUTSIDE RECORDS SUMMARY | 2024-09-01 18:33 | XMS_ITS | Clinical Summary ---
Author Organization [facility] Address [address] [facility] [address] [place] [address] Phone Care Team Providers Care Inspector Motor Vehicles Name Role Phone Anthony Chang MD Primary Care Provider Allergies No known active allergies Medications Fluticasone-José [...] Stage 3b chronic kidney disease 08/30/2023 05/29/2024 Social History Tobacco Use Types Packs/Day Years [...] AM EDT) Hemoglobin A1C 7.2(H) (4.0-5.6) % [facility] Comment: MONITORING: In known diabetic patients, hemoglobin A1c targets should be discussed with health care provider. DIAGNOSTIC USE: ??The [place] Diabetes Association (ADA) and the World Health [...] Supplement 1 Testing performed or reported by [facility], a Service of [facility], [address] [place] [address] Faizan Christiansen MD, Fruit Trimmer [facility]# [id number] Blood (Blood, Venous) 05/30/2023 9:50 AM EDT 05/30/2023 9:56 AM EDT Larry Powell MD LAB BLOOD ORDERABLES Pina rogers Result [facility] from Last 3 Months or Most Recently Relevant to Health Maintenance Insurance [facility] MEDICARE MEDICARE [facility] Care Teams Inspector Motor Vehicles Relationship Specialty Start Date End Date Anthony Chang MD [address] [place] [address] PCP - General Internal Medicine 03/13/23
--- OUTSIDE RECORDS SUMMARY | 2024-09-01 18:33 | XMS_ITS | Patient Health Record ---
Author Organization [facility] Address [address] [place] [address] Care Team Providers Care Commercial Front Load Driver Name Role Phone Charlene PEREZ, Anthony Primary Care Provider Unavailab Suhail Figueroa Jr Unavailable Vitaly PEREZ, Erickson Unavailable Unavailable REASON FOR REFERRAL No Information SOCIAL HISTORY Sex Assigned At : Social History Observation Description Sex Assigned At Unknown PLAN OF TREATMENT No Information Insurance Providers Payer Name Payer Address Payer Phone Subscriber Number Group Number Insured Name Patient Relationship to Insured Coverage Start Date Coverage End Date MEDICARE OF [place] [address] [facility] [place] [address] [id number] LILIANA GAGE Self - patient is the insured MED[employer] ATTN CLAIMS [address] [place] [address] [id number] LILIANA GAGE Self - patient is the insured
[2024-09-02 10:28] LABS: Prothrombin Time Whole Bld POC 26.1 sec (11.1-13.5); ~PT, ~INR - Anti Coag Clinic 2.2 (0.9-1.1)
== END 2024-09-01 14:21 | disposition home or self-care (01) ==
LOC: HO.ACS 14:02
PROVIDERS: PCP Internal Medicine; Visit Provider Internal Medicine
DX: Z79.01 Long term (current) use of anticoagulants (principal)

== ENCOUNTER → 2024-09-01 14:02 | Outpatient (BNVA) | payer MEDICARE, SELFPAY | PROVIDERS: PCP Internal Medicine; Visit Provider Internal Medicine | DX: I48.21 Permanent atrial fibrillation (principal); Z79.01 Long term (current) use of anticoagulants; Z51.81 Encounter for therapeutic drug level monitoring | CPT/HCPCS: 85610; 99211 ==

== ENCOUNTER → 2024-09-08 14:13 | Outpatient (BNVA) | payer MEDICARE, SELFPAY | PROVIDERS: PCP Internal Medicine; Visit Provider Internal Medicine | DX: I48.20 Chronic atrial fibrillation, unspecified (principal); I48.21 Permanent atrial fibrillation; Z79.01 Long term (current) use of anticoagulants; Z51.81 Encounter for therapeutic drug level monitoring | CPT/HCPCS: 85610; 99211 ==

== ENCOUNTER 2024-09-17 09:58 | Outpatient (AMB) | payer MEDICARE, SELFPAY ==
--- NOTE | 2024-09-17 10:16 | MHC.OFFVISCO ---
Intake Intake Visit Reasons: Anticoagulation Allergies No Known Allergies* Allergy (Uncoded 09/17/24 10:02) NKA Medication List - Last Reconciled 09/17/24 by Alejandra Casey RN acetaminophen 1,000 mg PO BID PRN albuterol sulfate 90 mcg/actuation (ProAir HFA) 2 puffs PO Q4H PRN carvedilol 1 tab PO BID dapagliflozin propanediol (Farxiga) 10 mg PO DAILY docusate sodium (Stool Softener) 1 cap PO BID gabapentin 700 mg PO TID gabapentin 800 mg PO 3XD glipizide 5 mg PO BID ipratropium-albuterol 0.5 mg-3 mg(2.5 mg base)/3 mL 3 mL inhalation Q6H PRN latanoprost 0.005% 1 drp ophthalmic-Right BEDTIME levobunolol 0.5% 1 drp ophthalmic-Right BID meclizine 25 mg PO TID omeprazole 20 mg PO DAILY@0630 polyethylene glycol 3350 (Miralax) 17 grams PO BEDTIME potassium chloride ER 1 tab PO BID simvastatin 1 tab PO BEDTIME torsemide 20 mg PO DAILY warfarin 5 mg See Protocol PO DAILY Nursing Note INR 5.0-? out of therapeutic range of 2-3 pt sent to lab for stat pt/inr- inr 4.6 reported by Otilia Medications and supplements reviewed Patient status: pt amb to acs with roseann ralph fatigue Medications or supplements: no changes Diet: had red grapes Denies any signs and symptoms of bleeding or clotting or unusual bruising Bleeding, bruising, clotting discussed - aware high risk for bleeding, avoid high risk activity Nutritional guidance given: eat greens to lower, no reds Dose: hold warfarin today and take 2.5mg tomm pt states he thinks he has been taking 5mg of warfarin daily. enc to follow dosing management sheet and cross days off as he takes the dose dates on paper. F/U INR Date : sunday09/19/24?? Patient verbalizing understanding of instructions given. pcp Dr Chang -office called with inr/dosing and f/u appt. spoke to santhosh at 1105, aware of pt c.o fatigue and vague dosing Anti-Coag Initial Assessment Social Hx Patient Tobacco Use Status: Former Tobacco user Tobacco use type: Cigarette Smoking packs per day: 1 (quit approx 40 years ago) alcohol intake: never Cardiovascular Hx: CAD, [place], CHF, Arrhythmias and Other (pacemaker) Lung Disease HX: COPD Endocrine Hx: Diabetes Musculoskeletal Hx: Arthritis Blood Disorder Hx: Hyperlipidemia Hx: Kidney Disease Neurological Hx: Serious Head Injury Cancer HX: No Psych. Illness/Depression: No Coding Level of Care Code Est Patient Level 2 Diagnoses Current use of anticoagulant therapy Z79.01 Assessment & Plan Assessment & Plan (1) Current use of anticoagulant therapy: Code(s): Z79.01 - retirement (current) use of anticoagulants Category: Medical Orders: Orders Prothrombin Time INR Today Z79.01 - termite inspector (current) use of anticoagulants
[2024-09-17 10:18] LABS: Prothrombin Time Whole Bld POC 60.1 sec (11.1-13.5)
--- OUTSIDE RECORDS SUMMARY | 2024-09-17 11:41 | XMS_ITS | Clinical Summary ---
Author Organization [facility] Address [address] [facility] [address] [place] [address] Phone Care Team Providers Care Supervisor Vegetable Farming Name Role Phone Anthony Chang MD Primary [...] AM EDT) Hemoglobin A1C 7.2(H) (4.0-5.6) % [facility] Comment: MONITORING: In known diabetic patients, hemoglobin A1c targets should be discussed with health care provider. DIAGNOSTIC USE: ??The [place] Diabetes Association (ADA) and the World Health [...] Supplement 1 Testing performed or reported by [facility], a Service of [facility], [address] [place] [address] Faizan Christiansen MD, Recruitment Director [facility]# [id number] Blood (Blood, Venous) 05/30/2023 9:50 AM EDT 05/30/2023 9:56 AM EDT Larry Powell MD LAB BLOOD ORDERABLES Pina rogers Result [facility] from Last 3 Months or Most Recently Relevant to Health Maintenance Insurance [facility] MEDICARE MEDICARE [facility] Care Teams Supervisor Vegetable Farming Relationship Specialty Start Date End Date Anthony Chang MD [address] [place] [address] PCP - General Internal Medicine 03/13/23
--- OUTSIDE RECORDS SUMMARY | 2024-09-17 11:41 | XMS_ITS | Patient Health Record ---
Author Organization [facility] Address [address] [place] [address] Care Team Providers Care Home Stereo Equipment Installer Name Role Phone Charlene PEREZ, Anthony Primary [...] Date MEDICARE OF [place] [address] [facility] [place] [address] [id number] LILIANA GAGE Self - patient is the insured MED[employer] ATTN CLAIMS [address] [place] [address] [id number] LILIANA GAGE Self - patient is the insured
== END 2024-09-17 11:10 | disposition home or self-care (01) ==
LOC: HO.ACS 09:58
PROVIDERS: PCP Internal Medicine; Visit Provider Internal Medicine
DX: Z79.01 Long term (current) use of anticoagulants (principal)

== ENCOUNTER 2024-09-17 09:58 | Outpatient (REF) | payer MEDICARE, SELFPAY ==
[2024-09-17 10:37] LABS: INTERNATIONAL NORM RATIO 4.6 (0.9-1.1)
== END 2024-09-17 09:59 | disposition home or self-care (01) ==
LOC: HO.LAB 09:58
PROVIDERS: PCP Internal Medicine; Visit Provider Internal Medicine
DX: Z79.01 Long term (current) use of anticoagulants (principal)
CPT/HCPCS: 36415; 85610; 99212

== ENCOUNTER 2024-09-19 11:18 | Outpatient (AMB) | payer MEDICARE, SELFPAY ==
--- NOTE | 2024-09-19 11:25 | MHC.OFFVISCO ---
Intake Intake Visit Reasons: Anticoagulation Allergies No Known Allergies* Allergy (Uncoded 09/19/24 11:21) NKA Medication List - Last Reconciled 09/19/24 by Alejandra Casey RN acetaminophen 1,000 mg PO BID PRN albuterol sulfate 90 mcg/actuation (ProAir HFA) 2 puffs PO Q4H PRN carvedilol 1 tab PO BID dapagliflozin propanediol (Farxiga) 10 mg PO DAILY docusate sodium (Stool Softener) 1 cap PO BID gabapentin 800 mg PO 3XD glipizide 5 mg PO BID ipratropium-albuterol 0.5 mg-3 mg(2.5 mg base)/3 mL 3 mL inhalation Q6H PRN latanoprost 0.005% 1 drp ophthalmic-Right BEDTIME levobunolol 0.5% 1 drp ophthalmic-Right BID meclizine 25 mg PO TID omeprazole 20 mg PO DAILY@0630 polyethylene glycol 3350 (Miralax) 17 grams PO BEDTIME potassium chloride ER 1 tab PO BID simvastatin 1 tab PO BEDTIME torsemide 20 mg PO DAILY warfarin 5 mg See Protocol PO DAILY Nursing Note INR 3.4-?? out of therapeutic range of 2-3 Medications and supplements reviewed Patient status: pt amb with walker Medications or supplements: no changes Diet: same Denies any signs and symptoms of bleeding or clotting or unusual bruising Bleeding, bruising, clotting discussed Nutritional guidance given: eat green today, no reds for 2 days Dose: 2.5mg today, then F/U INR Date : ? 09/25/24 Patient verbalizing understanding of instructions given. Anti-Coag Initial Assessment Social Hx Patient Tobacco Use Status: Former Tobacco user Tobacco use type: Cigarette Smoking packs per day: 1 (quit approx 40 years ago) alcohol intake: never Cardiovascular Hx: CAD, [place], CHF, Arrhythmias and Other (pacemaker) Lung Disease HX: COPD Endocrine Hx: Diabetes Musculoskeletal Hx: Arthritis Blood Disorder Hx: Hyperlipidemia Hx: Kidney Disease Neurological Hx: Serious Head Injury Cancer HX: No Psych. Illness/Depression: No Coding Level of Care Code Est Patient Level 1 Diagnoses Current use of anticoagulant therapy Z79.01 Results AMB INR Fingerstick AMB INR Fingerstick 3.4 Last Edit by Alejandra Casey RN on 09/19/24 11:28 interface delay Assessment & Plan Assessment & Plan (1) Current use of anticoagulant therapy: Code(s): Z79.01 - adjunct faculty for medical terminology (current) use of anticoagulants Category: Medical
--- OUTSIDE RECORDS SUMMARY | 2024-09-19 12:10 | XMS_ITS | Patient Health Record ---
Author Organization [facility] Address [address] [place] [address] Care Team Providers Care Upholstery Covers Inspector Name Role Phone Charlene PEREZ, Anthony Primary Care Provider Unavailab Suhail Figueroa Jr Unavailable [phone] Vitaly PEREZ, Erickson Unavailable Unavailable REASON FOR REFERRAL No Information SOCIAL HISTORY Sex Assigned At : Social History Observation Description Sex Assigned At Unknown PLAN OF TREATMENT No Information Insurance Providers Payer Name Payer Address Payer Phone Subscriber Number Group Number Insured Name Patient Relationship to Insured Coverage Start Date Coverage End Date MEDICARE OF [place] [address] [place] [address] [id number] LILIANA GAGE Self - patient is the insured MED[employer] ATTN CLAIMS [address] [place] [address] [id number] LILIANA GAGE Self - patient is the insured
--- OUTSIDE RECORDS SUMMARY | 2024-09-19 12:10 | XMS_ITS | Clinical Summary ---
Author Organization [facility] Address [address] [facility] [address] [place] [address] Phone Care Team Providers Care Scoreboard Operator Name Role Phone Anthony Chang MD Primary Care Provider [phone] Allergies No known active allergies Medications Fluticasone-José [...] AM EDT) Hemoglobin A1C 7.2(H) (4.0-5.6) % [facility] Comment: MONITORING: In known diabetic patients, hemoglobin A1c targets should be discussed with health care provider. DIAGNOSTIC USE: ??The [place] Diabetes Association (ADA) and the World Health [...] Supplement 1 Testing performed or reported by [facility], a Service of [facility], [address] [place] [address] Faizan Christiansen MD, Side Laster Tack [facility]# [id number] Blood (Blood, Venous) 05/30/2023 9:50 AM EDT 05/30/2023 9:56 AM EDT Larry Powell MD LAB BLOOD ORDERABLES Pina rogers Result [facility] from Last 3 Months or Most Recently Relevant to Health Maintenance Insurance [facility] MEDICARE MEDICARE [facility] Care Teams Scoreboard Operator Relationship Specialty Start Date End Date Anthony Chang MD [address] [place] [address] PCP - General Internal Medicine 03/13/23
[2024-09-20 09:33] LABS: Prothrombin Time Whole Bld POC 40.7 sec (11.1-13.5); ~PT, ~INR - Anti Coag Clinic 3.4 (0.9-1.1)
== END 2024-09-19 11:51 | disposition home or self-care (01) ==
LOC: HO.ACS 11:18
PROVIDERS: PCP Internal Medicine; Visit Provider Internal Medicine
DX: Z79.01 Long term (current) use of anticoagulants (principal)

== ENCOUNTER → 2024-09-19 11:18 | Outpatient (BNVA) | payer MEDICARE, SELFPAY | PROVIDERS: PCP Internal Medicine; Visit Provider Internal Medicine | DX: I48.21 Permanent atrial fibrillation (principal); Z79.01 Long term (current) use of anticoagulants; Z51.81 Encounter for therapeutic drug level monitoring | CPT/HCPCS: 85610; 99211 ==

== ENCOUNTER 2024-09-25 14:20 | Outpatient (AMB) | payer MEDICARE, SELFPAY ==
[2024-09-25 14:37] LABS: Prothrombin Time Whole Bld POC 39.7 sec (11.1-13.5); ~PT, ~INR - Anti Coag Clinic 3.3 (0.9-1.1)
--- NOTE | 2024-09-25 14:38 | MHC.OFFVISCO ---
Intake Intake Visit Reasons: Anticoagulation Allergies No Known Allergies* Allergy (Uncoded 09/25/24 14:23) NKA Medication List - Last Reconciled 09/25/24 by Vannessa Borges RN acetaminophen 1,000 mg PO BID PRN albuterol sulfate 90 mcg/actuation (ProAir HFA) 2 puffs PO Q4H PRN carvedilol 1 tab PO BID dapagliflozin propanediol (Farxiga) 10 mg PO DAILY docusate sodium (Stool Softener) 1 cap PO BID gabapentin 800 mg PO 3XD glipizide 5 mg PO BID ipratropium-albuterol 0.5 mg-3 mg(2.5 mg base)/3 mL 3 mL inhalation Q6H PRN latanoprost 0.005% 1 drp ophthalmic-Right BEDTIME levobunolol 0.5% 1 drp ophthalmic-Right BID meclizine 25 mg PO TID omeprazole 20 mg PO DAILY@0630 polyethylene glycol 3350 (Miralax) 17 grams PO BEDTIME potassium chloride ER 1 tab PO BID simvastatin 1 tab PO BEDTIME torsemide 20 mg PO DAILY warfarin 5 mg See Protocol PO DAILY Nursing Note INR: 3.3?out of therapeutic range 2-3 Medications and supplements reviewed Patient status: well Medications or supplements: no changes Diet: usual diet for pt Denies any signs and symptoms of bleeding or clotting or unusual bruising Bleeding, bruising, clotting discussed Nutritional guidance given: have a serving of greens today Dose: INR has been high so will hold today's dose then 5mg X 4 days and 2.5mg X 3 days (Mon, Wed & Fri) F/U INR Date : 1 week Patient verbalizing understanding of instructions given. Anti-Coag Initial Assessment Social Hx Patient Tobacco Use Status: Former Tobacco user Tobacco use type: Cigarette Smoking packs per day: 1 (quit approx 40 years ago) alcohol intake: never Cardiovascular Hx: CAD, OR, CHF, Arrhythmias and Other (pacemaker) Lung Disease HX: COPD Endocrine Hx: Diabetes Musculoskeletal Hx: Arthritis Blood Disorder Hx: Hyperlipidemia Hx: Kidney Disease Neurological Hx: Serious Head Injury Cancer HX: No Psych. Illness/Depression: No Coding Level of Care Code Est Patient Level 1 Diagnoses Current use of anticoagulant therapy Z79.01 Results AMB INR Fingerstick AMB INR Fingerstick 3.3 Last Edit by Vannessa Borges RN on 09/25/24 14:29 interface delay Assessment & Plan Assessment & Plan (1) Current use of anticoagulant therapy: Code(s): Z79.01 - detention (current) use of anticoagulants Category: Medical
--- OUTSIDE RECORDS SUMMARY | 2024-09-25 15:35 | XMS_ITS | Patient Health Record ---
Author Organization [facility] Address [address] [place] [address] Care Team Providers Care Metal Filer Name Role Phone Charlene PEREZ, Anthony Primary [...] Date MEDICARE OF [place] [address] [facility] [place] [address] [id number] LILIANA AGGE Self - patient is the insured [employer] ATTN CLAIMS [address] [place] [address] [id number] LILIANA GAGE Self - patient is the insured
--- OUTSIDE RECORDS SUMMARY | 2024-09-25 15:35 | XMS_ITS | Clinical Summary ---
Author Organization [facility] Address [address] [facility] [address] [place] [address] Phone Care Team Providers Care Farmworker Animal Name Role Phone Anthony Chang MD Primary Care Provider [phone] Allergies No known active allergies Medications Fluticasone-José [...] AM EDT) Hemoglobin A1C 7.2(H) (4.0-5.6) % [facility] Comment: MONITORING: In known diabetic patients, hemoglobin A1c targets should be discussed with health care provider. DIAGNOSTIC USE: ??The [place] Diabetes Association (ADA) and the World Health [...] Supplement 1 Testing performed or reported by [facility], a Service of [facility], [address] [place] [address] Faizan Christiansen MD, Food And Beverage Assistant Manager [facility]# [id number] Blood (Blood, Venous) 05/30/2023 9:50 AM EDT 05/30/2023 9:56 AM EDT Larry Powell MD LAB BLOOD ORDERABLES Pina rogers Result [facility] from Last 3 Months or Most Recently Relevant to Health Maintenance Insurance [facility] MEDICARE MEDICARE [facility] Care Teams Farmworker Animal Relationship Specialty Start Date End Date Anthony Chang MD [address] [place] [address] PCP - General Internal Medicine 03/13/23
== END 2024-09-25 14:48 | disposition home or self-care (01) ==
LOC: HO.ACS 14:20
PROVIDERS: PCP Internal Medicine; Visit Provider Internal Medicine
DX: Z79.01 Long term (current) use of anticoagulants (principal)

== ENCOUNTER → 2024-09-25 14:20 | Outpatient (BNVA) | payer MEDICARE, SELFPAY | PROVIDERS: PCP Internal Medicine; Visit Provider Internal Medicine | DX: I48.20 Chronic atrial fibrillation, unspecified (principal); I48.21 Permanent atrial fibrillation; Z79.01 Long term (current) use of anticoagulants; Z51.81 Encounter for therapeutic drug level monitoring | CPT/HCPCS: 85610; 99211 ==

== ENCOUNTER 2024-10-06 14:14 | Outpatient (AMB) | payer MEDICARE, SELFPAY ==
--- NOTE | 2024-10-06 14:37 | MHC.OFFVISCO ---
Intake Intake Visit Reasons: Anticoagulation Allergies No Known Allergies* Allergy (Uncoded 10/06/24 14:15) NKA Medication List - Last Reconciled 10/06/24 by Vannessa Borges RN acetaminophen 1,000 mg PO BID PRN albuterol sulfate 90 mcg/actuation (ProAir HFA) 2 puffs PO Q4H PRN carvedilol 1 tab PO BID dapagliflozin propanediol (Farxiga) 10 mg PO DAILY docusate sodium (Stool Softener) 1 cap PO BID gabapentin 800 mg PO 3XD glipizide 5 mg PO BID ipratropium-albuterol 0.5 mg-3 mg(2.5 mg base)/3 mL 3 mL inhalation Q6H PRN latanoprost 0.005% 1 drp ophthalmic-Right BEDTIME levobunolol 0.5% 1 drp ophthalmic-Right BID meclizine 25 mg PO TID omeprazole 20 mg PO DAILY@0630 polyethylene glycol 3350 (Miralax) 17 grams PO BEDTIME potassium chloride ER 1 tab PO BID simvastatin 1 tab PO BEDTIME torsemide 20 mg PO DAILY warfarin 5 mg See Protocol PO DAILY Nursing Note Pt to [facility] with use of wheeled walker INR by POC was 5.8, out of therapeutic range of 2-3 Pt sent to lab for verification. Lab draw INR 5.3 Pt c/o feeling very tired and states he was not feeling well last week and cancelled his appt at [facility] Medications and supplements reviewed Patient status: states he is tired Medications or supplements: no change Diet: usual diet for pt Denies any signs and symptoms of bleeding or clotting or unusual bruising Bleeding, bruising, clotting discussed Nutritional guidance given: to have a serving of greens today and tomorrow Dose: hold dose today and tomorrow then return for retest F/U INR Date : Sun10/06/24?? Patient verbalizing understanding of instructions given. T/C to Dr Chang. Office closed. Message left with answering service for Dr Chang to call [facility] to report critical value with dosing plan and next retest date. Anti-Coag Initial Assessment Social Hx Patient Tobacco Use Status: Former Tobacco user Tobacco use type: Cigarette Smoking packs per day: 1 (quit approx 40 years ago) alcohol intake: never Cardiovascular Hx: CAD, [place], CHF, Arrhythmias and Other (pacemaker) Lung Disease HX: COPD Endocrine Hx: Diabetes Musculoskeletal Hx: Arthritis Blood Disorder Hx: Hyperlipidemia Hx: Kidney Disease Neurological Hx: Serious Head Injury Cancer HX: No Psych. Illness/Depression: No Coding Level of Care Code Est Patient Level 2 Diagnoses Current use of anticoagulant therapy Z79.01 Time Spent (min) 40 Comment pt sent to lab to verify result. pt education regarding food choices. 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
[2024-10-06 15:12] LABS: Prothrombin Time Whole Bld POC 69.5 sec (11.1-13.5); ~PT, ~INR - Anti Coag Clinic 5.8 (0.9-1.1)
--- OUTSIDE RECORDS SUMMARY | 2024-10-06 17:02 | XMS_ITS | Clinical Summary ---
Author Organization [facility] Address [address] [facility] [address] [place] [address] Phone Care Team Providers Care Net Developer Programmer Name Role Phone Anthony Chang MD Primary [...] AM EDT) Hemoglobin A1C 7.2(H) (4.0-5.6) % [facility] Comment: MONITORING: In known diabetic patients, hemoglobin A1c targets should be discussed with health care provider. DIAGNOSTIC USE: ??The [place] Diabetes Association (ADA) and the World Health [...] Supplement 1 Testing performed or reported by [facility], a Service of [facility], [address] [place] [address] Faizan Christiansen MD, Quality Assistant [facility]# [id number] Blood (Blood, Venous) 05/30/2023 9:50 AM EDT 05/30/2023 9:56 AM EDT Larry Powell MD LAB BLOOD ORDERABLES Pina rogers Result [facility] from Last 3 Months or Most Recently Relevant to Health Maintenance Insurance [facility] MEDICARE MEDICARE [facility] Care Teams Net Developer Programmer Relationship Specialty Start Date End Date Anthony Chang MD [address] [place] [address] PCP - General Internal Medicine 03/13/23
--- OUTSIDE RECORDS SUMMARY | 2024-10-06 17:02 | XMS_ITS | Patient Health Record ---
Author Organization [facility] Address [address] [place] [address] Care Team Providers Care Manager Body Name Role Phone Charlene PEREZ, Anthony Primary Care Provider Unavailab Suhail Figueroa Jr Unavailable [phone] Vitaly PEREZ, Erickson Unavailable Unavailable REASON FOR REFERRAL No Information SOCIAL HISTORY Sex Assigned At : Social History Observation Description Sex Assigned At Unknown PLAN OF TREATMENT No Information Insurance Providers Payer Name Payer Address Payer Phone Subscriber Number Group Number Insured Name Patient Relationship to Insured Coverage Start Date Coverage End Date MEDICARE OF [place] [address] [facility] [address] [id number] LILIANA GAGE Self - patient is the insured MEDEX ATTN CLAIMS [address] [place] [address] [id number] LILIANA GAGE Self - patient is the insured
== END 2024-10-06 16:20 | disposition home or self-care (01) ==
LOC: HO.ACS 14:14
PROVIDERS: PCP Internal Medicine; Visit Provider Internal Medicine
DX: Z79.01 Long term (current) use of anticoagulants (principal)

== ENCOUNTER 2024-10-06 14:14 | Outpatient (REF) | payer MEDICARE, SELFPAY ==
[2024-10-06 15:06] LABS: Prothrombin Time 62.5 SEC (10.9-12.4)
[2024-10-06 15:29] LABS: INTERNATIONAL NORM RATIO 5.3 (0.9-1.1)
== END 2024-10-06 14:15 | disposition home or self-care (01) ==
LOC: HO.LAB 14:14
PROVIDERS: PCP Internal Medicine; Visit Provider Internal Medicine
DX: Z79.01 Long term (current) use of anticoagulants (principal)
CPT/HCPCS: 36415; 85610; 99212

== ENCOUNTER 2024-10-08 13:48 | Outpatient (AMB) | payer MEDICARE, SELFPAY ==
[2024-10-08 14:05] LABS: Prothrombin Time Whole Bld POC 38.3 sec (11.1-13.5); ~PT, ~INR - Anti Coag Clinic 3.2 (0.9-1.1)
--- NOTE | 2024-10-08 15:04 | MHC.OFFVISCO ---
Intake Intake Visit Reasons: Anticoagulation Allergies No Known Allergies* Allergy (Uncoded 10/06/24 14:15) NKA Medication List - Last Reconciled 10/08/24 by Francoise Santoro RN acetaminophen 1,000 mg PO BID PRN albuterol sulfate 90 mcg/actuation (ProAir HFA) 2 puffs PO Q4H PRN carvedilol 1 tab PO BID dapagliflozin propanediol (Farxiga) 10 mg PO DAILY docusate sodium (Stool Softener) 1 cap PO BID gabapentin 800 mg PO 3XD glipizide 5 mg PO BID ipratropium-albuterol 0.5 mg-3 mg(2.5 mg base)/3 mL 3 mL inhalation Q6H PRN latanoprost 0.005% 1 drp ophthalmic-Right BEDTIME levobunolol 0.5% 1 drp ophthalmic-Right BID meclizine 25 mg PO TID omeprazole 20 mg PO DAILY@0630 polyethylene glycol 3350 (Miralax) 17 grams PO BEDTIME potassium chloride ER 1 tab PO BID simvastatin 1 tab PO BEDTIME torsemide 20 mg PO DAILY warfarin 5 mg See Protocol PO DAILY Nursing Note PT.DENIES ANY CP,SOB,DIET/MED CHANGES,FALLS OR SX OF BLEEDING. HOLD WARFARIN AGAIN TODAY THEN REDUCE WEEKLY DOSE AND FOLLOW-UP IN 1 WEEK. 'S OFFICE NOTIFIED OF INR TODAY AND PLAN OF CARE. Anti-Coag Initial Assessment Social Hx Patient Tobacco Use Status: Former Tobacco user Tobacco use type: Cigarette Smoking packs per day: 1 (quit approx 40 years ago) alcohol intake: never Cardiovascular Hx: CAD, [place], CHF, Arrhythmias and Other (pacemaker) Lung Disease HX: COPD Endocrine Hx: Diabetes Musculoskeletal Hx: Arthritis Blood Disorder Hx: Hyperlipidemia Hx: Kidney Disease Neurological Hx: Serious Head Injury Cancer HX: No Psych. 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
--- OUTSIDE RECORDS SUMMARY | 2024-10-08 16:31 | XMS_ITS | Patient Health Record ---
Author Organization [facility] Address [address] [place] [address] Care Team Providers Care Deep Submergence Vehicle Crewmember Name Role Phone Charlene PEREZ, Anthony Primary Care Provider Unavailab Suhail Figueroa Jr Unavailable Vitaly PEREZ, Erickson Unavailable Unavailable Reason For Referral No Information Plan Of Treatment No Information Insurance Providers Payer Name Payer Address Payer Phone Subscriber Number Group Number Insured Name Patient Relationship to Insured Coverage Start Date Coverage End Date MEDICARE OF [place] [address] [place] [address] [id number] LILIANA GAGE Self - patient is the insured MEDEX ATTN CLAIMS [address] [place] [address] [id number] LILIANA GAGE Self - patient is the insured
--- OUTSIDE RECORDS SUMMARY | 2024-10-08 16:31 | XMS_ITS | Clinical Summary ---
Author Organization [facility] Address [address] [facility] [address] [place] [address] Phone Care Team Providers Care Freelance Graphic Designer Name Role Phone Anthony Chang MD Primary Care Provider [phone] Allergies No known active allergies Medications Fluticasone-José [...] AM EDT) Hemoglobin A1C 7.2(H) (4.0-5.6) % [facility] Comment: MONITORING: In known diabetic patients, hemoglobin A1c targets should be discussed with health care provider. DIAGNOSTIC USE: ??The [place] Diabetes Association (ADA) and the World Health [...] Supplement 1 Testing performed or reported by [facility], a Service of [facility], [address] [place] [address] Faizan Christiansen MD, Shuttler [facility]# [id number] Blood (Blood, Venous) 05/30/2023 9:50 AM EDT 05/30/2023 9:56 AM EDT Larry Powell MD LAB BLOOD ORDERABLES Pina rogers Result [facility] from Last 3 Months or Most Recently Relevant to Health Maintenance Insurance [facility] MEDICARE MEDICARE [facility] Care Teams Freelance Graphic Designer Relationship Specialty Start Date End Date Anthony Chang MD [address] [place] [address] PCP - General Internal Medicine 03/13/23
== END 2024-10-08 15:07 | disposition home or self-care (01) ==
LOC: HO.ACS 13:49
PROVIDERS: PCP Internal Medicine; Visit Provider Internal Medicine
DX: Z79.01 Long term (current) use of anticoagulants (principal)

== ENCOUNTER → 2024-10-08 13:48 | Outpatient (BNVA) | payer MEDICARE, SELFPAY | PROVIDERS: PCP Internal Medicine; Visit Provider Internal Medicine | DX: I48.21 Permanent atrial fibrillation (principal); Z79.01 Long term (current) use of anticoagulants; Z51.81 Encounter for therapeutic drug level monitoring | CPT/HCPCS: 85610; 99211 ==

== ENCOUNTER 2024-10-15 13:57 | Outpatient (AMB) | payer MEDICARE, SELFPAY ==
[2024-10-15 14:09] LABS: Prothrombin Time Whole Bld POC 31.8 sec (11.1-13.5); ~PT, ~INR - Anti Coag Clinic 2.6 (0.9-1.1)
--- NOTE | 2024-10-15 14:25 | MHC.OFFVISCO ---
Intake Intake Visit Reasons: Anticoagulation Allergies No Known Allergies* Allergy (Uncoded 10/06/24 14:15) NKA Medication List - Last Reconciled 10/15/24 by Francoise Santoro RN acetaminophen 1,000 mg PO BID PRN albuterol sulfate 90 mcg/actuation (ProAir HFA) 2 puffs PO Q4H PRN carvedilol 1 tab PO BID dapagliflozin propanediol (Farxiga) 10 mg PO DAILY docusate sodium (Stool Softener) 1 cap PO BID gabapentin 800 mg PO 3XD glipizide 5 mg PO BID ipratropium-albuterol 0.5 mg-3 mg(2.5 mg base)/3 mL 3 mL inhalation Q6H PRN latanoprost 0.005% 1 drp ophthalmic-Right BEDTIME levobunolol 0.5% 1 drp ophthalmic-Right BID meclizine 25 mg PO TID omeprazole 20 mg PO DAILY@0630 polyethylene glycol 3350 (Miralax) 17 grams PO BEDTIME potassium chloride ER 1 tab PO BID simvastatin 1 tab PO BEDTIME torsemide 20 mg PO DAILY warfarin 5 mg See Protocol PO DAILY Nursing Note NO CP,SOB,DIET/MED CHANGES,FALLS OR SX OF BLEEDING. CONTINUE PRESENT DOSE AND FOLLOW-UP IN 2 WEEKS. GOOD UNDERSTANDING OF DOSING INSTR. Anti-Coag Initial Assessment Social Hx Patient Tobacco Use Status: Former Tobacco user Tobacco use type: Cigarette Smoking packs per day: 1 (quit approx 40 years ago) alcohol intake: never Cardiovascular Hx: CAD, [place], CHF, Arrhythmias and Other (pacemaker) Lung Disease HX: COPD Endocrine Hx: Diabetes Musculoskeletal Hx: Arthritis Blood Disorder Hx: Hyperlipidemia Hx: Kidney Disease Neurological Hx: Serious Head Injury Cancer HX: No Psych. 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
--- OUTSIDE RECORDS SUMMARY | 2024-10-15 16:28 | XMS_ITS | Clinical Summary ---
Author Organization [facility] Address [address] [facility] [address] [place] [address] Phone Care Team Providers Care Market Investigator Name Role Phone Anthony Chang MD Primary Care Provider [phone] Allergies No known active allergies Medications Fluticasone-José [...] AM EDT) Hemoglobin A1C 7.2(H) (4.0-5.6) % [facility] Comment: MONITORING: In known diabetic patients, hemoglobin A1c targets should be discussed with health care provider. DIAGNOSTIC USE: ??The [place] Diabetes Association (ADA) and the World Health [...] Supplement 1 Testing performed or reported by [facility], a Service of [facility], [address] [place] [address] Faizan Christiansen MD, Label Operator [facility]# [id number] Blood (Blood, Venous) 05/30/2023 9:50 AM EDT 05/30/2023 9:56 AM EDT Larry Powell MD LAB BLOOD ORDERABLES Pina rogers Result [facility] from Last 3 Months or Most Recently Relevant to Health Maintenance Insurance [facility] MEDICARE MEDICARE [facility] Care Teams Market Investigator Relationship Specialty Start Date End Date Anthony Chang MD [address] [place] [address] PCP - General Internal Medicine 03/13/23
--- OUTSIDE RECORDS SUMMARY | 2024-10-15 16:28 | XMS_ITS | Patient Health Record ---
Author Organization [facility] Address [address] [place] [address] Care Team Providers Care Personalization Specialist Name Role Phone Charlene PEREZ, Anthony Primary Care Provider Unavailab Suhail Figueroa Jr Unavailable Vitaly PEREZ, Erickson Unavailable Unavailable Reason For Referral No Information Plan Of Treatment No Information Insurance Providers Payer Name Payer Address Payer Phone Subscriber Number Group Number Insured Name Patient Relationship to Insured Coverage Start Date Coverage End Date MEDICARE OF [place] [address] [place] [address] [id number] LILIANA GAGE Self - patient is the insured MED[employer] ATTN CLAIMS [address] [place] [address] [id number] LILIANA GAGE Self - patient is the insured
== END 2024-10-15 14:28 | disposition home or self-care (01) ==
LOC: HO.ACS 13:57
PROVIDERS: PCP Internal Medicine; Visit Provider Internal Medicine
DX: Z79.01 Long term (current) use of anticoagulants (principal)

== ENCOUNTER → 2024-10-15 13:57 | Outpatient (BNVA) | payer MEDICARE, SELFPAY | PROVIDERS: PCP Internal Medicine; Visit Provider Internal Medicine | DX: I48.21 Permanent atrial fibrillation (principal); Z79.01 Long term (current) use of anticoagulants; Z51.81 Encounter for therapeutic drug level monitoring | CPT/HCPCS: 85610; 99211 ==

== ENCOUNTER 2024-11-19 09:51 | Outpatient (AMB) | payer MEDICARE, SELFPAY ==
[2024-11-19 09:59] LABS: Prothrombin Time Whole Bld POC 38.4 sec (11.1-13.5); ~PT, ~INR - Anti Coag Clinic 3.2 (0.9-1.1)
--- NOTE | 2024-11-19 10:08 | MHC.OFFVISCO ---
Intake Intake Visit Reasons: Anticoagulation Allergies No Known Allergies* Allergy (Uncoded 11/19/24 09:51) NKA Medication List - Last Reconciled 11/19/24 by Francoise Santoro RN acetaminophen 1,000 mg PO BID PRN albuterol sulfate 90 mcg/actuation (ProAir HFA) 2 puffs PO Q4H PRN carvedilol 1 tab PO BID dapagliflozin propanediol (Farxiga) 10 mg PO DAILY docusate sodium (Stool Softener) 1 cap PO BID gabapentin 800 mg PO 3XD glipizide 5 mg PO BID ipratropium-albuterol 0.5 mg-3 mg(2.5 mg base)/3 mL 3 mL inhalation Q6H PRN latanoprost 0.005% 1 drp ophthalmic-Right BEDTIME levobunolol 0.5% 1 drp ophthalmic-Right BID meclizine 25 mg PO TID omeprazole 20 mg PO DAILY@0630 polyethylene glycol 3350 (Miralax) 17 grams PO BEDTIME potassium chloride ER 1 tab PO BID simvastatin 1 tab PO BEDTIME torsemide 20 mg PO DAILY warfarin 5 mg See Protocol PO DAILY Nursing Note NO CP,SOB,DIET/MED CHANGES,FALLS OR SX OF BLEEDING. CONTINUE PRESENT DOSE AND FOLLOW-UP IN 2 WEEKS. GOOD UNDERSTANDING OF DOSING INSTR. Anti-Coag Initial Assessment Social Hx Patient Tobacco Use Status: Former Tobacco user Tobacco use type: Cigarette Smoking packs per day: 1 (quit approx 40 years ago) alcohol intake: never Cardiovascular Hx: CAD, [place], CHF, Arrhythmias and Other (pacemaker) Lung Disease HX: COPD Endocrine Hx: Diabetes Musculoskeletal Hx: Arthritis Blood Disorder Hx: Hyperlipidemia Hx: Kidney Disease Neurological Hx: Serious Head Injury Cancer HX: No Psych. 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
--- OUTSIDE RECORDS SUMMARY | 2024-11-19 11:11 | XMS_ITS | Clinical Summary ---
Author Organization [facility] Address [address] [facility] [address] [place] [address] Phone Care Team Providers Care Precision Millwright Name Role Phone Anthony Chang MD Primary Care Provider [phone] Allergies No known active allergies Medications Fluticasone-Sa lmeterol (Advair Diskus) 250-50 MCG/ACT aerosol powder Inhale 04/03/20 18 Active ALBUTEROL IN Inhale 06/26/20 12 Active carvedilol (COREG) 6.25 MG tablet 6.25 mg 07/28/20 21 Active ipratropium-al buterol (DUO-NEB) 0.5-2.5 mg/3 mL nebulizer solution Inhale 3 mL 05/16/20 12 Active gabapentin (NEURONTIN) 600 MG tablet 600 mg 1 (one) time each day 07/27/20 21 Active latanoprost (XALATAN) 0.005 % ophthalmic solution Per instructions BEDTIME (route: ophthalmic (eye)) 05/02/20 21 Active meclizine (ANTIVERT) 25 MG tablet Take 25 mg by mouth 04/26/20 22 Active Omeprazole 20 MG tablet delayed-releas e Per instructions DAILY (route: oral) 06/10/20 21 Active oxyCODONE (OXY-IR) 5 MG immediate release capsule Per instructions EVERY 6 HOURS (route: oral) 08/17/19 22 Active Multiple Vitamin (MULTI-VITAMIN DAILY PO) 0 Refills, Maintenance, 04/26/22 15:37:00 EDT, Partial fill upon patient request if the prescription is for a schedule II opioid drug. 04/26/20 22 Active simvastatin (ZOCOR) 20 MG tablet Per instructions DAILY (route: oral) 04/20/20 21 Active apixaban (Eliquis) 2.5 MG tablet 2.5 mg 1 (one) time each day 08/19/19 22 Active gabapentin (NEURONTIN) 100 MG capsule Take 100 mg by mouth 1 (one) time each day Active glipiZIDE (GLUCOTROL) 5 MG tablet Take 5 mg by mouth in the morning and 5 mg in the evening. Take before meals. Active levobunolol (BETAGAN) 0.5 % ophthalmic solution 1 drop every night Active torsemide (DEMADEX) 20 MG tablet Take 1 tablet (20 mg total) by mouth 1 (one) time each day 90 tablet 3 05/29/20 24 2024 Active Dapagliflozin Propanediol (Farxiga) 10 MG tablet Take 10 mg by mouth 1 (one) time each day in the morning 30 tablet 11 11/18/19 25 Active Empagliflozin 10 MG tablet Take 25 mg by mouth 1 (one) time each day 90 tablet 11 05/15/20 24 2024 Discontinued Empagliflozin 25 MG tablet Take 25 mg by mouth 1 (one) time each day in the morning 30 tablet 3 05/22/20 24 2024 Discontinued Dapagliflozin Propanediol (Farxiga) 10 MG tablet Take 10 mg by mouth 1 (one) time each day in the morning 2024 Discontinued(R eorder (does not appear on AVS)) Active Problems Problem Noted Date Diagnosed Date [...] Encounters Date Type Department Care Team Description 11/17/2024 [facility]ill [facility] [address] [place] [address] Edwina Meredith 11/15/2024 Refill [facility] [address] [place] [address] Irineo Schwartz MD from Last 3 Months Social History Tobacco [...] Mass Index - - Plan of Treatment Upcoming Encounters Date Type Department Care Team (Late st Contact Info) Description 12/18/2024 4:15 PM EDT Office Visit [facility] [address] [place] [address] Stephen Pina MD [address] [address] Health Maintenance Due Date Last Done Comments Pneumococcal Vaccine: 50+ Ye ars (2 of 2 - PCV) 12/07/2010 12/07/2009 Diabetes: Ophthalmology Exam 03/13/2023 Diabetes: Pedal Pulse Checked 03/13/2023 Diabetes: Sensory Foot Exam 03/13/2023 Diabetes: Visual Foot Exam 03/13/2023 Diabetes: Hemoglobin A1C 08/30/2023 05/30/2023 Influenza Vaccine (Season Ended) 2025 Hepatitis B Vaccine Aged Out No longe [...] AM EDT) Hemoglobin A1C 7.2(H) (4.0-5.6) % [facility] Comment: MONITORING: In known diabetic patients, hemoglobin A1c targets should be discussed with health care provider. DIAGNOSTIC USE: ??The [place] Diabetes Association (ADA) and the World Health [...] Supplement 1 Testing performed or reported by [facility], a Service of [facility], [address] [place] [address] Faizan Christiansen MD, Securities Settlement Processor [facility]# [id number] Blood (Blood, Venous) 05/30/2023 9:50 AM EDT 05/30/2023 9:56 AM EDT Larry Powell MD LAB BLOOD ORDERABLES Pina rogers Result [facility] from Last 3 Months or Most Recently Relevant to Health Maintenance Insurance [facility] Medicare Medicare [facility] Care Teams Precision Millwright Relationship Specialty Start Date End Date Anthony Chang MD [address] [place] [address] PCP - General Internal Medicine 03/13/23
--- OUTSIDE RECORDS SUMMARY | 2024-11-19 11:11 | XMS_ITS | Encounter Summary ---
Author Organization [facility] Address [address] [address] Phone Care Team Providers Care Resident Care Aide Name Role Phone Anthony Chang MD Primary Care Provider [phone] Reason for Visit * Reason Comments Med Refill Encounter Details Date Type Department Care Team ([facility] Contact Info) Description 11/15/2024 Refill [facility] [address] [address] Irineo Schwartz MD [address] [address] Social History Tobacco Use Types Packs/Day Years Used Date Smoking Tobacco: Never Smokeless Tobacco: Never Alcohol Use Standard Drinks/Week Comments Never 0 (1 standard drink = 0.6 oz pur e alcohol) Sex and Gender Information Value Date Recorded Sex Assigned at Not on file Legal Sex Male 2:14 PM EDT Gender Identity Not on file Sexual Orientation Not on file documented as of this encounter Plan of Treatment Upcoming Encounters Date Type Department Care Team (Late Contact Info) Description 12/18/2024 4:15 PM EDT [facility] [address] [place] [id number] Stephen Pina MD [facility] [address] [address] documented as of this encounter Visit Diagnoses Not on filedocumented in this encounter Care Teams Resident Care Aide Relationship Specialty Start Date End Date Anthony Chang MD [address] [place] [address] [place] PCP - General Internal Medicine 03/13/23 documented as of this encounter
--- OUTSIDE RECORDS SUMMARY | 2024-11-19 11:11 | XMS_ITS | Patient Health Record ---
Author Organization [facility] Address [address] [place] [address] Care Team Providers Care Bacteriologist Pharmaceutical Name Role Phone Charlene PEREZ, Anthony Primary Care Provider Unavailab Suhail Figueroa Jr Unavailable [phone] Vitaly PEREZ, Erickson Unavailable Unavailable Reason For Referral No Information Plan Of Treatment No Information Insurance Providers Payer Name Payer Address Payer Phone Subscriber Number Group Number Insured Name Patient Relationship to Insured Coverage Start Date Coverage End Date MEDICARE OF [place] [address] [place] [address] [id number] LILIANA GAGE Self - patient is the insured MEDEX ATTN CLAIMS [address] [place] [address] [id number] LILIANA GAGE Self - patient is the insured
--- OUTSIDE RECORDS SUMMARY | 2024-11-19 11:11 | XMS_ITS | Encounter Summary ---
Author Organization [facility] Address [address] [facility] [address] [place] [address] Phone Care Team Providers Care Certified Ophthalmic Surgical Assistant Name Role Phone Anthony Chang MD Primary Care Provider [phone] Reason for Visit * Reason Onset Date Comments Med Refill 11/17/2024 Encounter Details Date Type Department Care Team ([facility] Contact Info) Description 11/17/2024 Refill [facility] [address] [address] Edwina Meredith [address] [facility] [address] [place] [phone] Social History Tobacco Use Types Packs/Day Years [...] Office Visit [facility] [address] [place] [address] Stephen Pina MD [address] [facility] [address] [place] [address] documented as of this encounter Visit Diagnoses Not on filedocumented in this encounter Care Teams Certified Ophthalmic Surgical Assistant Relationship Specialty Start Date End Date Anthony Chang MD [address] [place] [address] [place] PCP - General Internal Medicine 03/13/23 documented as of this encounter
== END 2024-11-19 10:10 | disposition home or self-care (01) ==
LOC: HO.ACS 09:51
PROVIDERS: PCP Internal Medicine; Visit Provider Internal Medicine Medical Oncology
DX: Z79.01 Long term (current) use of anticoagulants (principal)

== ENCOUNTER → 2024-11-19 09:51 | Outpatient (BNVA) | payer MEDICARE, SELFPAY | PROVIDERS: PCP Internal Medicine; Visit Provider Internal Medicine Medical Oncology | DX: I48.20 Chronic atrial fibrillation, unspecified (principal); I48.21 Permanent atrial fibrillation; Z79.01 Long term (current) use of anticoagulants; Z51.81 Encounter for therapeutic drug level monitoring | CPT/HCPCS: 85610; 99211 ==

== ENCOUNTER 2024-12-19 14:42 | Outpatient (AMB) | payer MEDICARE, SELFPAY ==
--- OUTSIDE RECORDS SUMMARY | 2024-12-19 14:43 | XMS_ITS | Clinical Summary ---
Author Organization [facility] Address [address] [place] [address] Phone Care Team Providers Care Licensed Club Manager Name Role Phone Anthony Chang MD Primary Care Provider [phone] Allergies No known active allergies Medications Fluticasone-José [...] 90 tablet 3 4 05/29/20 25 Active Dapagliflozin Propanediol (Farxiga) 10 MG tablet Take 10 mg by mouth 1 (one) time each day in the morning 30 tablet 11 5 Active Active Problems Problem Noted Date Diagnosed [...] Encounters Date Type Department Care Team Description 12/18/2024 4:15 PM EDT Office Visit [facility] [address] [address] Stephen Pina MD Stage 3a chronic kidney disease (HCC) (Primary Dx); Hypertensive chronic kidney disease stage 3; Hypertension; Type 2 diabetes mellitus with diabetic chronic kidney disease (HCC) 11/17/2024 Refill [facility] [address] [place] [address] MasoudMaricel saldanafer 11/15/2024 Refill [facility] [address] [place] [address] Irineo Schwartz MD from Last 3 [...] Sign Reading Time Taken Comments Blood Pressure 107/67 12/18/2024 4:07 PM EDT Pulse 74 12/18/2024 4:07 PM EDT Temperature - - Respiratory Rate - - Oxygen Saturation 95% 05/30/2023 9:05 AM EDT Inhaled Oxygen Concentration - - Weight 113 kg (250 lb) 12/18/2024 4:07 PM EDT Height - - Body Mass Index - - Plan of Treatment Upcoming Encounters Date Type Department Care Team (Late st Contact Info) Description 06/18/2025 2:30 PM EST Office Visit [facility] [address] [place] [address] Stephen Pina MD [address] [address] Health Maintenance Due Date Last [...] Procedure Name Priority Date/Time Associated Diagnosis Comments URINE ALBUMIN / CREATININE RATIO Routine 12/18/2024 5:00 PM EDT Stage 3a chronic kidney disease (HCC) Hypertensive chronic kidney disease stage 3 Hypertension RENAL FUNCTION PANEL Routine 12/18/2024 5:00 PM EDT Stage 3a chronic kidney disease (HCC) Hypertensive chronic kidney disease stage 3 Hypertension HEMOGLOBIN A1C Routine 05/30/2023 9:50 AM EDT Hyperkalemia Stage 3b chronic kidney disease (HCC) Acute kidney injury due to circulatory failure (HCC) from Last 3 Months or Most Recently Relevant to Health Maintenance Results * (ABNORMAL) Renal function panel (12/18/2024 5:00 PM EDT) Glucose 306(H) 70 - 99 mg/dL [facility] BUN 41(H) 8 - 27 mg/dL [facility] Creatinine 2.27(H) 0.76 - 1.27 mg/dL [facility] eGFR CKD-EPI CR 2020 28(L) >59 mL/min/1.7 3 [facility] BUN/Creatinine Ratio 18 10 - 24 [facility] Sodium 138 134 - 144 mmol/L [facility] Potassium 4.9 3.5 - 5.2 mmol/L [facility] Chloride 96 96 - 106 mmol/L [facility] Bicarbonate (CO2) 18(L) 20 - 29 mmol/L [facility] Calcium 8.5(L) 8.6 - 10.2 mg/dL [facility] Albumin 3.9 3.7 - 4.7 g/dL [facility] Phosphorus 4.4(H) 2.8 - 4.1 mg/dL [facility] Blood (Blood, Venous) 12/18/2024 5:00 PM EDT 12/18/2024 Stephen Pina MD LAB BLOOD ORDERABLES Final Resu lt [facility] [address] [place] [phone] * (ABNORMAL) Hemoglobin A1c (05/30/2023 9:50 AM EDT) Hemoglobin A1C 7.2(H) (4.0-5.6) % [facility] Comment: MONITORING: In known diabetic patients, hemoglobin A1c targets should be discussed with health care provider. DIAGNOSTIC USE: ??The [place] Diabetes Association (ADA) and the World Health [...] Supplement 1 Testing performed or reported by [facility], a Service of [facility], [address] [place] [id number] Faizan Christiansen MD, Sas Developer [facility]# [id number] Blood (Blood, Venous) 05/30/2023 9:50 AM EDT 05/30/2023 9:56 AM EDT Larry Powell MD LAB BLOOD ORDERABLES Pina l Result [facility] from Last 3 Months or Most Recently Relevant to Health Maintenance Insurance [facility] Medicare Medicare [facility] Care Teams Licensed Club Manager Relationship Specialty Start Date End Date Anthony Chang MD [address] [place] [address] PCP - General Internal Medicine 03/13/23
--- OUTSIDE RECORDS SUMMARY | 2024-12-19 14:43 | XMS_ITS | Encounter Summary ---
Author Organization [facility] Address [address] [place] [phone] Phone Care Team Providers Care Bridge Worker Name Role Phone Anthony Chang MD Primary Care Provider [phone] Reason for Visit * Reason Comments Chronic Kidney Disease Encounter Details Date Type Department Care Team ([facility] st Contact Info) Description 12/18/2024 4:15 PM EDT Office Visit [facility]. [address] [place] [address] Stephen Pina MD [facility] [address] [address] Stage 3a chronic kidney disease (HCC) (Primary Dx); Hypertensive chronic kidney disease stage 3; Hypertension; Type 2 diabetes mellitus with diabetic chronic kidney disease (HCC) Social History Tobacco Use Types Packs/Day Years [...] on file documented as of this encounter Last Filed Vital Signs Vital Sign Reading Time Taken Comments Blood Pressure 107/67 12/18/2024 4:07 PM EDT Pulse 74 12/18/2024 4:07 PM EDT Temperature - - Respiratory Rate - - Oxygen Saturation - - Inhaled Oxygen Concentration - - Weight 113 kg (250 lb) 12/18/2024 4:07 PM EDT Height - - Body Mass Index - - documented in this encounter Progress Notes * Stephen Pina MD - 12/18/2024 4:15 PM EDT Images from the original note were not included. Patient Name: Vishal Ford SR, Male Date of : 1940, 84 y.o. Date: 12/18/2024 History of Present Illness Mr. Vishal Ford SR is an 82-year-old male with past medical history of DM2 c/b neuropathy, asthma, COPD, afib on AC, Aortic stenosis s/p bioprosthetic valve, HLD, HTN, HFpEF, GERD who presents forf/u re CKD Improved SOB / Orthopnea Edema is better C/o arthritic pains Background : Mr. Ford has had CKD since at least 2013 with BL cr 1.3-1.5mg/dL. He has had 2 episodes of ALENA, Cr peak 2.0mg/dL on 08/24/2021 (admitted to hospital for dehydration, improved with IVF support) and Cr peak 2.2mg/dL. His Cr has since recovered to about 1.7mg/dL, likely representing some incomplete recovery. Scr 1.7 and GFR of 39 on 12/15/22 UA bland 08/26/22 No prior TP/CR ratio No prior kidney imaging Hb 10.1 and PLT of 320 on 08/27/21 Pt also has ongoing hyperkalemia with K 5.4-5.7meq/L since 11/14/2022. Past Medical History Past Medical History: Diagnosis Date Aortic valve stenosis Asthma Atrial fibrillation (HCC) Chronic airway obstruction, not elsewhere classified (HCC) Chronic renal insufficiency Congestive heart failure (HCC) Diabetes mellitus without mention of complication, type II or unspecified type, not stated as uncontrolled (HCC) Dyslipidemia Essential hypertension Gastroesophageal reflux disease Generalized degenerative joint disease Glaucoma Glaucoma Heart block Obesity Other and unspecified hyperlipidemia Peripheral neuropathy Permanent cardiac pacemaker Past Surgical History Past Surgical History: Procedure Laterality Date AORTIC VALVE REPLACEMENT CARDIAC PACEMAKER PLACEMENT KNEE SURGERY Left Family History History reviewed. No pertinent family history. Social History Social History Tobacco Use Smoking status: Never Smokeless tobacco: Never Substance Use Topics Alcohol use: Never Review of Systems Constitutional: Negative for chills and fever. HENT: Negative for congestion, ear pain, hearing loss and sore throat. Eyes: Negative for pain and discharge. Respiratory: Negative for cough, shortness of breath and wheezing. Cardiovascular: Negative for chest pain, palpitations and leg swelling. Gastrointestinal: Negative for abdominal pain, blood in stool, constipation, diarrhea, nausea and vomiting. Genitourinary: Negative for dysuria, frequency, hematuria and urgency. Musculoskeletal: Negative for back pain, myalgias and neck pain. Skin: Negative for rash. Neurological: Negative for dizziness, tremors and headaches. Endo/Heme/Allergies: Negative for polydipsia. Does not bruise/bleed easily. Medication List Current Outpatient Medications Medication Sig Dispense Refill ALBUTEROL IN Inhale apixaban (Eliquis) 2.5 MG tablet 2.5 mg 1 (one) time each day carvedilol (COREG) 6.25 MG tablet 6.25 mg Dapagliflozin Propanediol (Farxiga) 10 MG tablet Take 10 mg by mouth 1 (one) time each day in the morning 30 tablet 11 Fluticasone-Salmeterol (Advair Diskus) 250-50 MCG/ACT aerosol powder Inhale gabapentin (NEURONTIN) 100 MG capsule Take 100 mg by mouth 1 (one) time each day gabapentin (NEURONTIN) 600 MG tablet 600 mg 1 (one) time each day glipiZIDE (GLUCOTROL) 5 MG tablet Take 5 mg by mouth in the morning and 5 mg in the evening. Take before meals. ipratropium-albuterol (DUO-NEB) 0.5-2.5 mg/3 mL nebulizer solution Inhale 3 mL latanoprost (XALATAN) 0.005 % ophthalmic solution Per instructions BEDTIME (route: ophthalmic (eye)) levobunolol (BETAGAN) 0.5 % ophthalmic solution 1 drop every night meclizine (ANTIVERT) 25 MG tablet Take 25 mg by mouth Multiple Vitamin (MULTI-VITAMIN DAILY PO) 0 Refills, Maintenance, 04/26/22 15:37:00 EDT, Partial fill upon patient request if the prescription is for a schedule II opioid drug. Omeprazole 20 MG tablet delayed-release Per instructions DAILY (route: oral) oxyCODONE (OXY-IR) 5 MG immediate release capsule Per instructions EVERY 6 HOURS (route: oral) simvastatin (ZOCOR) 20 MG tablet Per instructions DAILY (route: oral) torsemide (DEMADEX) 20 MG tablet Take 1 tablet (20 mg total) by mouth 1 (one) time each day 90 tablet 3 No current facility-administered medications for this visit. Allergy List No Known Allergies Physical Exam BP 107/67 Pulse 74 Wt 250 lb (113 kg) Vitals reviewed. Constitutional: He does not appear ill. HEENT: Right Ear: Hearing normal. Left Ear: Hearing normal. Nose: Nose normal. Mouth/Throat: Oropharynx is clear and moist. Eyes: Conjunctivae are normal. Pupils are equal, round, and reactive to light. No scleral icterus. Neck: No thyroid mass and no thyromegaly present. Cardiovascular: Normal rate and regular rhythm. Exam reveals no friction rub. No murmur heard.He exhibits edema. Pulmonary/Chest: Effort normal. No respiratory distress. He has no wheezes. He has rales. Abdominal: Soft. There is no abdominal tenderness. No hernia. Musculoskeletal: Normal range of motion. He exhibits no deformity. Skin: Skin is warm and dry. No rash noted. No erythema. Psychiatric: He has a normal mood and affect. His behavior is normal. Judgment normal. Labs Chemistry Lab Units 10/28/23 0000 05/30/23 0950 CREATININE mg/dL 1.50* 1.8* BUN mg/dL 25* 25* POTASSIUM MMOL/L -- 5.9* SODIUM 137 141 CO2 mmol/L 24 28 CHLORIDE 103.0 103 ALBUMIN g/dL 3.8 3.6 4.2 EGFRNAFR 46 38 HEMOGLOBIN A1C 128.0* 7.2* WBC AUTO 10*3/ML 11.0* 6.8 HEMATOCRIT 40.5* 40.1* HEMOGLOBIN 12.8* 12.2* PLATELETS AUTO 10*3/UL 178 198 Bone Mineral Lab Units 10/28/23 0000 05/30/23 0950 CALCIUM mg/dL 8.9 10.1 PHOSPHORUS MG/DL -- 3.4 ALK PHOS U/L 77 -- PTH PG/ML -- 49 VITAMIN D NG/ML -- 38.8 Assessment & Plan 1. Stage 3a chronic kidney disease (HCC) 2. Hypertensive chronic kidney disease stage 3 3. Hypertension 4. Type 2 diabetes mellitus with diabetic chronic kidney disease (HCC) ALENA on CKD stage IIIb ALENA in the past usually due to hemodynamic renal injury, meaning renal hypo-perfusion Last ALENA in November, Lisinopril and diuretics stopped, Cr improved from 1.7 mg/dL peak to 2.2mg/dL.> 1.5 New baseline With such a bland urinalysis and lack of proteinuria, the patients CKD is related to recurrent ALENA and renal hypo-perfusion. I doubt any glomerular disease, there is no signs of nephritis. Plan: - CKD is stable - f/u in 1months 2. T2DM Off metformin. On SGLT-2 C/w glipizide. 3. HTN / Volume Off FIONA Torsemide 20 mg daily Repeat labs ordered 4. Hyperkalemia Toff KCL - Resolved Low K diet Off FIONA 5. 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 Orders Placed This Encounter Renal function panel Urine Albumin / Creatinine Ratio Renal function panel PTH, intact Urine Protein / creatinine ratio Vitamin D 25 hydroxy Return in about 6 months (around 06/20/2025). Stephen Pina MD [facility] documented in this encounter Plan of Treatment Upcoming Encounters Date Type Department Care Team (Late st Contact Info) Description 06/18/2025 2:30 PM EST Office Visit [facility] [address] [place] [address] Stephen Pina MD [address] [phone] Pending Results Name Type Priority Associated Diagnoses Date /Time Urine Albumin / Creatinine Ratio Lab Routine Stage 3a chronic kidney disease (HCC) Hypertensive chronic kidney disease stage 3 Hypertension 12/18/2024 5:00 PM EDT Scheduled Orders Name Type Priority Associated Diagnoses Orde r Schedule Renal function panel Lab Routine Stage 3a chronic kidney disease (HCC) Hypertensive chronic kidney disease stage 3 Hypertension Type 2 diabetes mellitus with diabetic chronic kidney disease (HCC) Expected: 05/11/2025, Expires: 08/06/2025 PTH, intact Lab Routine Stage 3a chronic kidney disease (HCC) Hypertensive chronic kidney disease stage 3 Hypertension Type 2 diabetes mellitus with diabetic chronic kidney disease (HCC) Expected: 05/11/2025, Expires: 08/06/2025 Urine Protein / creatinine ratio Lab Routine Stage 3a chronic kidney disease (HCC) Hypertensive chronic kidney disease stage 3 Hypertension Type 2 diabetes mellitus with diabetic chronic kidney disease (HCC) Expected: 05/11/2025, Expires: 08/06/2025 Vitamin D 25 hydroxy Lab Routine Stage 3a chronic kidney disease (HCC) Hypertensive chronic kidney disease stage 3 Hypertension Type 2 diabetes mellitus with diabetic chronic kidney disease (HCC) Expected: 05/11/2025, Expires: 08/06/2025 documented as of this encounter Procedures Procedure Name Priority Date/Time Associated Diagnosis Comments URINE ALBUMIN / CREATININE RATIO Routine 12/18/2024 5:00 PM EDT Stage 3a chronic kidney disease (HCC) Hypertensive chronic kidney disease stage 3 Hypertension RENAL FUNCTION PANEL Routine 12/18/2024 5:00 PM EDT Stage 3a chronic kidney disease (HCC) Hypertensive chronic kidney disease stage 3 Hypertension documented in this encounter Results * (ABNORMAL) Renal function panel (12/18/2024 5:00 PM EDT) Glucose 306(H) 70 - 99 mg/dL [facility] BUN 41(H) 8 - 27 mg/dL [facility] Creatinine 2.27(H) 0.76 - 1.27 mg/dL [facility] eGFR CKD-EPI CR 2020 28(L) >59 mL/min/1.7 3 [facility] BUN/Creatinine Ratio 18 10 - 24 [facility] Sodium 138 134 - 144 mmol/L [facility] Potassium 4.9 3.5 - 5.2 mmol/L [facility] Chloride 96 96 - 106 mmol/L [facility] Bicarbonate (CO2) 18(L) 20 - 29 mmol/L [facility] Calcium 8.5(L) 8.6 - 10.2 mg/dL [facility] Albumin 3.9 3.7 - 4.7 g/dL [facility] Phosphorus 4.4(H) 2.8 - 4.1 mg/dL [facility] Blood (Blood, Venous) 12/18/2024 5:00 PM EDT 12/18/2024 us Stephen Pina MD LAB BLOOD ORDERABLES Final Resu lt [facility] [address] [place] [phone] documented in this encounter Visit Diagnoses Diagnosis Stage 3a chronic kidney disease (HCC)- Primary Hypertensive chronic kidney disease stage 3 Hypertension Type 2 diabetes mellitus with diabetic chronic kidney disease (HCC) documented in this encounter Care Teams Bridge Worker Relationship Specialty Start Date End Date Anthony Chang MD [address] [place] [address] PCP - General Internal Medicine 03/13/23 documented as of this encounter
--- OUTSIDE RECORDS SUMMARY | 2024-12-19 14:43 | XMS_ITS | Patient Health Record ---
Author Organization [facility] Address [address] [place] [address] Care Team Providers Care Respiratory Therapist Assistant Name Role Phone Charlene PEREZ, Anthony Primary Care Provider Unavailab Suhail Figueroa Jr Unavailable Vitaly PEREZ, Erickson Unavailable Unavailable Reason For Referral No Information Plan Of Treatment No Information Insurance Providers Payer Name Payer Address Payer Phone Subscriber Number Group Number Insured Name Patient Relationship to Insured Coverage Start Date Coverage End Date MEDICARE OF [place] [address] [place] [address] [id number] LILIANA GAGE Self - patient is the insured MEDEX ATTN CLAIMS [address] [place] [address] [id number] LILIANA GAGE Self - patient is the insured
--- OUTSIDE RECORDS SUMMARY | 2024-12-19 14:43 | XMS_ITS | Encounter Summary ---
Author Organization [facility] Address [address] [address] Phone Care Team Providers Care Level Vial Setter Name Role Phone Anthony Chang MD Primary Care Provider [phone] Reason for Visit * Reason Comments Med Refill Encounter Details Date Type Department Care Team ([facility] Contact Info) Description 11/15/2024 Refill [facility] [address] [address] Irineo Schwartz MD [address] [phone] Social History Tobacco Use Types [...] Department Care Team (Late Contact Info) Description 06/18/2025 2:30 PM EST [facility] [address] [place] [phone] Stephen Pina MD [address] [phone] documented as of this encounter Visit Diagnoses Not on filedocumented in this encounter Care Teams Level Vial Setter Relationship Specialty Start Date End Date Anthony Chang MD [address] [place] [address] [place] PCP - General Internal Medicine 03/13/23 documented as of this encounter
[2024-12-19 15:08] LABS: Prothrombin Time Whole Bld POC 35.3 sec (11.1-13.5); ~PT, ~INR - Anti Coag Clinic 2.9 (0.9-1.1)
--- NOTE | 2024-12-19 15:10 | MHC.OFFVISCO ---
Intake Intake Visit Reasons: Anticoagulation Allergies No Known Allergies* Allergy (Uncoded 12/19/24 14:44) NKA Medication List - Last Reconciled 12/19/24 by Vannessa Borges RN acetaminophen 1,000 mg PO BID PRN albuterol sulfate 90 mcg/actuation (ProAir HFA) 2 puffs PO Q4H PRN carvedilol 1 tab PO BID dapagliflozin propanediol (Farxiga) 10 mg PO DAILY docusate sodium (Stool Softener) 1 cap PO BID gabapentin 800 mg PO 3XD glipizide 5 mg PO BID ipratropium-albuterol 0.5 mg-3 mg(2.5 mg base)/3 mL 3 mL inhalation Q6H PRN latanoprost 0.005% 1 drp ophthalmic-Right BEDTIME levobunolol 0.5% 1 drp ophthalmic-Right BID meclizine 25 mg PO TID metformin 500 mg PO BID omeprazole 20 mg PO DAILY@0630 polyethylene glycol 3350 (Miralax) 17 grams PO BEDTIME potassium chloride ER 1 tab PO BID simvastatin 1 tab PO BEDTIME torsemide 20 mg PO DAILY warfarin 5 mg See Protocol PO DAILY Nursing Note INR: 2.9 in therapeutic range of 2-3 Medications and supplements reviewed Pt states he had appt with Dr Chang today and will be starting on metformin. This med can lower the INR. No changes in health, diet, or supplements, Denies any signs and symptoms of bleeding or bruising or clotting. Bleeding, bruising, clotting discussed Nutritional guidance given to increase the foods that can raise the INR. Pt states he likes beets and will have it 1X/week Dose: 2.5mg X 4 days and 5mg X 3 days F/U INR: 2 weeks Patient verbalizes understanding of instructions given Anti-Coag Initial Assessment Social Hx Patient Tobacco Use Status: Former Tobacco user Tobacco use type: Cigarette Smoking packs per day: 1 (quit approx 40 years ago) alcohol intake: never Cardiovascular Hx: CAD, HI, CHF, Arrhythmias and Other (pacemaker) Lung Disease HX: COPD Endocrine Hx: Diabetes Musculoskeletal Hx: Arthritis Blood Disorder Hx: Hyperlipidemia Hx: Kidney Disease Neurological Hx: Serious Head Injury Cancer HX: No Psych. Illness/Depression: No Coding Level of Care Code Est Patient Level 1 Diagnoses Current use of anticoagulant therapy Z79.01 Results AMB INR Fingerstick AMB INR Fingerstick 2.9 Last Edit by Vannessa Borges RN on 12/19/24 15:04 interface delay Assessment & Plan Assessment & Plan (1) Current use of anticoagulant therapy: Code(s): Z79.01 - longterm (current) use of anticoagulants Category: Medical
== END 2024-12-19 15:25 | disposition home or self-care (01) ==
LOC: HO.ACS 14:42
PROVIDERS: PCP Internal Medicine; Visit Provider Internal Medicine Medical Oncology
DX: Z79.01 Long term (current) use of anticoagulants (principal)

== ENCOUNTER → 2024-12-19 14:42 | Outpatient (BNVA) | payer MEDICARE, SELFPAY | PROVIDERS: PCP Internal Medicine; Visit Provider Internal Medicine Medical Oncology | DX: I48.21 Permanent atrial fibrillation (principal); Z79.01 Long term (current) use of anticoagulants; Z51.81 Encounter for therapeutic drug level monitoring | CPT/HCPCS: 85610; 99211 ==

== ENCOUNTER 2025-01-06 15:02 | Outpatient (AMB) | payer MEDICARE, SELFPAY ==
[2025-01-06 15:08] LABS: Prothrombin Time Whole Bld POC 43.1 sec (11.1-13.5); ~PT, ~INR - Anti Coag Clinic 3.6 (0.9-1.1)
--- NOTE | 2025-01-06 15:16 | MHC.OFFVISCO ---
Intake Intake Visit Reasons: Anticoagulation Allergies No Known Allergies* Allergy (Uncoded 01/06/25 15:03) NKA Medication List - Last Reconciled 01/06/25 by Vannessa Borges RN acetaminophen 1,000 mg PO BID PRN albuterol sulfate 90 mcg/actuation (ProAir HFA) 2 puffs PO Q4H PRN carvedilol 1 tab PO BID dapagliflozin propanediol (Farxiga) 10 mg PO DAILY docusate sodium (Stool Softener) 1 cap PO BID gabapentin 800 mg PO 3XD glipizide 5 mg PO BID ipratropium-albuterol 0.5 mg-3 mg(2.5 mg base)/3 mL 3 mL inhalation Q6H PRN latanoprost 0.005% 1 drp ophthalmic-Right BEDTIME levobunolol 0.5% 1 drp ophthalmic-Right BID meclizine 25 mg PO TID metformin 500 mg PO BID omeprazole 20 mg PO DAILY@0630 polyethylene glycol 3350 (Miralax) 17 grams PO BEDTIME potassium chloride ER 1 tab PO BID simvastatin 1 tab PO BEDTIME torsemide 20 mg PO DAILY warfarin 5 mg See Protocol PO DAILY Nursing Note INR: 3.6 out of therapeutic range of 2-3 Medications and supplements reviewed Patient status: no changes Medications or supplements: no changes Diet: no changes Denies any signs and symptoms of bleeding or clotting or unusual bruising Bleeding, bruising, clotting discussed Nutritional guidance given: to have a serving of greens today Dose: hold today's dose of 2.5mg then 2.5mg X 4 days and 5mg X 3 days (M/W/) F/U INR Date: 01/20/25?? Patient verbalizing understanding of instructions given. Anti-Coag Initial Assessment Social Hx Patient Tobacco Use Status: Former Tobacco user Tobacco use type: Cigarette Smoking packs per day: 1 (quit approx 40 years ago) alcohol intake: never Cardiovascular Hx: CAD, SC, CHF, Arrhythmias and Other (pacemaker) Lung Disease HX: COPD Endocrine Hx: Diabetes Musculoskeletal Hx: Arthritis Blood Disorder Hx: Hyperlipidemia Hx: Kidney Disease Neurological Hx: Serious Head Injury Cancer HX: No Psych. Illness/Depression: No Coding Level of Care Code Est Patient Level 1 Diagnoses Current use of anticoagulant therapy Z79.01 Assessment & Plan Assessment & Plan (1) Current use of anticoagulant therapy: Code(s): Z79.01 - visual educator (current) use of anticoagulants Category: Medical
--- OUTSIDE RECORDS SUMMARY | 2025-01-06 16:42 | XMS_ITS | Encounter Summary ---
Author Organization [facility] Address [address] [address] Phone Care Team Providers Care Sorting Supervisor Name Role Phone Anthony Chang MD Primary Care Provider [phone] Reason for Visit * Reason Comments Med Refill Encounter Details Date Type Department Care Team ([facility] Contact Info) Description 11/15/2024 Refill [facility] [address] [address] Irineo Schwartz MD [address] [address] Social History Tobacco Use Types [...] Office Visit [facility] [address] [place] [address] Stephen Pina MD [address] [address] documented as of this encounter Visit Diagnoses Not on filedocumented in this encounter Care Teams Sorting Supervisor Relationship Specialty Start Date End Date Anthony Chang MD [address] [place] [address] [place] PCP - General Internal Medicine 03/13/23 documented as of this encounter
== END 2025-01-06 15:22 | disposition home or self-care (01) ==
LOC: HO.ACS 15:02
PROVIDERS: PCP Internal Medicine; Visit Provider Internal Medicine Medical Oncology
DX: Z79.01 Long term (current) use of anticoagulants (principal)

== ENCOUNTER → 2025-01-06 15:02 | Outpatient (BNVA) | payer MEDICARE, SELFPAY | PROVIDERS: PCP Internal Medicine; Visit Provider Internal Medicine Medical Oncology | DX: I48.21 Permanent atrial fibrillation (principal); Z79.01 Long term (current) use of anticoagulants; Z51.81 Encounter for therapeutic drug level monitoring | CPT/HCPCS: 85610; 99211 ==

== ENCOUNTER 2025-01-12 10:52 | Outpatient (AMB) | payer MEDICARE, SELFPAY ==
--- NOTE | 2025-01-12 10:54 | MHC.PC.OV ---
Vital Signs 01/12/25 11:06 Height 5 ft 5.5 in Weight 257 lb 4 oz BMI 42.2 BP 150/72 H Blood Pressure Location Rt brachial Position Sitting Respiration 14 Pulse 67 Pulse Source Pulse Oximeter Temp 98 F Temp Source Oral Pulse Oximetry (%) 95 Oxygen Delivery Method Room Air Intake Visit Reasons: est care Intake Note: New patient visit Allergies No Known Allergies* Allergy (Uncoded 01/06/25 15:03) NKA Tobacco use date assessed: 01/12/25 Fall risk assessment: No Falls in past year Last assessed Fall Risk: 01/12/25 Dental Screening Dental Screen Date: 01/12/25 Did you have a dental visit in the last 12 months?: No Did you have a dental problem in the last 6 months where you did not have access to dental care?: No Was dental information given to patient?: Patient has dentist HPI HPI Comments History of Present Illness Details The patient is a 84 year old male with a past medical history of CHF, CAD s/p [place], PPM, , diabetes presenting to [facility]. Transferring from Dr Chang. CV: Follows with cardiology, Dr Huang. On coumadin, torsemide. Chronic exertional dyspnea. Denies chest pain. DM: on glipizide, farxiga, metformin. Diabetes is uncontrolled. He notes worsening rash of the lower abdomen and groin. Starting to get breakdown of the skin and wetness/purulence. Has been more fatigued. His adult daughter lives with him. She has some medical issues. He is having trouble getting around, cleaning, cooking. Colonoscopy Dr Akhtar 2020-colonic polyps, hemorrhoid. EGD small hiatal hernia ROS see HPI PHYSICAL EXAM: GENERAL: Obese, alert and oriented x 3. NAD EYES: EOMI. Anicteric. HENT: Moist mucous membranes. No scleral icterus. No cervical lymphadenopathy. LUNGS: Clear to auscultation bilaterally. CARDIOVASCULAR: Regular rate and rhythm. No murmur. No JVD. ABDOMEN: Soft, non-tender +bs EXTREMITIES: No edema. Non-tender. SKIN:Marked tinea with superimposed cellulitic features NEUROLOGIC: No focal neurological deficits. CN II-XII grossly intact PSYCHIATRIC: Cooperative. Appropriate mood and affect [facility] Medical History On anticoagulant therapy Hx of myocardial infarction Obesity Glaucoma Hyperlipidemia Hx of congestive heart failure DJD (degenerative joint disease) History of heart block Hx of angina pectoris GERD (gastroesophageal reflux disease) Atrial fibrillation and flutter History of cardiac pacemaker Aortic stenosis Symptomatic anemia Coronary artery disease Hypertension Diabetes mellitus type 2 in obese COPD (chronic obstructive pulmonary disease) CHF exacerbation Normocytic anemia Surgical History Hx of colonoscopy Hx of esophagogastroduodenoscopy History of nasal surgery History of neck surgery History of permanent cardiac pacemaker placement History of total left knee replacement Hx of aortic valve replacement Social History Housing: House Housing Other:: lives with daughter Alcohol intake: never Comment: patient states improved breathing Patient Tobacco Use Status: Former Tobacco user Tobacco use type: Cigarette Cigarette Packs Per Day: 1 (quit approx 40 years ago) Years Smoked: 30 e-Cigarette/Vaping Use: Never Used Second Hand Smoke Exposure: No Advance Directives Date on File: 05/13/20 service: No Current occupational status: retired Current occupation: retired Current occupational exposures/hazards: Yes (former occupation as [employer]/ used to breathe in dry cement and galena powder) Cognitive needs: No Hearing needs: No Vision needs: No Physical exam (Primary Care) Vital Signs: Last Vital Signs Temp 98 F 01/12/25 11:06 Pulse 67 01/12/25 11:06 Resp 14 01/12/25 11:06 BP 150/72 H 01/12/25 11:06 Pulse Ox 95 01/12/25 11:06 Oxygen Delivery Method Room Air 01/12/25 11:06 BMI result Body Mass Index 42.2 Tobacco/Smoking Status: Tobacco use Status Tobacco use date assessed 01/12/25 01/12/25 11:06 Patient Tobacco Use Status Former Tobacco user 01/12/25 10:57 Tobacco use type Cigarette 01/12/25 10:57 e-Cigarette/Vaping Use Never Used 01/12/25 11:06 Coding Level of Care Code New Pt Level 4 (68737) Complex EM visit Add On G2211 Diagnoses Cellulitis, unspecified cellulitis site L03.90 Site of cellulitis: unspecified site Yeast infection B37.9 Type 2 diabetes mellitus with hyperglycemia, without long-term current use of insulin E11.65 Diabetes mellitus type: type 2 Diabetes mellitus watermelon inspector insulin use: without watermelon inspector use Diabetes mellitus complication status: with hyperglycemia Paroxysmal atrial fibrillation I48.0 Atrial fibrillation type: paroxysmal Chronic obstructive pulmonary disease, unspecified COPD type J44.9 COPD type: unspecified COPD Assessment & Plan Assessment & Plan (1) Cellulitis: Code(s): L03.90 - Cellulitis, unspecified Category: Medical Qualifiers: Site of cellulitis: unspecified site Qualified Code(s): L03.90 - Cellulitis, unspecified (2) Yeast infection: Code(s): B37.9 - Candidiasis, unspecified Category: Medical (3) Diabetes: Code(s): E11.9 - Type 2 diabetes mellitus without complications Category: Medical Qualifiers: Diabetes mellitus type: type 2 Diabetes mellitus watermelon inspector insulin use: without watermelon inspector use Diabetes mellitus complication status: with hyperglycemia Qualified Code(s): E11.65 - Type 2 diabetes mellitus with hyperglycemia (4) Atrial fibrillation: Code(s): I48.91 - Unspecified atrial fibrillation Category: Medical Qualifiers: Atrial fibrillation type: paroxysmal Qualified Code(s): I48.0 - Paroxysmal atrial fibrillation (5) COPD (chronic obstructive pulmonary disease): Code(s): J44.9 - Chronic obstructive pulmonary disease, unspecified Category: Medical Qualifiers: COPD type: unspecified COPD Qualified Code(s): J44.9 - Chronic obstructive pulmonary disease, unspecified Plan 84 year old to establish care past medical, surgical, social reviewed Tinea cruris with superimposed cellulitis. Patient will need nursing/wound care at home to follow. 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 Antibiotic, antifungals ordered. Stop [facility] Labs ordered Orders: Orders Complete Blood Count Auto Diff 01/12/25 I25.10 - Atherosclerotic heart disease of [place] coronary artery without angina pectoris, I25.2 - Old myocardial infarction, I48.91 - Unspecified atrial fibrillation, J44.9 - Chronic obstructive pulmonary disease, unspecified Comprehensive Met. Panel 01/12/25 I25.10 - Atherosclerotic heart disease of [place] coronary artery without angina pectoris, I25.2 - Old myocardial infarction, I48.91 - Unspecified atrial fibrillation, J44.9 - Chronic obstructive pulmonary disease, unspecified Lipid Panel 01/12/25 I25.10 - Atherosclerotic heart disease of [place] coronary artery without angina pectoris, I25.2 - Old myocardial infarction, I48.91 - Unspecified atrial fibrillation, J44.9 - Chronic obstructive pulmonary disease, unspecified TSH reflex Free T4 01/12/25 I25.10 - Atherosclerotic heart disease of [place] coronary artery without angina pectoris, I25.2 - Old myocardial infarction, I48.91 - Unspecified atrial fibrillation, J44.9 - Chronic obstructive pulmonary disease, unspecified Hemoglobin A1c 01/12/25 I25.10 - Atherosclerotic heart disease of [place] coronary artery without angina pectoris, I25.2 - Old myocardial infarction, I48.91 - Unspecified atrial fibrillation, J44.9 - Chronic obstructive pulmonary disease, unspecified UA CC w/rflx Micro + Cult 01/12/25 I25.10 - Atherosclerotic heart disease of [place] coronary artery without angina pectoris, I25.2 - Old myocardial infarction, I48.91 - Unspecified atrial fibrillation, J44.9 - Chronic obstructive pulmonary disease, unspecified Vitamin B12 and Folate 01/12/25 E11.9 - Type 2 diabetes mellitus without complications, I48.91 - Unspecified atrial fibrillation Referrals Home Health Referral B37.9 - Candidiasis, unspecified, L03.90 - Cellulitis, unspecified Medications: New fluconazole 150 mg PO DAILY 7 tabs 0RF cephalexin 500 mg PO QID 7 days 28 caps 0RF clotrimazole 1% 1 appl topical BID 4 weeks 45 grams 1RF
[2025-01-12 11:06] VITALS: BP 150/72; PULSE 67; RESP 14; TEMP 36.6; O2SAT 95; BMI 42.2
--- OUTSIDE RECORDS SUMMARY | 2025-01-12 12:23 | XMS_ITS | Encounter Summary ---
Author Organization [facility] Address [address] [address] Phone Care Team Providers Care Discharging Machine Operator Name Role Phone Anthony Chang MD Primary Care Provider [phone] Reason for Visit * Reason Comments Med Refill Encounter Details Date Type Department Care Team ([facility] Contact Info) Description 11/15/2024 Refill [facility] [address] [address] Irineo Schwartz MD [address] [address] Social History Tobacco Use Types [...] Office Visit [facility] [address] [place] [address] Stephen Pina MD [address] [address] documented as of this encounter Visit Diagnoses Not on filedocumented in this encounter Care Teams Discharging Machine Operator Relationship Specialty Start Date End Date Anthony Chang MD [address] [place] [address] [place] PCP - General Internal Medicine 03/13/23 documented as of this encounter
== END 2025-01-12 11:38 | disposition home or self-care (01) ==
LOC: HO.HMCFM 10:53
PROVIDERS: PCP Internal Medicine; Visit Provider Internal Medicine
DX: E11.65 Type 2 diabetes mellitus with hyperglycemia (principal); I48.0 Paroxysmal atrial fibrillation; J44.9 Chronic obstructive pulmonary disease, unspecified; L03.90 Cellulitis, unspecified; B37.9 Candidiasis, unspecified

== ENCOUNTER → 2025-01-12 10:52 | Outpatient (BNVA) | payer MEDICARE, SELFPAY | PROVIDERS: PCP Internal Medicine; Visit Provider Internal Medicine | DX: Z76.89 Persons encountering health services in other specified circumstances (principal); L03.90 Cellulitis, unspecified; B37.9 Candidiasis, unspecified; E11.65 Type 2 diabetes mellitus with hyperglycemia; I48.0 Paroxysmal atrial fibrillation; J44.9 Chronic obstructive pulmonary disease, unspecified; I25.10 Atherosclerotic heart disease of native coronary artery without angina pectoris; Z79.01 Long term (current) use of anticoagulants; Z79.84 Long term (current) use of oral hypoglycemic drugs; I25.2 Old myocardial infarction | CPT/HCPCS: 99202 ==

== ENCOUNTER 2025-01-12 12:08 | Outpatient (REF) | payer MEDICARE, SELFPAY ==
[2025-01-12 14:12] LABS: MANUAL DIFF FLAG NO
[2025-01-12 14:32] LABS: Basophils Percent Auto 0.2 % (0-2); Eosinophils Percent Auto 0.4 % (0-4); Hematocrit 38.7 % (42.0-52.0); Hemoglobin 12.1 g/dl (14.0-18.0); Imm Gran Abs Auto 0.03 X10*3/uL (0.00-0.03); Imm Gran Pct Auto 0.6 % (0.0-0.4); Lymphocytes Absolute Auto 0.6 X10*3/uL (1.2-4.9); Lymphocytes Percent Auto 11.3 % (20-40); Mean Corpuscular HGB Conc 31.3 g/dl (31.0-36.0); Mean Corpuscular Hemoglobin 28.9 pg (27.0-33.0); Mean Corpuscular Volume 92.4 fL (80.0-98.0); Mean Platelet Volume 10.1 fL (9.4-12.4); Monocytes Absolute Auto 0.4 X10*3/uL (0.1-1.2); Monocytes Percent Auto 8.8 % (2-11); Neutrophils Absolute Auto 3.8 x10*3/uL (2.0-8.3); Neutrophils Percent Auto 78.7 % (45-73); Platelet Count 174 X10*3/uL (160-400); Red Blood Count 4.19 X10*6/uL (4.60-5.80); Red Cell Distribution Width 15.9 % (11.0-16.0); White Blood Count 4.9 X10*3/uL (4.8-10.8)
[2025-01-12 14:44] LABS: Estimated Average Glucose 237 mg/dL; Hemoglobin A1c % 9.9 % (<6.0); Total Hemoglobin (HGBA1C) 3242.4466 umol/L
[2025-01-12 14:52] LABS: Alanine Aminotransferase 16 U/L (0-40); Albumin Level 3.9 g/dL (3.5-5.0); Alkaline Phosphatase 63 U/L (39-117); Anion Gap 13 (12-20); Aspartate Amino Transferase 21 U/L (5-37); Bilirubin Total 0.4 mg/dL (0.0-1.0); Blood Urea Nitrogen 31 mg/dL (9-16); Calcium 9.1 mg/dL (8.4-10.2); Carbon Dioxide 28 mmol/L (22-29); Chloride 107 mmol/L (96-108); Cholesterol 167 mg/dL (<200); Estimated Glomerular Filt Rate 41; Glucose Random 196 mg/dL (60-115); HDL Cholesterol 48 mg/dL (>40); LDL Cholesterol Calculated 90 mg/dL (<100); Potassium 4.5 mmol/L (3.3-5.1); Sodium 143 mmol/L (135-145); Total Protein 6.3 g/dL (6.5-8.0); Triglycerides 145 mg/dL (<150)
[2025-01-12 15:11] LABS: TSH reflex Free T4 0.83 uIU/mL (0.32-4.0)
[2025-01-12 15:17] LABS: Folate 13.8 ng/mL (> or = 4.0); Vitamin B12 409 pg/mL (200-900)
== END 2025-01-12 12:09 | disposition home or self-care (01) ==
LOC: HO.WFDLDS 12:08
PROVIDERS: Visit Provider Internal Medicine
DX: E11.9 Type 2 diabetes mellitus without complications (principal); I25.2 Old myocardial infarction; J44.9 Chronic obstructive pulmonary disease, unspecified; I25.10 Atherosclerotic heart disease of native coronary artery without angina pectoris; I48.91 Unspecified atrial fibrillation
CPT/HCPCS: 36415; 80053; 80061; 82607; 82746; 83036; 84443; 85025